=== PATIENT | female | born 1965 | race Asian ===

== ENCOUNTER → 2017-06-24 14:42 | Outpatient (CLI) | payer OTHER, SELFPAY ==
[2017-06-24 16:05] LABS: Hematocrit 33.8 % (37-47); Hemoglobin 9.7 g/dl (12.0-15.0); Mean Corp Hgb Conc 28.7 g/gl (32-36); Mean Corpuscular Hgb 14.9 pg (27.0-32.0); Mean Corpuscular Volume 51.8 fL (81-99); Platelet Count 297 K/mm3 (150-450); RBC Distribution Width CV 21.8 % (11.6-14.6); RBC Distribution Width SD 38.8 fl (35.1-43.9); Red Blood Count 6.52 M/mm3 (4.2-5.4); White Blood Count 8.9 K/mm3 (4.4-11.0)
[2017-06-24 16:07] LABS: Scan Indicated on CBC? Y/N YES- FLAGS NOTED
[2017-06-24 16:11] LABS: AST(SGOT) 29 U/L (15-37); Alanine Aminotransfer ALT/SGPT 52 U/L (13-56); Albumin, Serum 3.8 g/dL (3.2-5.0); Alkaline Phosphatase 62 U/L (45-117); Bilirubin, Direct 0.09 mg/dL (0.00-0.30); Globulin 4.5 g/dL (2.2-4.2); Iron 19 ug/dL (50-170); Protein, Total 8.3 g/dL (6.4-8.2)
[2017-06-28 09:46] LABS: Pathologist Review Reviewed
== END ==
PROVIDERS: Family Provider Family Medicine; PCP Family Medicine; Visit Provider Internal Medicine Gastroenterology
DX: D50.9 Iron deficiency anemia, unspecified (principal); B18.1 Chronic viral hepatitis B without delta-agent
CPT/HCPCS: 36415; 80076; 82105; 83540; 85027

== ENCOUNTER → 2018-08-02 10:30 | Outpatient (CLI) | payer BC, SELFPAY ==
[2013-07-04 08:47] VITALS: BMI 22.4
[2018-08-02 12:19] LABS: Hematocrit 44.2 % (37-47); Hemoglobin 14.4 g/dl (12.0-15.0); Mean Corp Hgb Conc 32.6 g/gl (32-36); Mean Corpuscular Hgb 20.7 pg (27.0-32.0); Mean Corpuscular Volume 63.5 fL (81-99); Platelet Count 187 K/mm3 (150-450); RBC Distribution Width CV 15.1 % (11.6-14.6); RBC Distribution Width SD 33.8 fl (35.1-43.9); Red Blood Count 6.96 M/mm3 (4.2-5.4)
[2018-08-02 12:20] LABS: Scan Indicated on CBC? Y/N YES- FLAGS NOTED
[2018-08-02 12:53] LABS: ALB/GLOB Ratio 0.9 RATIO (0.9-2.4); AST(SGOT) 20 U/L (15-37); Alanine Aminotransfer ALT/SGPT 30 U/L (13-56); Albumin, Serum 3.9 g/dL (3.2-5.0); Alkaline Phosphatase 60 U/L (45-117); Anion Gap 7 (5-15); BUN 14 mg/dL (7-18); Calcium,Total 9.3 mg/dL (8.5-10.1); Chloride 104 mmol/L (98-107); Creatinine, Serum 0.93 mg/dL (0.55-1.02); EST Glomerular Filtration Rate 66 mL/min (>60); Est Glom Filt Rate - Afr Amer 80 mL/min (>60); Globulin 4.3 g/dL (2.2-4.2); Glucose 91 mg/dL (74-106); Iron 99 ug/dL (50-170); Potassium 3.6 mmol/L (3.5-5.1); Protein, Total 8.2 g/dL (6.4-8.2); Sodium Level 139 mmol/L (136-145)
[2018-08-03 08:29] LABS: AFP, Tumor Marker 2.5 ng/mL (0.0-8.3)
== END ==
PROVIDERS: Family Provider Family Medicine; PCP Family Medicine; Referring Provider Internal Medicine Gastroenterology; Visit Provider Internal Medicine Gastroenterology
DX: B18.1 Chronic viral hepatitis B without delta-agent (principal); D64.9 Anemia, unspecified
CPT/HCPCS: 36415; 80053; 82105; 83540; 85027

== ENCOUNTER → 2018-08-28 10:56 | Outpatient (CLI) | payer BC, SELFPAY ==
--- NOTE | 2018-08-28 11:08 | MRI_ITS ---
STUDY: BILATERAL BREAST MR WITHOUT AND WITH CONTRAST REASON FOR EXAM: Female, 53 years old. Right breast mass. Abnormal right mammogram and right breast ultrasound. Patient scheduled for biopsy August 30, 2018. TECHNIQUE: Multi-sequence multi-echo imaging of both breasts was performed with a dedicated breast coil. T1-weighted and T2-weighted images were performed before the administration of contrast. T1-weighted images were also performed after the administration of 9.5 IV Dotarem without complications. COMPARISON: FINDINGS: RIGHT BREAST: The breast tissue is scattered fibroglandular densities with minimal background enhancement. At the 12:00 position of the right breast, corresponding to the mammographic and ultrasonographic findings, approximately 1 cm above the nipple there is an irregular heterogeneously enhancing mass measuring 3 cm x 2.7 cm x 3.3 cm. This mass is highly suspicious for breast carcinoma. LEFT BREAST: The breast tissue is scattered fibroglandular densities with minimal background enhancement. There are no abnormal enhancing masses or areas of non-mass enhancement in the left breast. There are no enlarged or abnormal lymph nodes. There is no abnormality in the visualized regions of the chest or liver. MRI/Breast Bilateral W/O and W IMPRESSION: Heterogeneously irregular enhancing mass at the 12:00 position of the right breast measuring 3 cm x 2.7 cm x 3.3 cm highly suspicious for breast carcinoma. No other abnormality is present. CATEGORY: BIRADS Category 5: Highly Suggestive of Malignancy - Appropriate Action Should Be Taken. A letter regarding these results will be sent to the patient by the facility within 30 days. Electronically Signed: Kolton Moya MD at 16:21 EDT , Service support ,
== END ==
LOC: MRI 10:57
PROVIDERS: Family Provider Family Medicine; PCP Family Medicine
DX: N63.10 Unspecified lump in the right breast, unspecified quadrant (principal)
CPT/HCPCS: 77049; A9575; A4216; C8908

== ENCOUNTER 2018-10-05 13:33 | Inpatient (IN) | payer BC, SELFPAY ==
[2018-10-05] VITALS (9 sets, daily range): BP systolic 115–136; BP diastolic 66–90; PULSE 104–122; RESP 16–17; TEMP 37.1–37.6; O2SAT 97–99; BMI 21.1; BMI 20.5; BMI 20.6
[2018-10-05 14:20] LABS: Absolute Lymphocyte Count 1.26 X10^3/uL (0.83-4.51); Eosinophil# 0.04 X10^3/uL; Eosinophils% 2.9 % (0-5); Hematocrit 37.9 % (37-47); Lymphocyte # 1.26 X10^3/ul (4.0); Lymphocyte % 92.6 % (19-41); Mean Corp Hgb Conc 31.7 g/dL (32-36); Mean Corpuscular Hgb 20.5 pg (27.0-32.0); Mean Corpuscular Volume 64.8 fL (81-99); Mean Platelet Vol. 10.3 fl (6.2-12.0); Monocyte# 0.04 X10^3/uL; Monocyte% 2.9 % (0-10); NRBC Flagged by Analyzer 0 % (0-5); Neutrophil # 0.02 X10^3/uL (2.7-7.7); Neutrophil % 1.6 % (47-70); POSITIVE COUNT YES; POSITIVE DIFFERENTIAL YES; POSITIVE MORPHOLOGY YES; Platelet Count 125 K/mm3 (150-450); RBC Distribution Width CV 14.6 % (11.6-14.6); RBC Distribution Width SD 33.2 fl (35.1-43.9); Red Blood Count 5.85 M/mm3 (4.2-5.4)
[2018-10-05] MEDS: 0.9% Normal Saline 1,000 ML 125 ML IV ×2 (14:26→22:24)
[2018-10-05 14:27] LABS: Differential Indicated SCAN CRITERIA MET
[2018-10-05 14:29] LABS: White Blood Count 1.4 K/mm3 (4.4-11.0)
--- NOTE | 2018-10-05 14:29 | ED.RN ---
LAB CALLED WITH WBC 1.4. DR. COTTON INFORMED OF SAME.
[2018-10-05 14:34] LABS: ALB/GLOB Ratio 0.9 RATIO (0.9-2.4); AST(SGOT) 7 U/L (15-37); Alanine Aminotransfer ALT/SGPT 24 U/L (13-56); Albumin, Serum 3.3 g/dL (3.2-5.0); Alkaline Phosphatase 69 U/L (45-117); Anion Gap 7 (5-15); BUN 17 mg/dL (7-18); BUN/Creat Ratio 20.4 RATIO (10-20); Chloride 103 mmol/L (98-107); Creatinine, Serum 0.83 mg/dL (0.55-1.02); EST Glomerular Filtration Rate 76 mL/min (>60); Est Glom Filt Rate - Afr Amer 92 mL/min (>60); Estimated Creatinine Clearance 69.72 ml/min; Globulin 3.8 g/dL (2.2-4.2); Glucose 130 mg/dL (74-106); Potassium 3.9 mmol/L (3.5-5.1); Protein, Total 7.1 g/dL (6.4-8.2); Sodium Level 138 mmol/L (136-145)
[2018-10-05 14:40] LABS: Lactic Acid 1.8 mmol/L (0.4-2.0)
[2018-10-05 14:45] LABS: Differential Comment SCANNED
[2018-10-05 14:52] LABS: Mucous, Urine 0 SEEN /hpf (<or=2+); Red Blood Cells-Urine 0 SEEN /hpf (0-5); White Blood Cells 0 SEEN /hpf (0-5)
[2018-10-05 15:06] LABS: Color, Urine Yellow (Yellow); Glucose, Dipstick Normal (Normal); Ketone-Dipstick Negative (Negative); Leukocyte Esterase-Dipstick Negative /ul (Negative); Nitrite-Dipstick Negative (Negative); Occult Blood-Urine Negative /ul (Negative); Protein-Dipstick Negative (Negative); Urine Bilirubin Dipstick Negative (Negative); Urine Clarity Sl. Cloudy (Clear); Urine Urobilinogen Normal (Normal); Urine pH 6.5 (5.0 - 8.0)
[2018-10-05 15:13] LABS: Bacteria RARE /hpf (None Seen); Squamous Epithelial Cells - UA 0-5 SEEN /hpf (5-10)
--- NOTE | 2018-10-05 15:29 | ED.DCSUM_ITS ---
- ER Visit Summary Date of Service: 10/05/18 Chief Complaint: [Fever] History of Present Illness: The patient is a 53 F [presents to the emergency department with a fever that started yesterday evening. Patient states that she is currently being treated for breast cancer and had a port placed in her left chest on September 20. Patient started chemotherapy and and received Neulasta as well as her chemotherapy on September 28. Patient was noted to be neutropenic today and oncology referred her to the emergency department for admission and IV antibiotics. Patient also was noted to have some redness to the port site and there was concern for possible port infection. Patient complains of a slight headache and some fatigue. Patient has history of diabetes as well as hepatitis B and history of breast cancer.] Physical Examination: [HEENT-PERRLA, EOMI. Cranial nerves II through XII g rossly intact. TMs clear. Mucous membranes moist. No adenopathy. Cardiovascular-regular rate and rhythm without murmur or ectopy Lungs-clear to auscultation, chest wall stable without crepitus or subcu emphysema. Left chest-there is a Mediport in the chest wall with some surrounding faint erythema noted. The incision site is healing well and I do not appreciate any obvious purulent drainage. Abdomen-normoactive bowel sounds, soft, nontender, no rebound or rigidity, no peritoneal signs. Extremities-intact ?4, normal range of motion, normal pulses, atraumatic] Test Results: [CBC with differential of 1.4, hemoglobin 12, hematocrit 38, plates 126. Patient had an absolute neutrophil count of 0. Chemistries unremarkable. Lactate was 1.8. LFTs were normal. Urinalysis was normal. Blood cultures ordered. Urine cultures ordered.] She had one culture drawn from the port and one peripheral. Emergency Department Course and Treatment: [Patient was started on meropenem 1 g IV.] Treatment Plan: [Admit for IV antibiotics] Disposition: [Admit] Impression: [Neutropenic fever Concern for port infection] This note was generated with [employer] dictation software. It may contain incorrect words, spelling, and punctuation that were not noted in review of the chart prior to signing ED Disposition - Plan for ED Patient: Referrals: Brayden Sparrow DO [Primary Care Provider] -
--- NOTE | 2018-10-05 15:44 | PCM.HP.STD ---
History of Present Illness Date of Admission: 10/05/18 Chief Complaint: fever The patient is a 53 year old F with a PMH of recently diagnosed right breast cancer on chemotherapy. She follows up with Dr. Haddad. She was admitted through the ED on 10/05/2018 with a complaint of fever of 1 day duration. She also had associated chills and noticed some redness around the area of the port. Patient has had 4 cycles of chemotherapy so far. She denied any nausea vomiting or headache, chest pain, abdominal pain, diarrhea or vomiting. Review of systems otherwise negative. On reviewing the ED, temperature was 99.5 Fahrenheit and pulse rate was 104 and blood pressure was 130/90. WBC was 1.4 and CBC was otherwise unremarkable. Chemistry was unremarkable with a lactic acid of 1.8. She has been admitted to be managed for neutropenic fever due to for probable port infection. [] Past Medical History Allergies No Known Allergies Allergy (Verified 10/05/18 13:36) Home Medications: Ambulatory Orders Medication Instructions Recorded metFORMIN HCl [Glucophage] 500 mg PO BIDCM 07/04/13 Entecavir 1 tab PO DAILY 10/05/18 Semaglutide [Ozempic] 1 mg SQ TU 10/05/18 Surgical History: - - chemotherapy port placement in September 2018 Psychiatric History: No pertinent psych hx Lives: Spouse/ Significant Other Smoking Status: Never smoker Alcohol: None Drugs: None - *Family History Maternal History Items: No pertinent history Paternal History Items: No pertinent history Review of Systems Constitutional: Reports: Chills, Fever. Denies: Malaise, Weakness, Weight Change, Fatigue Eyes: Denies: Blurred vision HEENT: Denies: Head Aches, Sinus Congestion, Sinus Drainage Cardiovascular: Denies: Chest Pain, Palpitations Respiratory: Denies: Cough, Shortness of Breath, Shortness of breath at rest, Shortness of breath upon exertion, Sputum production Gastrointestinal: Denies: Abdominal Pain, Nausea, Vomiting Genitourinary: Denies: Dysuria Musculoskeletal: Denies: Joint Pain, Joint Tenderness Skin: Reports: - - redness at site of chemotherapy port Neurological: Denies: Numbness, Tingling, Focal weakness Psychiatric: Denies: Anxiety, Depression, Homicidal Ideations, Suicidal Ideations Hematologic/ Lymphatic: Denies: Easy Bruising, Easy Bleeding VTE Information - Inpt Only VTE Present on Admission: No VTE Pharm Prophylaxis ordered?: Yes - Physical Exam General: Alert, Oriented x3, Cooperative, No apparent distress HEENT: Atraumatic, PERRLA, EOMI, Normocephalic Oral: Moist Mucosa Neck: Supple, No JVD, Negative Carotid Bruits Lungs: Clear to auscultation, Normal air movement, No rhonchi, No wheeze, No rales Cardiovascular: Normal S1, Normal S2, No murmurs, Tachycardic Abdomen: Bowel Sounds Present, Soft, Non Tender, Non-Distended, No Hepato-splenomegaly Extremities: No clubbing, No cyanosis, No edema, Capillary Refill Less than 3 Seconds Skin: - - mild erythema and tenderness at site of chemotherapy port Musculoskeletal: No Tenderness to Palpation of Joints or Extremities Lymphatic: No Cervical, Supraclavicular, or Inguinal Adenopathy Neurological: Cranial nerves II-XII grossly intact, Neuro grossly intact, Motor Exam 5/5 strength throughout Psych/Mental Status: Normal Affect, Appropriate, Alert and oriented to time, place, person, mood and affect Vital Signs Temp Pulse Resp BP Pulse Ox 99.5 F H 106 H 16 124/79 H 99 10/05/18 14:59 10/05/18 14:59 10/05/18 14:59 10/05/18 14:59 10/05/18 14:59 Oxygen Delivery Method Room Air Weight: 127 lb Body Mass Index (BMI) 21.1 Laboratory Tests Past 24 Hrs 10/05/18 10/05/18 10/05/18 14:10 14:10 14:10 WBC 1.4 L* RBC 5.85 H Hgb 12.0 Hct 37.9 MCV 64.8 L MCH 20.5 L MCHC 31.7 L RDW Std Deviation 33.2 L RDW Coeff of Kimberly 14.6 Plt Count 125 L MPV 10.3 Immature Gran % (Auto) 0.000 Neut % (Auto) 1.6 L Lymph % (Auto) 92.6 H [place] % (Auto) 2.9 Eos % (Auto) 2.9 Baso % (Auto) 0.0 Absolute Neuts (auto) 0.0 L Absolute Lymphs (auto) 1.26 Nucleated RBC % 0 Differential Comment SCANNED Diff Path Review May foll Sodium 138 Potassium 3.9 Chloride 103 Carbon Dioxide 28.0 Anion Gap 7 BUN 17 Creatinine 0.83 Estim Creat Clear Calc 69.72 Est GFR (MDRD) Af Amer 92 Est GFR (MDRD) Non-Af 76 BUN/Creatinine Ratio 20.4 H Glucose 130 H Lactic Acid 1.8 Calcium 9.0 Total Bilirubin 0.30 AST 7 L ALT 24 Alkaline Phosphatase 69 Total Protein 7.1 Albumin 3.3 Globulin 3.8 Albumin/Globulin Ratio 0.9 Urine Color Urine Clarity Urine pH Ur Specific [place] Urine Protein Urine Glucose (UA) Urine Ketones Urine Occult Blood Urine Nitrite Urine Bilirubin Urine Urobilinogen Ur Leukocyte Esterase Urine RBC Urine WBC Ur Squamous Epith Cells Urine Bacteria Urine Mucus 10/05/18 14:45 WBC RBC Hgb Hct MCV MCH MCHC RDW Std Deviation RDW Coeff of Kimberly Plt Count MPV Immature Gran % (Auto) Neut % (Auto) Lymph % (Auto) [place] % (Auto) Eos % (Auto) Baso % (Auto) Absolute Neuts (auto) Absolute Lymphs (auto) Nucleated RBC % Differential Comment Diff Path Review Sodium Potassium Chloride Carbon Dioxide Anion Gap BUN Creatinine Estim Creat Clear Calc Est GFR (MDRD) Af Amer Est GFR (MDRD) Non-Af BUN/Creatinine Ratio Glucose Lactic Acid Calcium Total Bilirubin AST ALT Alkaline Phosphatase Total Protein Albumin Globulin Albumin/Globulin Ratio Urine Color Yellow Urine Clarity Sl. Cloudy Urine pH 6.5 Ur Specific [place] 1.010 Urine Protein Negative Urine Glucose (UA) Normal Urine Ketones Negative Urine Occult Blood Negative Urine Nitrite Negative Urine Bilirubin Negative Urine Urobilinogen Normal Ur Leukocyte Esterase Negative Urine RBC 0 SEEN Urine WBC 0 SEEN Ur Squamous Epith Cells 0-5 SEEN Urine Bacteria RARE Urine Mucus 0 SEEN Assessment/Plan 53-year-old female admitted with a complaint of fever and redness around her port. 1. Sepsis due to neutropenic fever admit to Med Surg with telemetry SIRS criteria is 2./4 (tachycardia and leucopenia), though leucopenia can be explained by chemotherapy Lactic acid is 1.9. Blood cultures from port and from periphery Started on IV meropenem. Will continue. Consult general surgery on account of suspicion of port infection as ports may need to be removed. Consult oncology Chemotherapy precautions. 2. Neutropenic fever due to probable port infection: As under 1 3. Leukopenia: White cell count is 1.4. This is likely due to chemotherapy. Recently received Neulasta. Subcu Granix. 4. History of hepatitis B: Treatment na?ve. 5. Diabetes mellitus: On metformin and semaglutide. Insulin sliding scale. accuchecks [facility]. DVT prophylaxis: lovenox Code Visit Inpatient E&M: 75708 Init Hosp L3
--- NOTE | 2018-10-05 15:44 | NURSING ---
308 KORAM NEUTROPENIC FEVER
[2018-10-05 16:45] LABS: Bedside Glucose 102 mg/dL (70-110)
[2018-10-05] MEDS: 0.9% NaCl Peripheral Flush Adult/Peds IV (17:45)
[2018-10-05] MEDS: metFORMIN HCl 500 MG Tablet PO (17:45)
[2018-10-05] MEDS: Acetaminophen 325 MG Tablet 650 MG PO (17:47)
[2018-10-05 21:35] LABS: Bedside Glucose 134 mg/dL (70-110)
[2018-10-05] MEDS: 0.9% NaCl IVPB Med Flush (250 mL) 15 ML IV (21:47)
[2018-10-06] VITALS (10 sets, daily range): BP systolic 135–142; BP diastolic 84–89; PULSE 98–113; RESP 16–18; TEMP 36.9–37.6; O2SAT 97–100
[2018-10-06 05:26] LABS: Absolute Lymphocyte Count 1.11 X10^3/uL (0.83-4.51); Eosinophil# 0.02 X10^3/uL; Eosinophils% 1.7 % (0-5); Hematocrit 33.3 % (37-47); Hemoglobin 10.3 g/dL (12.0-15.0); Lymphocyte # 1.11 X10^3/ul (4.0); Lymphocyte % 92.5 % (19-41); Mean Corp Hgb Conc 30.9 g/dL (32-36); Mean Corpuscular Volume 64.8 fL (81-99); Mean Platelet Vol. 10.4 fl (6.2-12.0); Monocyte# 0.04 X10^3/uL; Monocyte% 3.3 % (0-10); NRBC Flagged by Analyzer 0 % (0-5); Neutrophil # 0.03 X10^3/uL (2.7-7.7); Neutrophil % 2.5 % (47-70); POSITIVE COUNT YES; POSITIVE DIFFERENTIAL YES; POSITIVE MORPHOLOGY YES; Platelet Count 99 K/mm3 (150-450); RBC Distribution Width CV 14.4 % (11.6-14.6); RBC Distribution Width SD 33.2 fl (35.1-43.9); Red Blood Count 5.14 M/mm3 (4.2-5.4)
[2018-10-06 05:53] LABS: Differential Indicated SCAN CRITERIA MET
[2018-10-06 05:54] LABS: Anion Gap 8 (5-15); BUN 12 mg/dL (7-18); BUN/Creat Ratio 17.7 RATIO (10-20); Calcium,Total 8.2 mg/dL (8.5-10.1); Chloride 110 mmol/L (98-107); Creatinine, Serum 0.68 mg/dL (0.55-1.02); EST Glomerular Filtration Rate 96 mL/min (>60); Est Glom Filt Rate - Afr Amer 116 mL/min (>60); Estimated Creatinine Clearance 83.64 ml/min; Glucose 133 mg/dL (74-106); Potassium 3.9 mmol/L (3.5-5.1); Sodium Level 144 mmol/L (136-145); White Blood Count 1.2 K/mm3 (4.4-11.0)
[2018-10-06 05:57] LABS: Differential Comment SCANNED; Target Cells 1+
[2018-10-06 05:58] LABS: Microcytosis 3+
[2018-10-06] MEDS: 0.9% Normal Saline 1,000 ML 125 ML IV ×3 (06:12→22:43)
[2018-10-06 07:11] LABS: Bedside Glucose 119 mg/dL (70-110)
--- NOTE | 2018-10-06 07:40 | CON.PCM_ITS ---
Problem List (1) Neutropenic fever Status: Acute Reason for Consult Date of Consultation: 10/06/18 Reason for Consultation: Possible port site infection History of Present Illness: The patient is a 53 year old F was admitted with neutropenic fevers last evening. She reports that she is not having any drainage from the port site. It was placed about 2 weeks ago for breast cancer. She reports that it is tender when she moves but that this is been like this since it was inserted. Past Medical History Allergies No Known Allergies Allergy (Verified 10/05/18 13:36) Home Medications: Ambulatory Orders Medication Instructions Recorded metFORMIN HCl [Glucophage] 500 mg PO BIDCM 07/04/13 Entecavir 1 tab PO DAILY 10/05/18 Semaglutide [Ozempic] 1 mg SQ TU 10/05/18 Surgical History: - - chemotherapy port placement in September 2018 Psychiatric History: No pertinent psych hx Lives: Spouse/ Significant Other Smoking Status: Never smoker Tobacco Use: Non-smoker Alcohol: None Drugs: None - *Family History Maternal History Items: No pertinent history Paternal History Items: No pertinent history Review of Systems Constitutional: Reports: Fever. Denies: Anorexia, Chills HEENT: Denies: Difficulty Hearing Cardiovascular: Denies: Chest Pain Respiratory: Denies: Cough Gastrointestinal: Denies: Abdominal Pain Patient Problems: Active and Suspected Problems Neutropenic fever (Acute) - Physical Exam General: Alert, Oriented x3 Lungs: Normal air movement Cardiovascular: Regular rate, Regular Rhythm Abdomen: Soft, Non Tender, Non-Distended Vital Signs Temp Pulse Resp BP Pulse Ox 98.5 F 104 H 16 139/84 H 97 10/06/18 03:35 10/06/18 04:00 10/06/18 03:35 10/06/18 03:35 10/06/18 03:35 Oxygen Delivery Method Room Air Weight: 123 lb 8 oz Body Mass Index (BMI) 20.5 Intake and Output for Last 24 Hours 10/04/18 10/05/18 10/06/18 23:59 23:59 23:59 Intake Total 1150 / 1150 1364 / 1364 Balance 1150 / 1150 1364 / 1364 Laboratory Tests Past 24 Hrs 10/05/18 10/05/18 10/05/18 14:10 14:10 14:10 WBC 1.4 L* RBC 5.85 H Hgb 12.0 Hct 37.9 MCV 64.8 L MCH 20.5 L MCHC 31.7 L RDW Std Deviation 33.2 L RDW Coeff of Kimberly 14.6 Plt Count 125 L MPV 10.3 Immature Gran % (Auto) 0.000 Neut % (Auto) 1.6 L Lymph % (Auto) 92.6 H [place] % (Auto) 2.9 Eos % (Auto) 2.9 Baso % (Auto) 0.0 Absolute Neuts (auto) 0.0 L Absolute Lymphs (auto) 1.26 Nucleated RBC % 0 Differential Comment SCANNED Diff Path Review May foll Microcytosis Target Cells Sodium 138 Potassium 3.9 Chloride 103 Carbon Dioxide 28.0 Anion Gap 7 BUN 17 Creatinine 0.83 Estim Creat Clear Calc 69.72 Est GFR (MDRD) Af Amer 92 Est GFR (MDRD) Non-Af 76 BUN/Creatinine Ratio 20.4 H Glucose 130 H Lactic Acid 1.8 Calcium 9.0 Total Bilirubin 0.30 AST 7 L ALT 24 Alkaline Phosphatase 69 Total Protein 7.1 Albumin 3.3 Globulin 3.8 Albumin/Globulin Ratio 0.9 Urine Color Urine Clarity Urine pH Ur Specific [place] Urine Protein Urine Glucose (UA) Urine Ketones Urine Occult Blood Urine Nitrite Urine Bilirubin Urine Urobilinogen Ur Leukocyte Esterase Urine RBC Urine WBC Ur Squamous Epith Cells Urine Bacteria Urine Mucus 10/05/18 10/06/18 10/06/18 14:45 05:05 05:05 WBC 1.2 L* RBC 5.14 Hgb 10.3 L Hct 33.3 L MCV 64.8 L MCH 20.0 L MCHC 30.9 L RDW Std Deviation 33.2 L RDW Coeff of Kimberly 14.4 Plt Count 99 L MPV 10.4 Immature Gran % (Auto) 0.000 Neut % (Auto) 2.5 L Lymph % (Auto) 92.5 H [place] % (Auto) 3.3 Eos % (Auto) 1.7 Baso % (Auto) 0.0 Absolute Neuts (auto) 0.0 L Absolute Lymphs (auto) 1.11 Nucleated RBC % 0 Differential Comment SCANNED Diff Path Review May foll Microcytosis 3+ Target Cells 1+ Sodium 144 Potassium 3.9 Chloride 110 H Carbon Dioxide 26.0 Anion Gap 8 BUN 12 Creatinine 0.68 Estim Creat Clear Calc 83.64 Est GFR (MDRD) Af Amer 116 Est GFR (MDRD) Non-Af 96 BUN/Creatinine Ratio 17.7 Glucose 133 H Lactic Acid Calcium 8.2 L Total Bilirubin AST ALT Alkaline Phosphatase Total Protein Albumin Globulin Albumin/Globulin Ratio Urine Color Yellow Urine Clarity Sl. Cloudy Urine pH 6.5 Ur Specific [place] 1.010 Urine Protein Negative Urine Glucose (UA) Normal Urine Ketones Negative Urine Occult Blood Negative Urine Nitrite Negative Urine Bilirubin Negative Urine Urobilinogen Normal Ur Leukocyte Esterase Negative Urine RBC 0 SEEN Urine WBC 0 SEEN Ur Squamous Epith Cells 0-5 SEEN Urine Bacteria RARE Urine Mucus 0 SEEN POC Glucose 10/06/18 10/05/18 10/05/18 07:04 21:30 16:40 POC Glucose 119 H 134 H 102 Assessment/Plan All Active Problems Neutropenic fever (Acute) 53-year-old female with neutropenic fever 1. I inspected the patient's port site. There is no purulent drainage. There is minimal erythema if any. It is not blanching and there is minimal tenderness. There are no overt signs of infection. I will await blood cultures and see if it grows anything. Continue antibiotics for now. No indication to remove the port at this time. Geronimo Cheng MD Pager: [facility] [address] [place] [address], [address] [place] [address] Office:
[2018-10-06] MEDS: ENTECAVIR 1 MG PO (08:35)
[2018-10-06] MEDS: metFORMIN HCl 500 MG Tablet PO (08:42)
[2018-10-06] MEDS: Glucerna Shake 120 ML LIQUID PO ×4 (08:42→22:44)
[2018-10-06] MEDS: Enoxaparin 40 MG/0.4 ML Syringe SC (08:42)
--- NOTE | 2018-10-06 10:43 | CASEMGMT ---
Social Work Note SW reviewed pt's chart, pt recently diagnosed with breast cancer. SW met with pt, introduced self and role at [facility]. Pt is alert and orientated x4. Pt states that she was diagnosed with breast cancer around two months ago. Pt states her first chemotherapy was September 28. Pt confirms she is currently receiving chemotherapy. Pt states that she has good support and states her family and friends are supportive. Pt states that she has reached out to friends that have had breast cancer and has talked to them. Pt denied any additional needs or concerns at this time. Radha Peng [employer]NALY[employer], [employer]
--- NOTE | 2018-10-06 10:44 | PCM.PN.HOSP ---
Patient Problems: Active and Suspected Problems Neutropenic fever (Acute) Subjective: Feels well, has a little bit of tenderness when you push on her port but otherwise has no pain. Vitals/I&O's: Vital Signs Temp Pulse Resp BP Pulse Ox 98.5 F 103 H 18 135/87 H 100 10/06/18 08:30 10/06/18 08:30 10/06/18 08:30 10/06/18 08:30 10/06/18 08:30 Oxygen Delivery Method Room Air Weight: 123 lb 8 oz Body Mass Index (BMI) 20.5 Intake and Output for Last 24 Hours 10/04/18 10/05/18 10/06/18 23:59 23:59 23:59 Intake Total 1150 / 1150 1364 / 1364 Balance 1150 / 1150 1364 / 1364 General: Alert, Oriented x3, Cooperative, No apparent distress HEENT: Atraumatic, PERRLA, EOMI, Normocephalic Oral: Moist Mucosa Neck: Supple, No JVD Lungs: Clear to auscultation, Normal air movement, No rhonchi, No wheeze, No rales Cardiovascular: Regular rate, Regular Rhythm, Normal S1, Normal S2, No murmurs Abdomen: Soft, Non Tender, Non-Distended, No Hepato-splenomegaly Extremities: No edema, Capillary Refill Less than 3 Seconds Skin: - - An area of erythema that is slight over the previous port incision. Neurological: Neuro grossly intact, Sensory exam intact to light touch and pain Psych/Mental Status: Normal Affect, Appropriate Laboratory Results 10/05/18 14:10: WBC 1.4 L*, RBC 5.85 H, Hgb 12.0, Hct 37.9, MCV 64.8 L, MCH 20.5 L, MCHC 31.7 L, RDW Std Deviation 33.2 L, RDW Coeff of Kimberly 14.6, Plt Count 125 L, MPV 10.3, Immature Gran % (Auto) 0.000, Neut % (Auto) 1.6 L, Lymph % (Auto) 92.6 H, [place] % (Auto) 2.9, Eos % (Auto) 2.9, Baso % (Auto) 0.0, Absolute Neuts (auto) 0.0 L, Absolute Lymphs (auto) 1.26, Nucleated RBC % 0, Differential Comment SCANNED, Diff Path Review June foll 10/05/18 14:10: Sodium 138, Potassium 3.9, Chloride 103, Carbon Dioxide 28.0, Anion Gap 7, BUN 17, Creatinine 0.83, Estim Creat Clear Calc 69.72, Est GFR (MDRD) Af Amer 92, Est GFR (MDRD) Non-Af 76, BUN/Creatinine Ratio 20.4 H, Glucose 130 H, Calcium 9.0, Total Bilirubin 0.30, AST 7 L, ALT 24, Alkaline Phosphatase 69, Total Protein 7.1, Albumin 3.3, Globulin 3.8, Albumin/Globulin Ratio 0.9 10/05/18 14:10: Lactic Acid 1.8 10/05/18 14:45: Urine Color Yellow, Urine Clarity Sl. Cloudy, Urine pH 6.5, Ur Specific [place] 1.010, Urine Protein Negative, Urine Glucose (UA) Normal, Urine Ketones Negative, Urine Occult Blood Negative, Urine Nitrite Negative, Urine Bilirubin Negative, Urine Urobilinogen Normal, Ur Leukocyte Esterase Negative, Urine RBC 0 SEEN, Urine WBC 0 SEEN, Ur Squamous Epith Cells 0-5 SEEN, Urine Bacteria RARE, Urine Mucus 0 SEEN 10/05/18 16:40: POC Glucose 102 10/05/18 21:30: POC Glucose 134 H 10/06/18 05:05: Sodium 144, Potassium 3.9, Chloride 110 H, Carbon Dioxide 26.0, Anion Gap 8, BUN 12, Creatinine 0.68, Estim Creat Clear Calc 83.64, Est GFR (MDRD) Af Amer 116, Est GFR (MDRD) Non-Af 96, BUN/Creatinine Ratio 17.7, Glucose 133 H, Calcium 8.2 L 10/06/18 05:05: WBC 1.2 L*, RBC 5.14, Hgb 10.3 L, Hct 33.3 L, MCV 64.8 L, MCH 20.0 L, MCHC 30.9 L, RDW Std Deviation 33.2 L, RDW Coeff of Kimberly 14.4, Plt Count 99 L, MPV 10.4, Immature Gran % (Auto) 0.000, Neut % (Auto) 2.5 L, Lymph % (Auto) 92.5 H, [place] % (Auto) 3.3, Eos % (Auto) 1.7, Baso % (Auto) 0.0, Absolute Neuts (auto) 0.0 L, Absolute Lymphs (auto) 1.11, Nucleated RBC % 0, Differential Comment SCANNED, Diff Path Review May foll, Microcytosis 3+, Target Cells 1+ 10/06/18 07:04: POC Glucose 119 H Current Medications Acetaminophen (Tylenol) 650 mg PO Q6H PRN PRN PRN Reason: FEVER Last Admin: 10/05/18 17:47 Dose: 650 mg Documented by: Dextrose (D50w Syringe) 0 gm IV X1 PRN; Protocol PRN Reason: Hypoglycemia Enoxaparin Sodium (Lovenox) 40 mg SC DAILY@1000 DEXTER Last Admin: 10/06/18 08:42 Dose: 40 mg Documented by: Glucagon () 1 mg IM .X1 PRN PRN Reason: Hypoglycemia Sodium Chloride () 1,000 mls @ 125 mls/hr IV .Q8H [facility] Last Admin: 10/06/18 06:12 Dose: 125 mls/hr Documented by: Meropenem 1 gm/ Sodium (Chloride) 120 mls @ 33 mls/hr IV Q8 DEXTER Last Admin: 10/06/18 06:13 Dose: 33 mls/hr Documented by: Sodium Chloride () 250 mls @ 15 mls/hr IV .[id number] PRN PRN Reason: SALINE FLUSH Last Admin: 10/05/18 21:47 Dose: 15 mls/hr Documented by: Insulin Human Lispro (Humalog Kwikpen (Bkc)) 0 unit SC ACHS [facility]; Protocol Last Admin: 10/06/18 07:30 Dose: Not Given Documented by: Metformin HCl (Glucophage) 500 mg PO BIDCM [facility] Last Admin: 10/06/18 08:42 Dose: 500 mg Documented by: Nutritional Formula (Lactose Free) (Glucerna Shake) 120 ml PO 4X/DAY [facility] Last Admin: 10/06/18 08:42 Dose: 120 ml Documented by: Ondansetron HCl (Zofran) 4 mg IV Q8H PRN PRN PRN Reason: NAUSEA/VOMITING Sodium Chloride () 10 - 40 ml IV UD PRN PRN Reason: SALINE FLUSH Last Admin: 10/05/18 17:45 Dose: 10 ml Documented by: Tbo-Filgrastim (Granix) 300 mcg SC DAILY [place] Medical Necessity - Tobacco Use Smoking Status: Never smoker Tobacco Use: Non-smoker Assessment/Plan All Active Problems Neutropenic fever (Acute) 1. Neutropenic fever secondary to chemotherapy for history of breast cancer -She had her first dose of chemotherapy about a week ago and she also received a dose of Neulasta -Consult to oncology -Plan for Granix to be given today -Blood cultures are pending -Neutropenia secondary to chemotherapy and she currently does not have any identifiable source of infection and therefore I do not think that this qualifies as sepsis -Continue with imipenem for prophylaxis -If blood cultures are negative tomorrow and her white count response, can plan for discharge home -She has a prescription at home for Augmentin was provided by oncology when they saw her in the office prior to admission, she can continue that likely on discharge -Appreciate surgical evaluation 2. DM 2 -We will hold metformin and Ozempic -We will continue with sliding scale insulin Accu-Cheks DVT: Lovenox Code Visit OBSV E&M: 66214 Subsequent observation care L2
[2018-10-06] MEDS: TBO-FILGRASTIM 300 MCG/0.5 ML ML SC (11:01)
[2018-10-06 11:30] LABS: Bedside Glucose 113 mg/dL (70-110)
[2018-10-06 13:00] LABS: Pathologist Review Reviewed
[2018-10-06 13:02] LABS: Pathologist Review Reviewed
--- NOTE | 2018-10-06 13:40 | CASEMGMT ---
RN IVONE Face to Face with patient for initial transition planning/care coordination assessment. RN CM introduced self and role at [facility]. Patient lying in bed, alert and oriented, at bedside. Patient willing to participate in assessment and is able to answer all questions appropriately. Care providers, pharmacy, and demographics verified. Patient wishes to discharge home, denies need for home health at this time. Patient states she has no further needs or concerns at this time. CM to follow for discharge planning needs that may arise. PCP: [facility] Specialists: Grisel, oncologist; KAYLA Campos Preferred Pharmacy: [facility] Insurance: [employer] Prescription Benefit: yes Living Will/HPOA: none LNOK: Living Arrangements: Patient lives with in 2 story home with bed and bath on first floor. Patient states she is independent at home. Transportation: self/ DME/HHC: Patient denies need for DME. Denies previous HHC. Disposition Plan: Patient to discharge home with family support and follow-up plans in place. Radha GUERRERO, RN, CM
[2018-10-06] MEDS: Acetaminophen 325 MG Tablet 650 MG PO ×2 (14:21→20:46)
--- NOTE | 2018-10-06 14:42 | CHAPLAIN ---
Type of Pastoral Visit _x__ Initial Visit ___ Follow-up Visit ___ On-call Visit ___ General Patient Visit ___ Spiritual Assessment ___ Family Conference ___ Bereavement ___ Rapid Response ___ Code Blue ___ Other (describe below) Pastoral Care Referral From _x__ Patient ___ Family ___ Nurse ___ Physician ___ Dock Associate ___ Communications Agent ___ Other (describe below) Sacrament/Intervention _x__ Active listening ___ Anointing ___ Hinduism ___ Bereavement ___ Communion _x__ Ashleigh exploration ___ ___ Life review ___ Prayer ___ Reconciliation ___ Sacrament of Sick _x__ Supportive presence ___ Wedding ___ Other (describe below) Pastoral Comments patient said that she is doing ok; spouse did most of the talking and did interpret a few times for her; both say that one day at a time is there way of coping; pt encouraged to keep looking to those things which bring her peace and kourtney; spouse gives ashleigh background story; pt and spouse are of [employer] but also attend a [employer] with interest in both faiths;
[2018-10-06 23:00] LABS: Bedside Glucose 123 mg/dL (70-110)
[2018-10-07] VITALS (9 sets, daily range): BP systolic 142–154; BP diastolic 86–100; PULSE 77–115; RESP 16–18; TEMP 36.6–37.4; O2SAT 96–99
[2018-10-07 02:00] LABS: Bedside Glucose 134 mg/dL (70-110)
[2018-10-07] MEDS: 0.9% Normal Saline 1,000 ML 125 ML IV ×3 (06:37→22:46)
[2018-10-07 06:40] LABS: Bedside Glucose 128 mg/dL (70-110)
[2018-10-07 06:43] LABS: Absolute Lymphocyte Count 0.91 X10^3/uL (0.83-4.51); Absolute Neutrophil Count 0.2 X10^3/uL (2.0-7.7); Basophil# 0.01 X10^3/uL; Basophil% 0.8 % (0-1); Eosinophil# 0.03 X10^3/uL; Eosinophils% 2.5 % (0-5); Hematocrit 34.7 % (37-47); Hemoglobin 10.8 g/dL (12.0-15.0); Lymphocyte # 0.91 X10^3/ul (4.0); Lymphocyte % 76.5 % (19-41); Mean Corp Hgb Conc 31.1 g/dL (32-36); Mean Corpuscular Volume 64.4 fL (81-99); Mean Platelet Vol. 11.2 fl (6.2-12.0); Monocyte# 0.08 X10^3/uL; Monocyte% 6.7 % (0-10); NRBC Flagged by Analyzer 0 % (0-5); Neutrophil # 0.16 X10^3/uL (2.7-7.7); Neutrophil % 13.5 % (47-70); POSITIVE COUNT YES; POSITIVE DIFFERENTIAL YES; POSITIVE MORPHOLOGY YES; Platelet Count 97 K/mm3 (150-450); RBC Distribution Width CV 14.4 % (11.6-14.6); RBC Distribution Width SD 32.2 fl (35.1-43.9); Red Blood Count 5.39 M/mm3 (4.2-5.4)
[2018-10-07 06:50] LABS: Differential Indicated SCAN CRITERIA MET; White Blood Count 1.2 K/mm3 (4.4-11.0)
[2018-10-07 06:54] LABS: Anion Gap 7 (5-15); BUN 9 mg/dL (7-18); BUN/Creat Ratio 13.4 RATIO (10-20); Calcium,Total 8.7 mg/dL (8.5-10.1); Chloride 107 mmol/L (98-107); Creatinine, Serum 0.67 mg/dL (0.55-1.02); EST Glomerular Filtration Rate 97 mL/min (>60); Est Glom Filt Rate - Afr Amer 117 mL/min (>60); Estimated Creatinine Clearance 84.89 ml/min; Glucose 129 mg/dL (74-106); Potassium 3.7 mmol/L (3.5-5.1); Sodium Level 141 mmol/L (136-145)
--- NOTE | 2018-10-07 08:42 | PN.SURG_ITS ---
Patient Problems: Active and Suspected Problems Neutropenic fever (Acute) Subjective: Blood culture still pending, urine cultures growing mixed organisms - Physical Exam General: Alert, Oriented x3, Cooperative, No apparent distress Skin: - - Left chest port site no signs of erythema or drainage Vital Signs Temp Pulse Resp BP Pulse Ox 97.8 F 107 H 16 142/96 H 98 10/07/18 02:30 10/07/18 07:33 10/07/18 02:30 10/07/18 02:30 10/07/18 02:30 Oxygen Delivery Method Room Air Weight: 123 lb 8 oz Body Mass Index (BMI) 20.5 Intake and Output for Last 24 Hours 10/05/18 10/06/18 10/07/18 23:59 23:59 23:59 Intake Total 1150 / 1150 3864 / 3864 1908 / 1908 Balance 1150 / 1150 3864 / 3864 1908 / 1908 Microbiology Past 72 Hours 10/05/18 14:45 Urine Culture - Final Urine, Clean Catch Mixed Gram Positive Organisms Laboratory Tests Past 24 Hrs 10/05/18 10/06/18 10/07/18 14:10 05:05 06:26 WBC 1.2 L* RBC 5.39 Hgb 10.8 L Hct 34.7 L MCV 64.4 L MCH 20.0 L MCHC 31.1 L RDW Std Deviation 32.2 L RDW Coeff of Kimberly 14.4 Plt Count 97 L MPV 11.2 Immature Gran % (Auto) 0.000 Neut % (Auto) 13.5 L Lymph % (Auto) 76.5 H [place] % (Auto) 6.7 Eos % (Auto) 2.5 Baso % (Auto) 0.8 Absolute Neuts (auto) 0.2 L Absolute Lymphs (auto) 0.91 Nucleated RBC % 0 Differential Comment Diff Path Review Reviewed Reviewed June Sodium Potassium Chloride Carbon Dioxide Anion Gap BUN Creatinine Estim Creat Clear Calc Est GFR (MDRD) Af Amer Est GFR (MDRD) Non-Af BUN/Creatinine Ratio Glucose Calcium 10/07/18 06:26 WBC RBC Hgb Hct MCV MCH MCHC RDW Std Deviation RDW Coeff of Kimberly Plt Count MPV Immature Gran % (Auto) Neut % (Auto) Lymph % (Auto) [place] % (Auto) Eos % (Auto) Baso % (Auto) Absolute Neuts (auto) Absolute Lymphs (auto) Nucleated RBC % Differential Comment Diff Path Review Sodium 141 Potassium 3.7 Chloride 107 Carbon Dioxide 27.0 Anion Gap 7 BUN 9 Creatinine 0.67 Estim Creat Clear Calc 84.89 Est GFR (MDRD) Af Amer 117 Est GFR (MDRD) Non-Af 97 BUN/Creatinine Ratio 13.4 Glucose 129 H Calcium 8.7 POC Glucose 10/07/18 10/06/18 10/06/18 06:31 22:49 16:47 POC Glucose 128 H 123 H 134 H 10/06/18 11:23 POC Glucose 113 H Medical Necessity - Tobacco Use Smoking Status: Never smoker Tobacco Use: Non-smoker Assessment/Plan All Active Problems Neutropenic fever (Acute) No plans to remove port unless blood cultures come back positive, currently they are pending. We will continue to follow. Sendy Figueroa M.D. Pager: [phone] [facility] [address] [place] [address], [facility], [address] [place] [address] Office: [phone] Code Visit Inpatient E&M: 83540 Subs Hosp L1
--- NOTE | 2018-10-07 09:49 | PCM.PN.HOSP ---
Patient Problems: Active and Suspected Problems Neutropenic fever (Acute) Subjective: Feels about the same as she did when she came in, some tenderness around the port but is been getting better since is been put in Vitals/I&O's: Vital Signs Temp Pulse Resp BP Pulse Ox 97.8 F 107 H 16 142/96 H 98 10/07/18 02:30 10/07/18 07:33 10/07/18 02:30 10/07/18 02:30 10/07/18 02:30 Oxygen Delivery Method Room Air Weight: 123 lb 8 oz Body Mass Index (BMI) 20.5 Intake and Output for Last 24 Hours 10/05/18 10/06/18 10/07/18 23:59 23:59 23:59 Intake Total 1150 / 1150 3864 / 3864 1907 Balance 1150 / 1150 3864 / 3864 1907 General: Alert, Oriented x3, Cooperative, No apparent distress HEENT: Atraumatic, PERRLA, EOMI, Normocephalic Oral: Moist Mucosa Neck: Supple, No JVD Lungs: Clear to auscultation, Normal air movement, No rhonchi, No wheeze, No rales Cardiovascular: Regular rate, Regular Rhythm, Normal S1, Normal S2, No murmurs Abdomen: Soft, Non Tender, Non-Distended, No Hepato-splenomegaly Extremities: No edema, Capillary Refill Less than 3 Seconds Skin: - - An area of erythema that is slight over the previous port incision. Neurological: Neuro grossly intact, Sensory exam intact to light touch and pain Psych/Mental Status: Normal Affect, Appropriate Microbiology Past 72 Hours 10/05/18 14:45 Urine, Clean Catch Urine Culture - Final Mixed Gram Positive Organisms Laboratory Results 10/05/18 14:10: Diff Path Review Reviewed 10/06/18 05:05: Diff Path Review Reviewed 10/06/18 11:23: POC Glucose 113 H 10/06/18 16:47: POC Glucose 134 H 10/06/18 22:49: POC Glucose 123 H 10/07/18 06:26: WBC 1.2 L*, RBC 5.39, Hgb 10.8 L, Hct 34.7 L, MCV 64.4 L, MCH 20.0 L, MCHC 31.1 L, RDW Std Deviation 32.2 L, RDW Coeff of Kimberly 14.4, Plt Count 97 L, MPV 11.2, Immature Gran % (Auto) 0.000, Neut % (Auto) 13.5 L, Lymph % (Auto) 76.5 H, [place] % (Auto) 6.7, Eos % (Auto) 2.5, Baso % (Auto) 0.8, Absolute Neuts (auto) 0.2 L, Absolute Lymphs (auto) 0.91, Nucleated RBC % 0, Differential Comment , Diff Path Review June10/07/18 06:26: Sodium 141, Potassium 3.7, Chloride 107, Carbon Dioxide 27.0, Anion Gap 7, BUN 9, Creatinine 0.67, Estim Creat Clear Calc 84.89, Est GFR (MDRD) Af Amer 117, Est GFR (MDRD) Non-Af 97, BUN/Creatinine Ratio 13.4, Glucose 129 H, Calcium 8.7 10/07/18 06:31: POC Glucose 128 H Current Medications Acetaminophen (Tylenol) 650 mg PO Q6H PRN PRN PRN Reason: FEVER Last Admin: 10/06/18 20:46 Dose: 650 mg Documented by: Dextrose (D50w Syringe) 0 gm IV X1 PRN; Protocol PRN Reason: Hypoglycemia Enoxaparin Sodium (Lovenox) 40 mg SC DAILY@1000 DEXTER Last Admin: 10/06/18 08:42 Dose: 40 mg Documented by: Glucagon () 1 mg IM .X1 PRN PRN Reason: Hypoglycemia Sodium Chloride () 1,000 mls @ 125 mls/hr IV .Q8H [facility] Last Admin: 10/07/18 06:37 Dose: 125 mls/hr Documented by: Meropenem 1 gm/ Sodium (Chloride) 120 mls @ 33 mls/hr IV Q8 DEXTER Last Admin: 10/07/18 06:34 Dose: 33 mls/hr Documented by: Sodium Chloride () 250 mls @ 15 mls/hr IV .[id number] PRN PRN Reason: SALINE FLUSH Last Admin: 10/05/18 21:47 Dose: 15 mls/hr Documented by: Insulin Human Lispro (Humalog Kwikpen (Bkc)) 0 unit SC ACHS [facility]; Protocol Last Admin: 10/07/18 06:34 Dose: Not Given Documented by: Nutritional Formula (Lactose Free) (Glucerna Shamarie) 120 ml PO 4X/DAY [facility] Last Admin: 10/06/18 22:44 Dose: 120 ml Documented by: Ondansetron HCl (Zofran) 4 mg IV Q8H PRN PRN PRN Reason: NAUSEA/VOMITING Sodium Chloride () 10 - 40 ml IV UD PRN PRN Reason: SALINE FLUSH Last Admin: 10/05/18 17:45 Dose: 10 ml Documented by: Tbo-Filgrastim (Granix) 300 mcg SC DAILY [facility] Last Admin: 10/06/18 11:01 Dose: 300 mcg Documented by: Medical Necessity - Tobacco Use Smoking Status: Never smoker Tobacco Use: Non-smoker Assessment/Plan All Active Problems Neutropenic fever (Acute) 1. Neutropenic fever secondary to chemotherapy for history of breast cancer -She had her first dose of chemotherapy about a week ago and she also received a dose of Neulasta -Consult to oncology -Granix was given -Blood cultures are pending -Neutropenia secondary to chemotherapy and she currently does not have any identifiable source of infection and therefore I do not think that this qualifies as sepsis -Continue with imipenem for prophylaxis -Absolute neutrophil count is 0.2, she be here for another day and will recheck a CBC in the morning -She has a prescription at home for Augmentin was provided by oncology when they saw her in the office prior to admission, she can continue that likely on discharge -Appreciate surgical evaluation 2. DM 2 -We will hold metformin and Ozempic -We will continue with sliding scale insulin Accu-Cheks DVT: Lovenox Code Visit Inpatient E&M: 19719 Subs Hosp L2
[2018-10-07] MEDS: ENTECAVIR 1 MG PO (10:13)
[2018-10-07] MEDS: Glucerna Shake 120 ML LIQUID PO ×4 (10:14→21:33)
[2018-10-07] MEDS: Enoxaparin 40 MG/0.4 ML Syringe SC (10:14)
[2018-10-07] MEDS: TBO-FILGRASTIM 300 MCG/0.5 ML ML SC (10:15)
[2018-10-07 11:50] LABS: Bedside Glucose 97 mg/dL (70-110)
[2018-10-07] MEDS: Acetaminophen 325 MG Tablet 650 MG PO ×2 (14:51→21:32)
[2018-10-07] MEDS: Insulin Lispro 100 UNIT/ML INSULN.PEN SC (16:48)
[2018-10-07 16:51] LABS: Bedside Glucose 223 mg/dL (70-110)
[2018-10-08 00:36] LABS: Bedside Glucose 114 mg/dL (70-110)
[2018-10-08 01:41] VITALS: PULSE 104
[2018-10-08 02:31] VITALS: PULSE 105
[2018-10-08 03:33] VITALS: BP 132/76; PULSE 104; RESP 18; TEMP 37.1; O2SAT 98
[2018-10-08 04:31] LABS: Hematocrit 34.1 % (37-47); Hemoglobin 10.7 g/dL (12.0-15.0); Mean Corp Hgb Conc 31.4 g/dL (32-36); Mean Corpuscular Hgb 20.4 pg (27.0-32.0); Mean Platelet Vol. 9.7 fl (6.2-12.0); POSITIVE COUNT YES; POSITIVE MORPHOLOGY YES; Platelet Count 87 K/mm3 (150-450); RBC Distribution Width CV 13.8 % (11.6-14.6); RBC Distribution Width SD 31.8 fl (35.1-43.9); Red Blood Count 5.25 M/mm3 (4.2-5.4); White Blood Count 3.4 K/mm3 (4.4-11.0)
[2018-10-08 04:41] LABS: Differential Indicated MANUAL DIFF
[2018-10-08] MEDS: 0.9% Normal Saline 1,000 ML 125 ML IV (06:21)
[2018-10-08] MEDS: 0.9% NaCl IVPB Med Flush (250 mL) 15 ML IV (06:31)
[2018-10-08 06:35] LABS: Bedside Glucose 128 mg/dL (70-110)
[2018-10-08 06:44] LABS: Eosinophil 1 % (0-5); Lymphocyte 49 % (19-41); Metamyelocyte 11 % (0-1); Monocyte 7 % (0-10); Myelocyte 1 (0-0); Neutrophil-Band 15 % (0-5); Neutrophil-Segmented 16 % (47-70); Total Cells Counted 100 (MANUAL DIFF)
[2018-10-08 06:46] LABS: Absolute Lymphocyte Count 1.65 X10^3/uL (0.83-4.51); Absolute Neutrophil Count 1.4 X10^3/uL (2.0-7.7); Dohle Bodies 1+; Lymphocyte # 1.65 X10^3/ul (4.0); Neutrophil # 1.44 X10^3/uL (2.7-7.7)
[2018-10-08 06:47] LABS: Anisocytosis 1+; Hypochromasia 2+; Microcytosis 4+; Platelet Estimate MOD DEC (ADEQ); Polychromasia RARE
--- NOTE | 2018-10-08 07:22 | DCINST_ITS ---
- Discharge Diagnoses Current Active Problems: Current Active and Chronic Problems Neutropenic fever (Acute) You will use the following diet at home:: Regular Your food should be the consistency of: Regular Your liquids should be the consistency of: Regular/Thin Discharge Activity: Return to Normal Activity, No Restrictions Call your doctor if you observe: Fever of 101 or Higher, Shortness of breath, Dizziness, Fainting spells, Swelling in the ankles, Chest pain, Increased palpitations (irregular heartbeat) Allergies/Adverse Reactions: Allergies No Known Allergies Allergy (Verified 10/05/18 13:36) Medications to take at Discharge metFORMIN HCl [Glucophage] 500 mg PO BIDCM 07/04/13 Entecavir 1 tab PO DAILY 10/05/18 Semaglutide [Ozempic] 1 mg SQ TU 10/05/18 Primary Care Physician: Brayden Sparrow DO [Primary Care Provider] - Please follow up with your Primary Care Physician in: 3-5 days Test Results: Test results from this visit will be discussed in further detail at your follow- up appointment, if applicable. Please Follow Up With: Oncology When: At previously scheduled appointment
--- NOTE | 2018-10-08 08:41 | PCM.DC.SUM ---
Discharge Date and Diagnosis - Problem List Patient Problems: Active and Suspected Problems Neutropenic fever (Acute) Date of Admission: 10/05/18 Date of Discharge: 10/08/18 - Primary Discharge Diagnosis Active and Suspected Problems Neutropenic fever (Acute) Hospital Course and Treatment Imaging Results: None Consults: General Surgery Operations: None Procedures: None Summary of Care Provided: Per HPI: The patient is a 53 year old F with a PMH of recently diagnosed right breast cancer on chemotherapy. She follows up with Dr. Haddad. She was admitted through the ED on 10/05/2018 with a complaint of fever of 1 day duration. She also had associated chills and noticed some redness around the area of the port. Patient has had 4 cycles of chemotherapy so far. She denied any nausea vomiting or headache, chest pain, abdominal pain, diarrhea or vomiting. Review of systems otherwise negative. On reviewing the ED, temperature was 99.5 Fahrenheit and pulse rate was 104 and blood pressure was 130/90. WBC was 1.4 and CBC was otherwise unremarkable. Chemistry was unremarkable with a lactic acid of 1.8. She has been admitted to be managed for neutropenic fever due to for probable port infection. Hospital Course: 1. Neutropenic fever secondary to chemotherapy for breast [id number] female who was recently diagnosed with right breast cancer, is on chemotherapy presented to her oncologist office with fever and was started on Augmentin. At that time a CBC was obtained and it came back with significant leukopenia and 0 neutrophils, she was directed to come to the ER because of her low-grade temperatures. She was admitted and started on meropenem and she was given multiple doses of Granix. Her white count on the day of discharge improved and her neutropenia resolved with a neutrophil count of 1.4. Also she has been afebrile for the last 48 hours and her blood cultures are preliminarily negative. General surgery was consulted to evaluate the port that had been newly placed, and they did not feel that there were any signs of infection. There is an area of slight erythema which is likely secondary to postsurgical inflammation and irritation. She would like to go home today and I discussed with her that she will need to continue her Augmentin and finish the prescription, which was discussed with her oncologist, and that if she continues to spike fevers or any change in her condition she is to come back to the hospital. She expressed understanding. 2. Her other medical diagnoses were evaluated and her home medications were continued where appropriate Patient Problems: Active and Suspected Problems Neutropenic fever (Acute) Objective: General: Alert, Oriented x3, Cooperative, No apparent distress HEENT: Atraumatic, PERRLA, EOMI, Normocephalic Oral: Moist Mucosa Neck: Supple, No JVD Lungs: Clear to auscultation, Normal air movement, No rhonchi, No wheeze, No rales Cardiovascular: Regular rate, Regular Rhythm, Normal S1, Normal S2, No murmurs Abdomen: Soft, Non Tender, Non-Distended, No Hepato-splenomegaly Extremities: No edema, Capillary Refill Less than 3 Seconds Skin: - - An area of erythema that is slight over the previous port incision. Neurological: Neuro grossly intact, Sensory exam intact to light touch and pain Psych/Mental Status: Normal Affect, Appropriate - Physical Exam Vital Signs Temp Pulse Resp BP Pulse Ox 98.8 F 104 H 18 132/76 H 98 10/08/18 03:33 10/08/18 03:33 10/08/18 03:33 10/08/18 03:33 10/08/18 03:33 Oxygen Delivery Method Room Air Weight: 123 lb 8 oz Body Mass Index (BMI) 20.5 Intake and Output for Last 24 Hours 10/06/18 10/07/18 10/08/18 23:59 23:59 23:59 Intake Total 3864 / 3864 6145 / 6145 1640 / 1640 Balance 3864 / 3864 6145 / 6145 1640 / 1640 Microbiology Past 72 Hours 10/05/18 14:10 Blood Culture - Preliminary Blood Culture (Wb) #2 - Anticubital Right No growth in 48 hours. 10/05/18 14:40 Blood Culture - Preliminary Blood Culture (Wb) - Port No growth in 48 hours. 10/05/18 14:45 Urine Culture - Final Urine, Clean Catch Mixed Gram Positive Organisms Laboratory Tests Past 24 Hrs 10/08/18 04:10 WBC 3.4 L RBC 5.25 Hgb 10.7 L Hct 34.1 L MCV 65.0 L MCH 20.4 L MCHC 31.4 L RDW Std Deviation 31.8 L RDW Coeff of Kimberly 13.8 Plt Count 87 L MPV 9.7 Neut % (Auto) Not Reportable Absolute Neuts (auto) 1.4 L Absolute Lymphs (auto) 1.65 Total Counted 100 Neutrophils % (Manual) 16 L Band Neutrophils % 15 H Lymphocytes % (Manual) 49 H Monocytes % (Manual) 7 Eosinophils % (Manual) 1 Metamyelocytes % 11 H Myelocytes % 1 H Diff Path Review May foll Dohle Bodies 1+ Platelet Estimate MOD DEC Polychromasia RARE Hypochromasia 2+ Anisocytosis 1+ Microcytosis 4+ POC Glucose 10/08/18 10/07/18 10/07/18 06:26 21:44 16:46 POC Glucose 128 H 114 H 223 H 10/07/18 11:46 POC Glucose 97 Discharge Activity: Return to Normal Activity, No Restrictions Call your doctor if you observe: Fever of 101 or Higher, Shortness of breath, Dizziness, Fainting spells, Swelling in the ankles, Chest pain, Increased palpitations (irregular heartbeat) Home Medications: Medications to take at Discharge metFORMIN HCl [Glucophage] 500 mg PO BIDCM 07/04/13 Entecavir 1 tab PO DAILY 10/05/18 Semaglutide [Ozempic] 1 mg SQ TU 10/05/18 Primary Care Physician: Brayden Sparrow DO [Primary Care Provider] - Please follow up with your Primary Care Physician in: 3-5 days Please Follow Up With: Oncology When: At previously scheduled appointment Disposition: Home Minutes spent on discharge:: 35 Patient Condition:: Stable Medical Necessity - Tobacco Use Smoking Status: Never smoker Tobacco Use: Non-smoker Meaningful Use Info Meaningful Use Diagnoses (Choose all that apply): None applicable Code Visit Inpatient E&M: 28123 Disch Hosp
[2018-10-08 09:46] VITALS: BP 142/87; PULSE 109; RESP 20; TEMP 36.8; O2SAT 98
[2018-10-08] MEDS: ENTECAVIR 1 MG PO (09:59)
[2018-10-08] MEDS: TBO-FILGRASTIM 300 MCG/0.5 ML ML SC (11:08)
[2018-10-08] MEDS: 0.9% NaCl Peripheral Flush Adult/Peds IV (11:08)
[2018-10-09 13:25] LABS: Pathologist Review Reviewed
[2018-10-09 13:30] LABS: Pathologist Review Reviewed
--- NOTE | 2018-10-09 14:42 | CASEMGMT ---
[facility] DC PHONE CALL DC DATE: 10/08/18 DC Disposition: Home Diagnosis on Discharge: Neutropenic fever LACE/STRATA: 12/31 Intro role of CM to patient via phone. She states no questions, reviewed medications, pt states she is doing well and has f/u appt with oncology already. Ana ABADN RN ACM
== END 2018-10-08 11:20 | disposition home or self-care (01) | DRG 810 ==
LOC: ED 14:18 → MS3 10-06 05:54
PROVIDERS: Admitting Provider Student in an Organized Health Care Education/Training Program; Emergency Provider Emergency Medicine; Family Provider Family Medicine; PCP Family Medicine; Referring Provider Student in an Organized Health Care Education/Training Program; Visit Provider Family Medicine
DX: D70.1 Agranulocytosis secondary to cancer chemotherapy (principal); T45.1X5A Adverse effect of antineoplastic and immunosuppressive drugs, initial encounter; R50.81 Fever presenting with conditions classified elsewhere; E11.9 Type 2 diabetes mellitus without complications; Z79.84 Long term (current) use of oral hypoglycemic drugs; C50.911 Malignant neoplasm of unspecified site of right female breast; Z86.19 Personal history of other infectious and parasitic diseases
CPT/HCPCS: 36415; 80048; 80053; 81001; 82962; 83605; 85025; 87040; 87086; 87088; 97802; 99285; J2185; J7030; J7050; A4216; J1447

== ENCOUNTER 2018-11-16 12:37 | Inpatient (IN) | payer BC, SELFPAY ==
[2018-10-05 16:13] VITALS: BMI 20.5
[2018-11-16] VITALS (13 sets, daily range): BP systolic 82–124; BP diastolic 46–70; PULSE 107–135; RESP 17–24; TEMP 36.9–40.2; O2SAT 96–99; BMI 20.1
--- NOTE | 2018-11-16 13:03 | RAD_ITS ---
STUDY: X-RAY CHEST REASON FOR EXAM: Female, 53 years old. Fever. History of breast cancer. TECHNIQUE: PA and lateral views of the chest. COMPARISON: None. FINDINGS: A left-sided jack catheter is in situ with the tip at the junction of the left brachiocephalic vein and superior vena cava. EKG electrodes are seen. The lungs are clear and expanded. There is no demonstrated pleural abnormality. Normal size heart. Normal mediastinum and homa. Normal visualized pulmonary arteries. Normal visualized aortic arch and descending thoracic aorta. Normal visualized thoracic spine. Normal visualized ribs, clavicles, and shoulders. 5.2 mm rounded calcification in the right upper quadrant. This may lie within the upper pole of the kidney. RAD/Chest PA and Lateral IMPRESSION: No acute abnormality is seen. Electronically Signed: Anibal Hinkle, at 15:18 EDT , Service support ,
--- NOTE | 2018-11-16 13:04 | EKG12_ITS ---
Test Reason : FEVER Blood Pressure : / mmHG Vent. Rate : 129 BPM Atrial Rate : 129 BPM P-R Int : 120 ms QRS Dur : 076 ms QT Int : 328 ms P-R-T Axes : 039 038 023 degrees QTc Int : 480 ms Sinus tachycardia Otherwise normal ECG Confirmed by KIET COHEN, SABINO ([id number]), editorial cartoonist JOSEPH SALINAS ([id number]) on 11/17/2018 1:21:31 PM Referred By: AKUA Confirmed By:MAYRA SANTA MD
[2018-11-16] MEDS: Acetaminophen 500 MG Tablet 1000 MG PO (14:07)
[2018-11-16] MEDS: 0.9% Normal Saline 1,000 ML 999 ML IV (14:07)
[2018-11-16] MEDS: 0.9% Normal Saline 1,000 ML 150 ML IV (14:08)
[2018-11-16 14:19] LABS: Absolute Lymphocyte Count 0.14 X10^3/uL (0.83-4.51); Basophil# 0.01 X10^3/uL; Basophil% 4.8 % (0-1); Hemoglobin 8.4 g/dL (12.0-15.0); Lymphocyte # 0.14 X10^3/ul (4.0); Lymphocyte % 66.7 % (19-41); Mean Corp Hgb Conc 32.3 g/dL (32-36); Mean Corpuscular Hgb 20.4 pg (27.0-32.0); Mean Corpuscular Volume 63.1 fL (81-99); Monocyte# 0.02 X10^3/uL; Monocyte% 9.5 % (0-10); NRBC Flagged by Analyzer 0 % (0-5); Neutrophil # 0.01 X10^3/uL (2.7-7.7); Neutrophil % 4.7 % (47-70); POSITIVE COUNT YES; POSITIVE DIFFERENTIAL YES; POSITIVE MORPHOLOGY YES; Platelet Count 94 K/mm3 (150-450); RBC Distribution Width CV 17.4 % (11.6-14.6); Red Blood Count 4.12 M/mm3 (4.2-5.4); White Blood Count 0.2 K/mm3 (4.4-11.0)
[2018-11-16 14:20] LABS: International Normalized Ratio 1.3; Prothrombin Time (Protime)PT. 15.8 SECONDS (11.7-14.9)
[2018-11-16 14:22] LABS: Partial Thromboplast Time 44.8 Seconds (24.1-36.2)
[2018-11-16 14:29] LABS: ALB/GLOB Ratio 0.7 RATIO (0.9-2.4); AST(SGOT) 17 U/L (15-37); Alanine Aminotransfer ALT/SGPT 35 U/L (13-56); Albumin, Serum 2.7 g/dL (3.2-5.0); Alkaline Phosphatase 83 U/L (45-117); Anion Gap 8 (5-15); BUN 20 mg/dL (7-18); BUN/Creat Ratio 19.4 RATIO (10-20); Calcium,Total 8.3 mg/dL (8.5-10.1); Chloride 102 mmol/L (98-107); Creatinine, Serum 1.03 mg/dL (0.55-1.02); EST Glomerular Filtration Rate 59 mL/min (>60); Est Glom Filt Rate - Afr Amer 72 mL/min (>60); Globulin 3.9 g/dL (2.2-4.2); Glucose 217 mg/dL (74-106); Magnesium 1.9 mg/dL (1.6-2.6); Phosphorus 1.5 mg/dL (2.5-4.9); Potassium 3.3 mmol/L (3.5-5.1); Protein, Total 6.6 g/dL (6.4-8.2); Sodium Level 133 mmol/L (136-145)
[2018-11-16 14:46] LABS: Differential Indicated SCAN CRITERIA MET
[2018-11-16 14:49] LABS: Mucous, Urine 0 SEEN /hpf (<or=2+); Red Blood Cells-Urine 0 SEEN /hpf (0-5)
[2018-11-16 14:56] LABS: Color, Urine Yellow (Yellow); Glucose, Dipstick Normal (Normal); Ketone-Dipstick 50 mg/dl (Negative); Leukocyte Esterase-Dipstick 100 /ul (Negative); Nitrite-Dipstick Positive (Negative); Occult Blood-Urine 50 /ul (Negative); Protein-Dipstick 100 mg/dl (Negative); Urine Bilirubin Dipstick Negative (Negative); Urine Clarity Sl. Cloudy (Clear); Urine Urobilinogen Normal (Normal)
[2018-11-16 14:57] LABS: Anisocytosis 1+; Hypochromasia 2+; Microcytosis 2+; Ovalocyte 1+; Platelet Estimate MOD DEC (ADEQ); Tear Drop Cell RARE
[2018-11-16 15:05] LABS: Bacteria 2+ /hpf (None Seen); Squamous Epithelial Cells - UA 0-5 SEEN /hpf (5-10); White Blood Cells 0-5 SEEN /hpf (0-5)
--- NOTE | 2018-11-16 16:01 | ED.DCSUM_ITS ---
- ER Visit Summary Date of Service: 11/16/18 Chief Complaint: Neutropenic fever History of Present Illness: The patient is a 53 F there is a history of breast cancer and finished her fourth cycle of chemotherapy last . Tuesday she began to have chills noted that today temperature at home was 107. He rechecked it it was 106. They see Dr. Castellanos for oncology. She does have a left chest port which she states has not been bothering her. Last had Tylenol at 8 PM last night. She denies any cough she denies any urinary symptoms. No headache. No back pain. She denies any vomiting or diarrhea but does endorse nausea. No chest pain. Physical Examination: Oral temperature 104.4 heart rate 132 respirations are 17 pulse ox 96% on room air blood pressure 120/61 Gen: Well-nourished well-developed Head: Normocephalic atraumatic Eyes: Perrl EOMI ENT: TMs clear no rhinorrhea moist mucous membranes Neck: Supple no lymphadenopathy no JVD nontender CVS: Regular rate rhythm no murmurs normal S1-S2 Respiratory: No distress clear to auscultation bilaterally chest nontender left chest port site without erythema or tenderness or swelling Abdomen: Soft nontender nondistended normal bowel sounds no masses Back: Nontender Extremity: Nontender no edema Skin: Normal color no rash Neuro: alert orientated ?3 CN II-XII intact normal strength sensation Psych: Normal affect normal mood Test Results: White count 0.2. Hemoglobin 8.4. Platelets are 94. Creatinine 1.03 glucose 217. Potassium 3.3. INR 1.3 urinalysis positive nitrates 2+ bacteria sent for culture. Blood cultures obtained. Lactic acid is 1. Chest x-ray Emergency Department Course and Treatment: Initially received meropenem and IV fluids as well as Tylenol. Our plan is admission to the hospital. Impression: 1. Neutropenic fever 2. Pancytopenia 3. Sepsis 4. UTI This note was generated with [employer] dictation software. It may contain incorrect words, spelling, and punctuation that were not noted in review of the chart prior to signing
[2018-11-16] MEDS: Ceftriaxone 1 GM/50 ML BAG IV (16:18)
--- NOTE | 2018-11-16 16:56 | CASEMGMT ---
RN CM Assessment Introduced role of RN CM to patient and patient Saumya Rhodes at bedside.? Patient is currently resting and information obtained from her . ?Care providers, pharmacy, and demographics verified. Presentation: Chills, Fever. H/o Breast CA, finished fourth cycle of Chemo last . Admit Dx: Neutropenic Fever, UTI, Sepsis Re-Admit: No. Inpt 10/05-10/08/18 for Neutropenic Fever Barriers/Issues: None PCP: Brayden Sparrow Specialists: Onc- Dr Recinos, Surgeon- Dr Ahumada in [place]. Preferred Pharmacy: [facility] Insurance: [employer] Rx Benefit: Yes? LNOK: Saumya Rhodes LW/HPOA: None, Declines offered information/services on this admission. Aware if changes their mind to notify staff. Living Arrangements:?Lives with in a 2 story home, Bedroom on . 2 steps to enter home. ADL?s: Independent with ambulation and ADLs Transportation: Patient does drive but per has been driving during since she has been ill. DME: None HHC: None SNF: None Goal: Home, states current needs of treating patient in the hospital but does not think will have any additional needs at this time upon DC. Denies any concerns, issues or questions with DC planning at this time. Aware CM remains available for any emerging needs. DC PLAN: Home with no anticipated needs identified at this time. AJAY Davies
--- NOTE | 2018-11-16 18:48 | HP.PCM_ITS ---
Problem List (1) Neutropenic fever Status: Acute (2) UTI (urinary tract infection) Status: Acute History of Present Illness Date of Admission: 11/16/18 Chief Complaint: Fever The patient is a 53 year old F with a PMH as below who presents with neutropenic fever 7 days after chemotherapy. She had a similar episode in early September. She has been getting Neulasta with every chemotherapy injection and it does daniele ear that she has a delayed reaction to the Neulasta. She states that she started feeling bad around Tuesday but it was today that when she took her temperature it was 107 at home, and your temperature was then obtained at home as well and that was 105. They called the oncologist office and they recommended coming straight to the ER. In the ER she was found to have a white blood cell count of 0.2 with an absolute neutrophil count of 0. UA was also obtained which had 100 leukocyte esterase 2+ bacteria and positive nitrites. She was given a dose of meropenem and Rocephin in the ER. She is also found to be hypophosphatemic and hypokalemic as well as anemic Past Medical History Allergies No Known Allergies Allergy (Verified 11/16/18 12:38) Home Medications: Ambulatory Orders Medication Instructions Recorded metFORMIN HCl [Glucophage] 500 mg PO BID 07/04/13 Entecavir 1 tab PO DAILY 10/05/18 Semaglutide [Ozempic] 1 mg SQ TU 10/05/18 Acetaminophen [Tylenol Extra 1,000 mg PO Q6H PRN PRN 11/16/18 Strength] Surgical History: - - chemotherapy port placement in September 2018 Psychiatric History: No pertinent psych hx Smoking Status: Never smoker Alcohol: None Drugs: None - *Family History Maternal History Items: No pertinent history Paternal History Items: No pertinent history Review of Systems Constitutional: Reports: Fever, Malaise, Weakness HEENT: Denies: Head Aches, Sinus Congestion, Sinus Drainage Cardiovascular: Denies: Chest Pain, Palpitations Respiratory: Denies: Cough, Shortness of breath at rest, Sputum production Gastrointestinal: Denies: Abdominal Pain, Nausea, Vomiting Genitourinary: Denies: Dysuria Musculoskeletal: Denies: Joint Pain, Joint Tenderness Skin: Denies: Rash, Wounds Neurological: Denies: Numbness, Tingling, Focal weakness Psychiatric: Denies: Anxiety, Depression Hematologic/ Lymphatic: Denies: Easy Bruising, Easy Bleeding VTE Information - Inpt Only VTE Present on Admission: Yes Patient Problems: Active and Suspected Problems UTI (urinary tract infection) (Acute) - Physical Exam General: Alert, Oriented x3, Cooperative, No apparent distress HEENT: Atraumatic, PERRLA, EOMI, Normocephalic Oral: Dry Mucosa Neck: Supple, No JVD Lungs: Clear to auscultation, Normal air movement, No rhonchi, No wheeze, No rales Cardiovascular: Regular rate, Regular Rhythm, Normal S1, Normal S2, No murmurs Abdomen: Soft, Non Tender, Non-Distended, No Hepato-splenomegaly Extremities: No edema, Capillary Refill Less than 3 Seconds Skin: No rashes, No breakdown, - - Port in her left chest looks good Neurological: Neuro grossly intact, Sensory exam intact to light touch and pain Psych/Mental Status: Normal Affect, Appropriate Vital Signs Temp Pulse Resp BP Pulse Ox 99.0 F 107 H 18 99/53 L 96 11/16/18 17:32 11/16/18 17:48 11/16/18 17:32 11/16/18 17:32 11/16/18 17:32 Oxygen Delivery Method Room Air Weight: 121 lb Body Mass Index (BMI) 20.1 Intake and Output for Last 24 Hours 11/14/18 11/15/18 11/16/18 23:59 23:59 23:59 Intake Total 1495 / 1495 Balance 1495 / 1495 Laboratory Tests Past 24 Hrs 11/16/18 11/16/18 11/16/18 13:45 13:45 13:45 WBC 0.2 L* RBC 4.12 L Hgb 8.4 L Hct 26.0 L MCV 63.1 L MCH 20.4 L MCHC 32.3 RDW Std Deviation 37.0 RDW Coeff of [place] 17.4 H Plt Count 94 L MPV TNP Immature Gran % (Auto) 14.300 H Neut % (Auto) 4.7 L Lymph % (Auto) 66.7 H [place] % (Auto) 9.5 Eos % (Auto) 0.0 Baso % (Auto) 4.8 H Absolute Neuts (auto) 0.0 L Absolute Lymphs (auto) 0.14 L Nucleated RBC % 0 Diff Path Review May foll Platelet Estimate MOD DEC Hypochromasia 2+ Anisocytosis 1+ Microcytosis 2+ Tear Drop Cells RARE Ovalocytes 1+ PT 15.8 H INR 1.3 APTT 44.8 H Sodium 133 L Potassium 3.3 L Chloride 102 Carbon Dioxide 23.0 Anion Gap 8 BUN 20 H Creatinine 1.03 H Estim Creat Clear Calc 54.10 Est GFR (MDRD) Af Amer 72 Est GFR (MDRD) Non-Af 59 L BUN/Creatinine Ratio 19.4 Glucose 217 H Lactic Acid Calcium 8.3 L Phosphorus 1.5 L Magnesium 1.9 Total Bilirubin 0.60 AST 17 ALT 35 Alkaline Phosphatase 83 Total Protein 6.6 Albumin 2.7 L Globulin 3.9 Albumin/Globulin Ratio 0.7 L Urine Color Urine Clarity Urine pH Ur Specific [place] Urine Protein Urine Glucose (UA) Urine Ketones Urine Occult Blood Urine Nitrite Urine Bilirubin Urine Urobilinogen Ur Leukocyte Esterase Urine RBC Urine WBC Ur Squamous Epith Cells Urine Bacteria Urine Mucus 11/16/18 11/16/18 13:45 14:32 WBC RBC Hgb Hct MCV MCH MCHC RDW Std Deviation RDW Coeff of [place] Plt Count MPV Immature Gran % (Auto) Neut % (Auto) Lymph % (Auto) [place] % (Auto) Eos % (Auto) Baso % (Auto) Absolute Neuts (auto) Absolute Lymphs (auto) Nucleated RBC % Diff Path Review Platelet Estimate Hypochromasia Anisocytosis Microcytosis Tear Drop Cells Ovalocytes PT INR APTT Sodium Potassium Chloride Carbon Dioxide Anion Gap BUN Creatinine Estim Creat Clear Calc Est GFR (MDRD) Af Amer Est GFR (MDRD) Non-Af BUN/Creatinine Ratio Glucose Lactic Acid 1.0 Calcium Phosphorus Magnesium Total Bilirubin AST ALT Alkaline Phosphatase Total Protein Albumin Globulin Albumin/Globulin Ratio Urine Color Yellow Urine Clarity Sl. Cloudy Urine pH 6.0 Ur Specific [place] 1.010 Urine Protein 100 H Urine Glucose (UA) Normal Urine Ketones 50 H Urine Occult Blood 50 H Urine Nitrite Positive H Urine Bilirubin Negative Urine Urobilinogen Normal Ur Leukocyte Esterase 100 H Urine RBC 0 SEEN Urine WBC 0-5 SEEN Ur Squamous Epith Cells 0-5 SEEN Urine Bacteria 2+ Urine Mucus 0 SEEN Assessment/Plan All Active Problems Neutropenic fever (Acute) UTI (urinary tract infection) (Acute) 1. Neutropenic fever secondary to chemotherapy for history of breast cancer/sepsis secondary to UTI -She had a dose of chemotherapy about a week ago and she also received a dose of Neulasta -Consult to oncology -Granix was given today -Blood cultures and urine cultures are pending -Neutropenia secondary to chemotherapy -Continue with imipenem for prophylaxis -Absolute neutrophil count is 0.0 with a total WBC of 0.2 2. DM 2 -We will hold metformin and Ozempic -We will continue with sliding scale insulin Accu-Cheks 3. hypokalemia and hypophosphatemia -Will replace with 30 mmol of K-Phos -Recheck potassium and phosphorus in the morning -Magnesium was normal DVT: Lovenox Code Visit Inpatient E&M: 73292 Init Hosp L3
[2018-11-16] MEDS: Acetaminophen 325 MG Tablet 650 MG PO (20:10)
[2018-11-16] MEDS: 0.9% Normal Saline 1,000 ML 100 ML IV (20:12)
[2018-11-16] MEDS: Insulin Lispro 100 UNIT/ML INSULN.PEN SC (21:37)
[2018-11-16] MEDS: TBO-FILGRASTIM 300 MCG/0.5 ML ML SC (21:38)
[2018-11-16] MEDS: 0.9% NaCl IVPB Med Flush (250 mL) 15 ML IV (21:43)
[2018-11-16 21:56] LABS: Bedside Glucose 224 mg/dL (70-110)
--- NOTE | 2018-11-16 22:14 | SEPSISNOTE ---
Sepsis Note - Physical Exam/Vitals Subjective: Patient noted to have systolic blood pressure of less than 90 after receiving thousand 900 mL's normal saline within the last 6 hours. Originally patient was diagnosed with neutropenic fever. Objective: Chest X-Ray 11/16/18 13:03 IMPRESSION: No acute abnormality is seen. Electronically Signed: Anibal Hinkle, at 15:18 EDT , Service support , Temp Pulse Resp BP Pulse Ox 100.4 F H 120 H 22 H 82/46 L 98 11/16/18 21:47 11/16/18 22:04 11/16/18 21:47 11/16/18 22:04 11/16/18 21:47 11/16/18 11/16/18 11/16/18 21:34 14:32 13:45 WBC RBC Hgb Hct MCV MCH MCHC RDW Std Deviation RDW Coeff of Kimber[place] Plt Count MPV Immature Gran % (Auto) Neut % (Auto) Lymph % (Auto) [place] % (Auto) Eos % (Auto) Baso % (Auto) Absolute Neuts (auto) Absolute Lymphs (auto) Nucleated RBC % Diff Path Review Platelet Estimate Hypochromasia Anisocytosis Microcytosis Tear Drop Cells Ovalocytes PT INR APTT Sodium Potassium Chloride Carbon Dioxide Anion Gap BUN Creatinine Estim Creat Clear Calc Est GFR (MDRD) Af Amer Est GFR (MDRD) Non-Af BUN/Creatinine Ratio Glucose Lactic Acid 1.0 Calcium Phosphorus Magnesium Total Bilirubin AST ALT Alkaline Phosphatase Total Protein Albumin Globulin Albumin/Globulin Ratio Urine Color Yellow Urine Clarity Sl. Cloudy Urine pH 6.0 Ur Specific [place] 1.010 Urine Protein 100 H Urine Glucose (UA) Normal Urine Ketones 50 H Urine Occult Blood 50 H Urine Nitrite Positive H Urine Bilirubin Negative Urine Urobilinogen Normal Ur Leukocyte Esterase 100 H Urine RBC 0 SEEN Urine WBC 0-5 SEEN Ur Squamous Epith Cells 0-5 SEEN Urine Bacteria 2+ Urine Mucus 0 SEEN POC Glucose 224 H 11/16/18 11/16/18 11/16/18 13:45 13:45 13:45 WBC 0.2 L* RBC 4.12 L Hgb 8.4 L Hct 26.0 L MCV 63.1 L MCH 20.4 L MCHC 32.3 RDW Std Deviation 37.0 RDW Coeff of Kimber[place] 17.4 H Plt Count 94 L MPV TNP Immature Gran % (Auto) 14.300 H Neut % (Auto) 4.7 L Lymph % (Auto) 66.7 H [place] % (Auto) 9.5 Eos % (Auto) 0.0 Baso % (Auto) 4.8 H Absolute Neuts (auto) 0.0 L Absolute Lymphs (auto) 0.14 L Nucleated RBC % 0 Diff Path Review May foll Platelet Estimate MOD DEC Hypochromasia 2+ Anisocytosis 1+ Microcytosis 2+ Tear Drop Cells RARE Ovalocytes 1+ PT 15.8 H INR 1.3 APTT 44.8 H Sodium 133 L Potassium 3.3 L Chloride 102 Carbon Dioxide 23.0 Anion Gap 8 BUN 20 H Creatinine 1.03 H Estim Creat Clear Calc 54.10 Est GFR (MDRD) Af Amer 72 Est GFR (MDRD) Non-Af 59 L BUN/Creatinine Ratio 19.4 Glucose 217 H Lactic Acid Calcium 8.3 L Phosphorus 1.5 L Magnesium 1.9 Total Bilirubin 0.60 AST 17 ALT 35 Alkaline Phosphatase 83 Total Protein 6.6 Albumin 2.7 L Globulin 3.9 Albumin/Globulin Ratio 0.7 L Urine Color Urine Clarity Urine pH Ur Specific [place] Urine Protein Urine Glucose (UA) Urine Ketones Urine Occult Blood Urine Nitrite Urine Bilirubin Urine Urobilinogen Ur Leukocyte Esterase Urine RBC Urine WBC Ur Squamous Epith Cells Urine Bacteria Urine Mucus POC Glucose General: Alert, Oriented x3, Cooperative Lungs: Clear to auscultation, No rhonchi, No wheeze, No rales, Tachypneic Cardiovascular: Regular rate, No murmurs, Tachycardic Capillary Refill: <3 seconds Peripheral Pulses: Normal Skin Color: [place] - Assessment/Plan Assessment and Plan Septic shock secondary to probable UTI Neutropenic fever Patient has a fever of 102.9; tachycardia; tachypnea and systolic blood pressure of 82 Blood culture has already been obtained Urine culture is pending We will get lactic acid and trend. Continue Merrem. Due to neutropenic fever with severe leukopenia we will add vancomycin We will give additional 500 mils bolus of normal saline. Of note patient has met requirements of 30 MS kilogram of IV fluids. We will transfer to intensive care unit and start patient on levophed. Of note patient has portacath. Patient has history of right breast cancer and has received chemotherapy. [employer] Operator consult.
--- NOTE | 2018-11-16 22:15 | NURSING ---
Pt transferred to ICU for hypotension/sepsis. Report given to Rayne BLACKMAN. in room and notified of transfer.
[2018-11-16 23:03] LABS: Lactic Acid 1.3 mmol/L (0.4-2.0)
[2018-11-16] MEDS: 0.9% NaCl Peripheral Flush Adult/Peds IV (23:06)
--- NOTE | 2018-11-16 23:24 | PCM.RX.CS ---
Consult Pharmacy has been consulted to manage selected antiobiotic: Vancomycin Type of Consult: New start Suspected Infection: Other Prior Doses of Antibiotics Received/Current Regimen: Medications Vancomycin HCl 500 mg in 100 mls @ 100 mls/hr IV Q12H DEXTER Vancomycin HCl 1,250 mg/ (Sodium Chloride) 275 mls @ 167 mls/hr IV X1 ONE Stop: 11/17/18 00:38 Last Admin: 11/16/18 23:06 Dose: 167 mls/hr Labs: Sodium 133 mmol/L (136-145) L 11/16/18 13:45 Potassium 3.3 mmol/L (3.5-5.1) L 11/16/18 13:45 Chloride 102 mmol/L (98-107) 11/16/18 13:45 Carbon Dioxide 23.0 mmol/L (21.0-32.0) 11/16/18 13:45 Anion Gap 8 (5-15) 11/16/18 13:45 BUN 20 mg/dL (7-18) H 11/16/18 13:45 Creatinine 1.03 mg/dL (0.55-1.02) H 11/16/18 13:45 Est GFR (MDRD) Af Amer 72 mL/min (>60) 11/16/18 13:45 Est GFR (MDRD) Non-Af 59 mL/min (>60) L 11/16/18 13:45 BUN/Creatinine Ratio 19.4 RATIO (10-20) 11/16/18 13:45 Glucose 217 mg/dL (74-106) H 11/16/18 13:45 Weight used for dosin.9 kg Estimated Creatinine Clearance: 54 Goal Trough: 15-20 mcg/mL Pharmacy Plan for Drug Dosing: Loading dose of 1250mg was given. Will continue with 500mg q12h and draw a trough level prior to fourth total dose. Pharmacy Service will continue to monitor and adjust dosing as required. Follow-Up Labs: Trough Vancomycin Labs to be done on [date and time ordered]: 11/18/18 @1030
[2018-11-17] VITALS (39 sets, daily range): BP systolic 83–153; BP diastolic 49–89; PULSE 91–124; RESP 15–26; TEMP 36.5–39.4; O2SAT 94–100
--- NOTE | 2018-11-17 00:39 | PCM.PN.BLA ---
Progress Note With blood culture showing gram-negative rods and with patient having an abnormal urinalysis most likely her septic shock is from a gram-negative organism that most probably is susceptible to meropenem. Will discontinue vancomycin after first dose has been infused.
[2018-11-17 04:42] LABS: Absolute Lymphocyte Count 0.11 X10^3/uL (0.83-4.51); Anion Gap 11 (5-15); BUN 18 mg/dL (7-18); Calcium,Total 7.2 mg/dL (8.5-10.1); Chloride 113 mmol/L (98-107); EST Glomerular Filtration Rate 69 mL/min (>60); Est Glom Filt Rate - Afr Amer 84 mL/min (>60); Estimated Creatinine Clearance 61.92 ml/min; Glucose 219 mg/dL (74-106); Hematocrit 22.2 % (37-47); Hemoglobin 6.9 g/dL (12.0-15.0); Lymphocyte # 0.11 X10^3/ul (4.0); Lymphocyte % 73.3 % (19-41); Mean Corp Hgb Conc 31.1 g/dL (32-36); Mean Corpuscular Hgb 19.9 pg (27.0-32.0); Monocyte# 0.01 X10^3/uL; Monocyte% 6.7 % (0-10); NRBC Flagged by Analyzer 0 % (0-5); Neutrophil # 0.03 X10^3/uL (2.7-7.7); POSITIVE COUNT YES; POSITIVE DIFFERENTIAL YES; POSITIVE MORPHOLOGY YES; Potassium 3.8 mmol/L (3.5-5.1); RBC Distribution Width CV 17.8 % (11.6-14.6); RBC Distribution Width SD 38.1 fl (35.1-43.9); Red Blood Count 3.47 M/mm3 (4.2-5.4); Sodium Level 142 mmol/L (136-145)
[2018-11-17 04:50] LABS: Phosphorus 4.4 mg/dL (2.5-4.9)
[2018-11-17 05:08] LABS: Platelet Count 40 K/mm3 (150-450); White Blood Count 0.2 K/mm3 (4.4-11.0)
[2018-11-17 05:09] LABS: Differential Comment SCANNED; Differential Indicated SCAN CRITERIA MET; Hypochromasia 3+; Microcytosis 3+; Ovalocyte 1+; Schistocytes 1+
[2018-11-17] MEDS: 0.9% Normal Saline 1,000 ML 100 ML IV ×2 (05:43→15:56)
[2018-11-17 06:36] LABS: Bedside Glucose 142 mg/dL (70-110)
--- NOTE | 2018-11-17 07:51 | CON.PCM_ITS ---
Problem List (1) Breast cancer Status: Acute Qualifiers: Patient sex: female (2) Immunosuppression due to drug therapy Status: Acute (3) Septic shock Status: Acute (4) Neutropenic fever Status: Acute (5) UTI (urinary tract infection) Status: Acute Reason for Consult Date of Consultation: 11/17/18 Reason for Consultation: Septic shock History of Present Illness: The patient is a 53 year old F, with past medical history listed below, who presented [facility] on 11/16/2018 secondary to fevers. Patient reportedly has current breast cancer and recently finished her fourth cycle of chemotherapy last . Patient's noted a temperature of 107 ?F and called the oncologist. Patient was asked to come in for evaluation. Patient denies any cough, headache, abdominal pain, emesis or melena. Patient did report some nausea, but had attributed this to her chemotherapy. Patient denied any urinary type symptoms. In the ER, patient was noted to be febrile, tachycardic, but normotensive and 96% on room air. Laboratory work-up did show pancytopenia, slightly elevated creatinine, positive UA and a lactate of 1. Chest x-ray was unremarkable. Patient was placed on broad-spectrum gram-negative coverage and admitted for further evaluation. While on the floor, patient was noted to be hypotensive. Patient did receive fluid boluses without improvement. Patient has persisted and fever throughout her hospitalization. Patient was transferred to the intensive care unit and was initiated on pressor therapy transiently. This was discontinued at approximately 230 this morning. Patient overall feels subjectively improved, but does report generalized fatigue. No sore joints or symptoms of focal signs of infection are reported. Past Medical History Allergies No Known Allergies Allergy (Verified 11/16/18 12:38) Home Medications: Ambulatory Orders Medication Instructions Recorded metFORMIN HCl [Glucophage] 500 mg PO BIDCM 07/04/13 Entecavir 1 tab PO DAILY 10/05/18 Semaglutide [Ozempic] 1 mg SQ TU 10/05/18 Acetaminophen [Tylenol Extra 1,000 mg PO Q6H PRN PRN 11/16/18 Strength] Surgical History: - - chemotherapy port placement in September 2018 Psychiatric History: No pertinent psych hx Smoking Status: Never smoker Alcohol: None Drugs: None - *Family History Maternal History Items: No pertinent history Paternal History Items: No pertinent history Review of Systems Constitutional: Reports: Anorexia, Fever, Weakness, Fatigue. Denies: Night Sweats Eyes: Denies: Blurred vision, Double vision, Eyelid Inflammation, Pain, Redness HEENT: Reports: Difficulty Swallowing. Denies: Difficulty Hearing, Nasal bleeding, Nasal Congestion, Sinus Drainage, Sore Throat Cardiovascular: Denies: Chest Pain, Chest Tightness, Orthopnea, Palpitations Respiratory: Denies: Cough, Pleuritic Pain, Shortness of breath at rest, Sputum production, Wheezing Gastrointestinal: Reports: Nausea. Denies: Abdominal Pain, Diarrhea, Vomiting Genitourinary: Denies: Dysuria, Frequency, Hematuria, Retention Gynecological: Denies: Breast symptoms, Excessively long or heavy periods Musculoskeletal: Reports: Joint stiffness. Denies: Foot Pain, Joint Tenderness Skin: Denies: Dryness, Pruritis, Rash Neurological: Denies: Balance problems, Change in Speech, Focal weakness Psychiatric: Denies: Anxiety, Homicidal Ideations, Suicidal Ideations Endocrine: Reports: Heat/ Cold Intolerance. Denies: Polyuria Hematologic/ Lymphatic: Reports: Anemia, Easy Bruising. Denies: Adenopathy, Petechiae Patient Problems: Active and Suspected Problems Breast cancer (Acute) Immunosuppression due to drug therapy (Acute) Septic shock (Acute) UTI (urinary tract infection) (Acute) Objective: Chest x-ray was personally reviewed and is unremarkable. - Physical Exam General: Alert, Oriented x3, Cooperative HEENT: Atraumatic, PERRLA, EOMI, Normocephalic, - - Alopecia Oral: Moist Mucosa, No Gingival or Mucosal Lesions/ Ulcerations Neck: Supple, No JVD, No Nodes, Trachea Midline Lungs: Clear to auscultation, Normal air movement, No rhonchi, No wheeze, No rales Cardiovascular: Normal S1, Normal S2, No murmurs, No rub noted, No Gallop, Tachycardic Abdomen: Bowel Sounds Present, Soft, Non Tender, Non-Distended Extremities: No clubbing, No cyanosis, No edema Skin: No rashes, No breakdown Musculoskeletal: No Tenderness to Palpation of Joints or Extremities Lymphatic: No Cervical, Supraclavicular, or Inguinal Adenopathy Neurological: Cranial nerves II-XII grossly intact, Neuro grossly intact, Motor Exam 5/5 strength throughout Psych/Mental Status: Alert and oriented to time, place, person, mood and affect Vital Signs Temp Pulse Resp BP Pulse Ox 36.5 C L 107 H 17 120/76 99 11/17/18 04:00 11/17/18 06:00 11/17/18 06:00 11/17/18 06:00 11/17/18 06:00 Oxygen Delivery Method Room Air Weight: 55.2 kg Body Mass Index (BMI) 20.1 Intake and Output for Last 24 Hours 11/15/18 11/16/18 11/17/18 23:59 23:59 23:59 Intake Total 2630.52 / 3202.84 1734.12 / 1734.12 Output Total 275 / 275 350 / 350 Balance 2355.52 / 2927.84 1384.12 / 1384.12 Microbiology Past 72 Hours 11/16/18 14:35 Blood Culture - Preliminary Blood Culture (Wb) - Anticubital Left GNR lactose cmm inspector 11/16/18 13:45 Blood Culture - Preliminary Blood Culture (Wb) #2 - Other GNR lactose cmm inspector Laboratory Tests Past 24 Hrs 11/16/18 11/16/18 11/16/18 13:45 13:45 13:45 WBC 0.2 L* RBC 4.12 L Hgb 8.4 L Hct 26.0 L MCV 63.1 L MCH 20.4 L MCHC 32.3 RDW Std Deviation 37.0 RDW Coeff of Kimberly 17.4 H Plt Count 94 L MPV TNP Immature Gran % (Auto) 14.300 H Neut % (Auto) 4.7 L Lymph % (Auto) 66.7 H [place] % (Auto) 9.5 Eos % (Auto) 0.0 Baso % (Auto) 4.8 H Absolute Neuts (auto) 0.0 L Absolute Lymphs (auto) 0.14 L Nucleated RBC % 0 Differential Comment Diff Path Review May foll Platelet Estimate MOD DEC Hypochromasia 2+ Anisocytosis 1+ Microcytosis 2+ Tear Drop Cells RARE Ovalocytes 1+ Schistocytes PT 15.8 H INR 1.3 APTT 44.8 H Sodium 133 L Potassium 3.3 L Chloride 102 Carbon Dioxide 23.0 Anion Gap 8 BUN 20 H Creatinine 1.03 H Estim Creat Clear Calc 54.10 Est GFR (MDRD) Af Amer 72 Est GFR (MDRD) Non-Af 59 L BUN/Creatinine Ratio 19.4 Glucose 217 H Lactic Acid Calcium 8.3 L Phosphorus 1.5 L Magnesium 1.9 Total Bilirubin 0.60 AST 17 ALT 35 Alkaline Phosphatase 83 Total Protein 6.6 Albumin 2.7 L Globulin 3.9 Albumin/Globulin Ratio 0.7 L Urine Color Urine Clarity Urine pH Ur Specific [place] Urine Protein Urine Glucose (UA) Urine Ketones Urine Occult Blood Urine Nitrite Urine Bilirubin Urine Urobilinogen Ur Leukocyte Esterase Urine RBC Urine WBC Ur Squamous Epith Cells Urine Bacteria Urine Mucus Blood Type Antibody Screen Crossmatch 11/16/18 11/16/18 11/16/18 13:45 14:32 22:30 WBC RBC Hgb Hct MCV MCH MCHC RDW Std Deviation RDW Coeff of [place] Plt Count MPV Immature Gran % (Auto) Neut % (Auto) Lymph % (Auto) [place] % (Auto) Eos % (Auto) Baso % (Auto) Absolute Neuts (auto) Absolute Lymphs (auto) Nucleated RBC % Differential Comment Diff Path Review Platelet Estimate Hypochromasia Anisocytosis Microcytosis Tear Drop Cells Ovalocytes Schistocytes PT INR APTT Sodium Potassium Chloride Carbon Dioxide Anion Gap BUN Creatinine Estim Creat Clear Calc Est GFR (MDRD) Af Amer Est GFR (MDRD) Non-Af BUN/Creatinine Ratio Glucose Lactic Acid 1.0 1.3 Calcium Phosphorus Magnesium Total Bilirubin AST ALT Alkaline Phosphatase Total Protein Albumin Globulin Albumin/Globulin Ratio Urine Color Yellow Urine Clarity Sl. Cloudy Urine pH 6.0 Ur Specific [place] 1.010 Urine Protein 100 H Urine Glucose (UA) Normal Urine Ketones 50 H Urine Occult Blood 50 H Urine Nitrite Positive H Urine Bilirubin Negative Urine Urobilinogen Normal Ur Leukocyte Esterase 100 H Urine RBC 0 SEEN Urine WBC 0-5 SEEN Ur Squamous Epith Cells 0-5 SEEN Urine Bacteria 2+ Urine Mucus 0 SEEN Blood Type Antibody Screen Crossmatch 11/17/18 11/17/18 11/17/18 04:05 04:05 04:05 WBC 0.2 L* RBC 3.47 L Hgb 6.9 L Hct 22.2 L MCV 64.0 L MCH 19.9 L MCHC 31.1 L RDW Std Deviation 38.1 RDW Coeff of [place] 17.8 H Plt Count 40 L* MPV Immature Gran % (Auto) 0.000 Neut % (Auto) 20.0 L Lymph % (Auto) 73.3 H [place] % (Auto) 6.7 Eos % (Auto) 0.0 Baso % (Auto) 0.0 Absolute Neuts (auto) 0.0 L Absolute Lymphs (auto) 0.11 L Nucleated RBC % 0 Differential Comment SCANNED Diff Path Review May foll Platelet Estimate Hypochromasia 3+ Anisocytosis Microcytosis 3+ Tear Drop Cells Ovalocytes 1+ Schistocytes 1+ PT INR APTT Sodium 142 Potassium 3.8 Chloride 113 H Carbon Dioxide 18.0 L Anion Gap 11 BUN 18 Creatinine 0.90 Estim Creat Clear Calc 61.92 Est GFR (MDRD) Af Amer 84 Est GFR (MDRD) Non-Af 69 BUN/Creatinine Ratio 20.0 Glucose 219 H Lactic Acid Calcium 7.2 L Phosphorus 4.4 Magnesium Total Bilirubin AST ALT Alkaline Phosphatase Total Protein Albumin Globulin Albumin/Globulin Ratio Urine Color Urine Clarity Urine pH Ur Specific [place] Urine Protein Urine Glucose (UA) Urine Ketones Urine Occult Blood Urine Nitrite Urine Bilirubin Urine Urobilinogen Ur Leukocyte Esterase Urine RBC Urine WBC Ur Squamous Epith Cells Urine Bacteria Urine Mucus Blood Type Antibody Screen Crossmatch 11/17/18 07:00 WBC RBC Hgb Hct MCV MCH MCHC RDW Std Deviation RDW Coeff of Kimber[place] Plt Count MPV Immature Gran % (Auto) Neut % (Auto) Lymph % (Auto) [place] % (Auto) Eos % (Auto) Baso % (Auto) Absolute Neuts (auto) Absolute Lymphs (auto) Nucleated RBC % Differential Comment Diff Path Review Platelet Estimate Hypochromasia Anisocytosis Microcytosis Tear Drop Cells Ovalocytes Schistocytes PT INR APTT Sodium Potassium Chloride Carbon Dioxide Anion Gap BUN Creatinine Estim Creat Clear Calc Est GFR (MDRD) Af Amer Est GFR (MDRD) Non-Af BUN/Creatinine Ratio Glucose Lactic Acid Calcium Phosphorus Magnesium Total Bilirubin AST ALT Alkaline Phosphatase Total Protein Albumin Globulin Albumin/Globulin Ratio Urine Color Urine Clarity Urine pH Ur Specific [place] Urine Protein Urine Glucose (UA) Urine Ketones Urine Occult Blood Urine Nitrite Urine Bilirubin Urine Urobilinogen Ur Leukocyte Esterase Urine RBC Urine WBC Ur Squamous Epith Cells Urine Bacteria Urine Mucus Blood Type Pending Antibody Screen Pending Crossmatch See Detail POC Glucose 11/17/18 11/16/18 06:29 21:34 POC Glucose 142 H 224 H Clinical Impression(s) from Imaging Studies Chest X-Ray 11/16/18 13:03 IMPRESSION: No acute abnormality is seen. Electronically Signed: Anibal Hinkle, at 15:18 EDT , Service support , Assessment/Plan Active and Suspected Problems Breast cancer (Acute) Immunosuppression due to drug therapy (Acute) Septic shock (Acute) UTI (urinary tract infection) (Acute) RECOMMENDATIONS: 1. Continue broad-spectrum antibiotics 2. Bolus with IV fluids as necessary 3. Consider oncology consult for G-CSF recommendations 4. Monitor intensive care through the day, possible transfer later today 5. Transfuse 1 unit of packed red blood cells IMPRESSIONS: 1. Septic shock secondary to probable gram-negative UTI Patient has gram-negative organisms growing in all blood cultures in less than 24 hours. Patient will be at risk for immune reconstitution complications if bacteremia cannot be cleared before immune response. Would monitor in the intensive care unit. Continue current antibiotics. Patient is doing well on room air, so fluid boluses may be an option moving forward. No other secondary source is apparent at this time. 2. Neutropenic fever with pancytopenia secondary to chemotherapy Patient with a T-max of 40.2 ?C. Blood pressure is marginal at this time. Patient does have gram negatives noted. Patient with known right-sided breast cancer. 3. Diabetes mellitus type 2/recent chemotherapy/hypokalemia/hypo-phospha temia/acute kidney injury Complicates care, management, recovery and prognosis. Variable p.o. intake, so would cover with sliding scale only. Repletion as indicated. Renal function is slightly improved. Anticipate prerenal etiology secondary to #1. Code Visit Inpatient E&M: 43140 Init Hosp L3
[2018-11-17] MEDS: Acetaminophen 325 MG Tablet 650 MG PO ×4 (08:13→22:41)
--- NOTE | 2018-11-17 08:36 | PCM.CONS.B ---
Problem List (1) Breast cancer Status: Chronic Qualifiers: Breast location: upper outer quadrant of breast Estrogen receptor status: negative Patient sex: female Laterality: right Qualified Code(s): C50.411 - Malignant neoplasm of upper-outer quadrant of right female breast; Z17.1 - Estrogen receptor negative status [ER-] (2) Septic shock Status: Acute (3) Pancytopenia with fever Status: Acute (4) Immunosuppression due to drug therapy Status: Acute (5) Hepatitis B carrier Status: Chronic - Consult Date of Consult: 11/17/[address] Escobar regarding patient with breast cancer status post chemotherapy present with negative sepsis from UTI. My final recommendation will be communicated to ICU team and also by electronic medical records - Reason for Consult istory of Present Illness Date of Admission: 11/16/18 Chief Complaint: Neutropenic fever; UTI The patient is a 53 year old F with a PMH as below who presents with neutropenic fever 7 days after fourth cycle of chemotherapy breast cancer-Adriamycin cyclophosphamide and Neulasta. 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 She started neoadjuvant chemotherapy 8 weeks ago in my office. She had a partial response so far. After her initial chemotherapy, she had neutropenic fever but no evidence of sepsis about a month ago. Patient also is a hepatitis B carrier currently on treatment for hepatitis B. She states that she started feeling bad around Tuesday but no fever. Her temperature the day of admission was 104. She presented to the ER to the ED yesterday with fever, chills and riders.. In the ER she was found to have a white blood cell count of 0.2 with an absolute neutrophil count of 0. UA was also obtained which had 100 leukocyte esterase 2+ bacteria and positive nitrites. She was given a dose of meropenem and Rocephin in the ER. She is also found to be hypophosphatemic and hypokalemic as well as anemic. She was not short of breath, no mental status changes, no evidence of bleeding or bruising. Her blood culture came back positive 2/2 and negative rods, and she become hypotensive overnight with fever of 103. She was transfer last evening to the ICU for treatment of sepsis. She was briefly on pressor and was off pressors this morning. She is currently on meropenem every 8 hours. Patient has noticed no diarrhea or stomatitis. No clinical bleeding or bruising from her IV sites. She denies hematuria. Past Medical History Allergies No Known Allergies Allergy (Verified 11/16/18 12:38) Home Medications: Ambulatory Orders Medication Instructions Recorded metFORMIN HCl [Glucophage] 500 mg PO BIDCM 07/04/13 Entecavir 1 tab PO DAILY 10/05/18 Semaglutide [Ozempic] 1 mg SQ TU 10/05/18 Acetaminophen [Tylenol Extra 1,000 mg PO Q6H PRN PRN 11/16/18 Strength] Surgical History: - - chemotherapy port placement in September 2018 Psychiatric History: No pertinent psych hx Smoking Status: Never smoker Alcohol: None Drugs: None - *Family History Maternal History Items: No pertinent history Paternal History Items: No pertinent history Review of Systems Constitutional: Reports: Fever, Malaise, Weakness HEENT: Denies: Head Aches, Sinus Congestion, Sinus Drainage Cardiovascular: Denies: Chest Pain, Palpitations Respiratory: Denies: Cough, Shortness of breath at rest, Sputum production Gastrointestinal: Denies: Abdominal Pain, Nausea, Vomiting Genitourinary: Denies: Dysuria Musculoskeletal: Denies: Joint Pain, Joint Tenderness Skin: Denies: Rash, Wounds Neurological: Denies: Numbness, Tingling, Focal weakness Psychiatric: Denies: Anxiety, Depression Hematologic/ Lymphatic: Denies: Easy Bruising, Easy Bleeding VTE Information - Inpt Only VTE Present on Admission: Yes Patient Problems: Active and Suspected Problems UTI (urinary tract infection) (Acute) Gram-negative sepsis (Acute) Pancytopenia secondary to chemotherapy and sepsis (Acute) Vital Signs - 24 hr Temp Pulse Resp BP BP Pulse Ox 11/17/18 06:00 107 H 17 120/76 99 11/17/18 05:00 97 17 91/61 99 11/17/18 04:00 97.7 F L 96 16 116/69 99 11/17/18 03:34 92 11/17/18 03:30 91 15 97/63 100 11/17/18 03:15 93 16 99/63 99 11/17/18 03:00 94 16 97/61 99 11/17/18 02:45 93 16 112/73 99 11/17/18 02:00 94 18 103/64 99 11/17/18 01:15 101 H 22 H 96/65 99 11/17/18 01:00 105 H 23 H 98/63 99 11/17/18 00:45 104 H 20 H 94/61 99 11/17/18 00:30 104 H 21 H 95/64 99 11/17/18 00:15 98.2 F 107 H 22 H 83/53 L 99 11/17/18 00:00 98.2 F 112 H 23 H 86/49 L 99 11/16/18 22:42 118 H 11/16/18 22:30 99 11/16/18 22:04 120 H 82/46 L 11/16/18 21:47 100.4 F H 124 H 22 H 83/50 L 98 11/16/18 21:13 100.7 F H 126 H 24 H 90/51 L 98 11/16/18 20:06 102.9 F H 135 H 20 H 124/59 H 98 11/16/18 17:48 107 H 11/16/18 17:32 99.0 F 107 H 18 99/53 L 96 11/16/18 16:19 98.5 F 11/16/18 16:04 100.9 F H 109 H 22 H 98/52 L 99 11/16/18 15:07 101.4 F H 118 H 20 H 109/61 99 11/16/18 14:13 101.8 F H 124 H 24 H 114/70 97 11/16/18 12:38 104.4 F H 132 H 17 120/61 96 - Physical Exam General: Alert, Oriented x3, Cooperative, No apparent distress HEENT: Atraumatic, PERRLA, EOMI, Normocephalic Oral: + Grade 1 stomatitis, thrush Neck: Supple, No JVD Lungs: Clear to auscultation, Normal air movement, No rhonchi, No wheeze, No rales Cardiovascular: Regular rate, Regular Rhythm, Normal S1, Normal S2, No murmurs Abdomen: Soft, Non Tender, Non-Distended, No Hepato-splenomegaly Extremities: No edema, Capillary Refill Less than 3 Seconds Skin: No rashes, No breakdown, - - Port in her left chest looks good; no petechiae, ecchymosis, or bleeding from IV sites Neurological: Neuro grossly intact, Sensory exam intact to light touch and pain Psych/Mental Status: Normal Affect, Appropriate CXR no acute abnormality seen. Microbiology Past 72 Hours 11/16/18 14:35 Blood Culture - Preliminary Blood Culture (Wb) - Anticubital Left GNR lactose self pay representative 11/16/18 13:45 Blood Culture - Preliminary Blood Culture (Wb) #2 - Other GNR lactose self pay representative Laboratory Tests Past 24 Hrs 11/16/18 11/16/18 11/16/18 13:45 13:45 13:45 WBC 0.2 L* RBC 4.12 L Hgb 8.4 L Hct 26.0 L MCV 63.1 L MCH 20.4 L MCHC 32.3 RDW Std Deviation 37.0 RDW Coeff of [place] 17.4 H Plt Count 94 L MPV TNP Immature Gran % (Auto) 14.300 H Neut % (Auto) 4.7 L Lymph % (Auto) 66.7 H [place] % (Auto) 9.5 Eos % (Auto) 0.0 Baso % (Auto) 4.8 H Absolute Neuts (auto) 0.0 L Absolute Lymphs (auto) 0.14 L Nucleated RBC % 0 Differential Comment Diff Path Review May foll Platelet Estimate MOD DEC Hypochromasia 2+ Anisocytosis 1+ Microcytosis 2+ Tear Drop Cells RARE Ovalocytes 1+ Schistocytes PT 15.8 H INR 1.3 APTT 44.8 H Sodium 133 L Potassium 3.3 L Chloride 102 Carbon Dioxide 23.0 Anion Gap 8 BUN 20 H Creatinine 1.03 H Estim Creat Clear Calc 54.10 Est GFR (MDRD) Af Amer 72 Est GFR (MDRD) Non-Af 59 L BUN/Creatinine Ratio 19.4 Glucose 217 H Lactic Acid Calcium 8.3 L Phosphorus 1.5 L Magnesium 1.9 Total Bilirubin 0.60 AST 17 ALT 35 Alkaline Phosphatase 83 Total Protein 6.6 Albumin 2.7 L Globulin 3.9 Albumin/Globulin Ratio 0.7 L Urine Color Urine Clarity Urine pH Ur Specific [place] Urine Protein Urine Glucose (UA) Urine Ketones Urine Occult Blood Urine Nitrite Urine Bilirubin Urine Urobilinogen Ur Leukocyte Esterase Urine RBC Urine WBC Ur Squamous Epith Cells Urine Bacteria Urine Mucus Blood Type Antibody Screen Crossmatch 11/16/18 11/16/18 11/16/18 13:45 14:32 22:30 WBC RBC Hgb Hct MCV MCH MCHC RDW Std Deviation RDW Coeff of [place] Plt Count MPV Immature Gran % (Auto) Neut % (Auto) Lymph % (Auto) [place] % (Auto) Eos % (Auto) Baso % (Auto) Absolute Neuts (auto) Absolute Lymphs (auto) Nucleated RBC % Differential Comment Diff Path Review Platelet Estimate Hypochromasia Anisocytosis Microcytosis Tear Drop Cells Ovalocytes Schistocytes PT INR APTT Sodium Potassium Chloride Carbon Dioxide Anion Gap BUN Creatinine Estim Creat Clear Calc Est GFR (MDRD) Af Amer Est GFR (MDRD) Non-Af BUN/Creatinine Ratio Glucose Lactic Acid 1.0 1.3 Calcium Phosphorus Magnesium Total Bilirubin AST ALT Alkaline Phosphatase Total Protein Albumin Globulin Albumin/Globulin Ratio Urine Color Yellow Urine Clarity Sl. Cloudy Urine pH 6.0 Ur Specific [place] 1.010 Urine Protein 100 H Urine Glucose (UA) Normal Urine Ketones 50 H Urine Occult Blood 50 H Urine Nitrite Positive H Urine Bilirubin Negative Urine Urobilinogen Normal Ur Leukocyte Esterase 100 H Urine RBC 0 SEEN Urine WBC 0-5 SEEN Ur Squamous Epith Cells 0-5 SEEN Urine Bacteria 2+ Urine Mucus 0 SEEN Blood Type Antibody Screen Crossmatch 11/17/18 11/17/18 11/17/18 04:05 04:05 04:05 WBC 0.2 L* RBC 3.47 L Hgb 6.9 L Hct 22.2 L MCV 64.0 L MCH 19.9 L MCHC 31.1 L RDW Std Deviation 38.1 RDW Coeff of [place] 17.8 H Plt Count 40 L* MPV Immature Gran % (Auto) 0.000 Neut % (Auto) 20.0 L Lymph % (Auto) 73.3 H [place] % (Auto) 6.7 Eos % (Auto) 0.0 Baso % (Auto) 0.0 Absolute Neuts (auto) 0.0 L Absolute Lymphs (auto) 0.11 L Nucleated RBC % 0 Differential Comment SCANNED Diff Path Review May foll Platelet Estimate Hypochromasia 3+ Anisocytosis Microcytosis 3+ Tear Drop Cells Ovalocytes 1+ Schistocytes 1+ PT INR APTT Sodium 142 Potassium 3.8 Chloride 113 H Carbon Dioxide 18.0 L Anion Gap 11 BUN 18 Creatinine 0.90 Estim Creat Clear Calc 61.92 Est GFR (MDRD) Af Amer 84 Est GFR (MDRD) Non-Af 69 BUN/Creatinine Ratio 20.0 Glucose 219 H Lactic Acid Calcium 7.2 L Phosphorus 4.4 Magnesium Total Bilirubin AST ALT Alkaline Phosphatase Total Protein Albumin Globulin Albumin/Globulin Ratio Urine Color Urine Clarity Urine pH Ur Specific [place] Urine Protein Urine Glucose (UA) Urine Ketones Urine Occult Blood Urine Nitrite Urine Bilirubin Urine Urobilinogen Ur Leukocyte Esterase Urine RBC Urine WBC Ur Squamous Epith Cells Urine Bacteria Urine Mucus Blood Type Antibody Screen Crossmatch 11/17/18 07:00 WBC RBC Hgb Hct MCV MCH MCHC RDW Std Deviation RDW Coeff of [place] Plt Count MPV Immature Gran % (Auto) Neut % (Auto) Lymph % (Auto) [place] % (Auto) Eos % (Auto) Baso % (Auto) Absolute Neuts (auto) Absolute Lymphs (auto) Nucleated RBC % Differential Comment Diff Path Review Platelet Estimate Hypochromasia Anisocytosis Microcytosis Tear Drop Cells Ovalocytes Schistocytes PT INR APTT Sodium Potassium Chloride Carbon Dioxide Anion Gap BUN Creatinine Estim Creat Clear Calc Est GFR (MDRD) Af Amer Est GFR (MDRD) Non-Af BUN/Creatinine Ratio Glucose Lactic Acid Calcium Phosphorus Magnesium Total Bilirubin AST ALT Alkaline Phosphatase Total Protein Albumin Globulin Albumin/Globulin Ratio Urine Color Urine Clarity Urine pH Ur Specific [place] Urine Protein Urine Glucose (UA) Urine Ketones Urine Occult Blood Urine Nitrite Urine Bilirubin Urine Urobilinogen Ur Leukocyte Esterase Urine RBC Urine WBC Ur Squamous Epith Cells Urine Bacteria Urine Mucus Blood Type A POSITIVE Antibody Screen NEGATIVE Crossmatch See Detail Assessment/Plan All Active Problems This 53-year-old lady with history of stage II ER/IA negative HER-2 overexpressed breast cancer, receiving neoadjuvant chemotherapy (Adriamycin and cyclophosphamide day 8) present with gram-negative sepsis from UTI. 1) gram-negative sepsis 2) pancytopenia secondary to chemotherapy and infection 3) coagulopathy but no evidence of DIC 4) immunocompromise secondary to chemotherapy 5) history of hepatitis B 6) status post chemotherapy day 8 for stage 2 breast cancer. (IA) Recommendations: 1) continue broad-spectrum antibiotics (meropenem blood culture & urine culture results) and consult ID 2) ultrasound kidneys 3) supportive transfusion as indicated. 4) repeat PT/PTT and fibrinogen 5) consider vitamin K 5mg po x 1-2 if PT PTT are still elevated but normal fibrinogen & stable platelet count. 6) start GRANIX (G-CSF) 300mcg daily until ANC > 1000 start nystatin or Mycelex for thrush 7) continue Lovenox for DVT prophylaxis 8) we will delay her next round of chemotherapy -Prejta/Herceptin/Taxotere by a week. (2 weeks from now) 9) repeat 2D echocardiogram before her next round of chemotherapy. cc: Dr. Conrado Recinos, Dr. Perry Matias, Dr. Brayden Sparrow; Dr. Los Alanis
[2018-11-17 09:09] LABS: International Normalized Ratio 1.4; Prothrombin Time (Protime)PT. 17.2 SECONDS (11.7-14.9)
[2018-11-17 09:10] LABS: Fibrinogen 678 mg/dl (203-444); Partial Thromboplast Time 43.9 Seconds (24.1-36.2)
[2018-11-17 09:58] LABS: Magnesium 2.1 mg/dL (1.6-2.6)
--- NOTE | 2018-11-17 10:34 | CASEMGMT ---
Addendum entered by Sha River 11/17/18 11:21: Pt's voiced concerns re: bills for all the care. States his first priority is his , but he has concerns. is on short term disability now, has insurance through [employer]. HIRAL CM let know [facility] has patient financial service department on main floor if he would like to speak with them re: options for payment. stated he would and was relieved [facility] had someone to speak with re: financials. Call to Zainab Ann to update. Ana HU Original Note: RN CM Assessment Presentation: Neutropenic fever. Hx of chemo for breast cancer Intro role of CM and purpose of RN CM assessment to patient's . Pt is sleeping, not feeling well. Demographics, PCP and Pharmacy verified.Per , he is not working @ this time and is able to assist with home and care needs and provides transportation as she does not drive. Pt has been independent at home PCP: Dr. Sparrow Specialists: Dr. Recinos, Dr. Campos Preferred Pharmacy: [facility] Insurance: [place] Prescription Benefit: yes LNOK: , Saumya Rhodes Living Arrangements: Lives in two story home, first floor set up. Pt was independent, but able to assist if needed. Transportation: drives DME: no DME use. HHC: none. Patient DC goals: Home on discharge. states he will be able to care for her. DC PLAN: Anticipate Home on discharge. CM let know to contact cm if concerns or dc needs arise. Ana HU
[2018-11-17] MEDS: Glucerna Shake 120 ML LIQUID PO ×4 (10:49→22:29)
[2018-11-17] MEDS: TBO-FILGRASTIM 300 MCG/0.5 ML ML SC (10:50)
[2018-11-17] MEDS: ENTECAVIR 1 MG PO (10:51)
[2018-11-17] MEDS: Insulin Lispro 100 UNIT/ML INSULN.PEN SC (12:37)
--- NOTE | 2018-11-17 12:50 | PCM.PN.HOSP ---
Patient Problems: Active and Suspected Problems Immunosuppression due to drug therapy (Acute) Pancytopenia with fever (Acute) Septic shock (Acute) UTI (urinary tract infection) (Acute) Subjective: Patient was seen and examined in the company of her . Her Tmax is 103F. Complains of diarrhea with voiding of stools, x 5 since being admitted -4 last night and one today. Denies dysuria. Last time she had dysuria was 2 days ago. It had gone on for 3 days. Denies chest pain or dizziness or palpitations. Vitals/I&O's: Vital Signs Temp Pulse Resp BP Pulse Ox 98.4 F 99 20 H 112/70 98 11/17/18 12:17 11/17/18 12:17 11/17/18 12:17 11/17/18 12:17 11/17/18 12:17 Oxygen Delivery Method Room Air Weight: 55.2 kg Body Mass Index (BMI) 20.1 Intake and Output for Last 24 Hours 11/15/18 11/16/18 11/17/18 23:59 23:59 23:59 Intake Total 2630.52 / 3202.84 2463.95 / 2463.95 Output Total 275 / 275 350 / 350 Balance 2355.52 / 2927.84 2113.95 / 2113.95 General: Alert, Oriented x3, Cooperative, No apparent distress HEENT: Atraumatic, PERRLA, EOMI, Normocephalic, - - alopecia Neck: Supple Lungs: Clear to auscultation, Normal air movement Cardiovascular: Regular rate, Regular Rhythm, Normal S1, Normal S2, No murmurs, Tachycardic, - - Left sided medport without erythema Abdomen: Bowel Sounds Present, Soft, Non Tender, Non-Distended Extremities: No edema Skin: No rashes, No breakdown Musculoskeletal: No Tenderness to Palpation of Joints or Extremities Neurological: Cranial nerves II-XII grossly intact Psych/Mental Status: Normal Affect, Appropriate Microbiology Past 72 Hours 11/17/18 10:25 Stool C. difficile DNA Amplification - Final 11/16/18 14:35 Blood Culture (Wb) - Anticubital Left Blood Culture - Preliminary GNR lactose aircraft shipping checker 11/16/18 13:45 Blood Culture (Wb) #2 - Other Blood Culture - Preliminary GNR lactose aircraft shipping checker Laboratory Results 11/16/18 13:45: WBC 0.2 L*, RBC 4.12 L, Hgb 8.4 L, Hct 26.0 L, MCV 63.1 L, MCH 20.4 L, MCHC 32.3, RDW Std Deviation 37.0, RDW Coeff of Kimberly 17.4 H, Plt Count 94 L, MPV TNP, Immature Gran % (Auto) 14.300 H, Neut % (Auto) 4.7 L, Lymph % (Auto) 66.7 H, [place] % (Auto) 9.5, Eos % (Auto) 0.0, Baso % (Auto) 4.8 H, Absolute Neuts (auto) 0.0 L, Absolute Lymphs (auto) 0.14 L, Nucleated RBC % 0, Diff Path Review June, Platelet Estimate MOD DEC, Hypochromasia 2+, Anisocytosis 1+, Microcytosis 2+, Tear Drop Cells RARE, Ovalocytes 1+ 11/16/18 13:45: PT 15.8 H, INR 1.3, APTT 44.8 H 11/16/18 13:45: Sodium 133 L, Potassium 3.3 L, Chloride 102, Carbon Dioxide 23.0, Anion Gap 8, BUN 20 H, Creatinine 1.03 H, Estim Creat Clear Calc 54.10, Est GFR (MDRD) Af Amer 72, Est GFR (MDRD) Non-Af 59 L, BUN/Creatinine Ratio 19.4, Glucose 217 H, Calcium 8.3 L, Phosphorus 1.5 L, Magnesium 1.9, Total Bilirubin 0.60, AST 17, ALT 35, Alkaline Phosphatase 83, Total Protein 6.6, Albumin 2.7 L, Globulin 3.9, Albumin/Globulin Ratio 0.7 L 11/16/18 13:45: Lactic Acid 1.0 11/16/18 14:32: Urine Color Yellow, Urine Clarity Sl. Cloudy, Urine pH 6.0, Ur Specific Isabella 1.010, Urine Protein 100 H, Urine Glucose (UA) Normal, Urine Ketones 50 H, Urine Occult Blood 50 H, Urine Nitrite Positive H, Urine Bilirubin Negative, Urine Urobilinogen Normal, Ur Leukocyte Esterase 100 H, Urine RBC 0 SEEN, Urine WBC 0-5 SEEN, Ur Squamous Epith Cells 0-5 SEEN, Urine Bacteria 2+, Urine Mucus 0 SEEN 11/16/18 21:34: POC Glucose 224 H 11/16/18 22:30: Lactic Acid 1.3 11/17/18 04:05: WBC 0.2 L*, RBC 3.47 L, Hgb 6.9 L, Hct 22.2 L, MCV 64.0 L, MCH 19.9 L, MCHC 31.1 L, RDW Std Deviation 38.1, RDW Coeff of Kimberly 17.8 H, Plt Count 40 L*, Immature Gran % (Auto) 0.000, Neut % (Auto) 20.0 L, Lymph % (Auto) 73.3 H, [place] % (Auto) 6.7, Eos % (Auto) 0.0, Baso % (Auto) 0.0, Absolute Neuts (auto) 0.0 L, Absolute Lymphs (auto) 0.11 L, Nucleated RBC % 0, Differential Comment SCANNED, Diff Path Review May foll, Hypochromasia 3+, Microcytosis 3+, Ovalocytes 1+, Schistocytes 1+ 11/17/18 04:05: Sodium 142, Potassium 3.8, Chloride 113 H, Carbon Dioxide 18.0 L, Anion Gap 11, BUN 18, Creatinine 0.90, Estim Creat Clear Calc 61.92, Est GFR (MDRD) Af Amer 84, Est GFR (MDRD) Non-Af 69, BUN/Creatinine Ratio 20.0, Glucose 219 H, Calcium 7.2 L 11/17/18 04:05: Phosphorus 4.4 11/17/18 04:05: Magnesium 2.1 11/17/18 06:29: POC Glucose 142 H 11/17/18 07:00: Blood Type A POSITIVE, Antibody Screen NEGATIVE, Crossmatch See Detail 11/17/18 08:45: PT 17.2 H, INR 1.4, APTT 43.9 H, Fibrinogen 678 H Current Medications Acetaminophen (Tylenol) 650 mg PO Q4H PRN PRN PRN Reason: Mild Pain (1-3)/Temp > 100.7 F Last Admin: 11/17/18 09:58 Dose: 650 mg Documented by: Dextrose (D50w Syringe) 0 gm IV X1 PRN; Protocol PRN Reason: Hypoglycemia Glucagon () 1 mg IM .X1 PRN PRN Reason: Hypoglycemia Heparin Sodium (Beef Lung) () 50 units IV UD PRN PRN Reason: HEPARIN FLUSH Sodium Chloride () 1,000 mls @ 100 mls/hr IV .Q10H DEXTER Last Infusion: 11/17/18 12:02 Dose: 100 mls/hr Documented by: Meropenem 1 gm/ Sodium (Chloride) 120 mls @ 33 mls/hr IV Q8 DEXTER Last Infusion: 11/17/18 09:21 Dose: Infused Documented by: Sodium Chloride () 250 mls @ 15 mls/hr IV .[id number] PRN PRN Reason: SALINE FLUSH Last Infusion: 11/17/18 10:00 Dose: 0 mls/hr Documented by: Sodium Chloride () 250 mls @ 15 mls/hr IV .[id number] PRN PRN Reason: SALINE FLUSH Insulin Human Lispro (Humalog Kwikpen (Bkc)) 0 unit SC ACHS [facility]; Protocol Last Admin: 11/17/18 12:37 Dose: 4 u Documented by: Nutritional Formula (Lactose Free) (Glucerna Shake) 120 ml PO 4X/DAY [facility] Last Admin: 11/17/18 10:49 Dose: 120 ml Documented by: Sodium Chloride () 10 - 40 ml IV UD PRN PRN Reason: SALINE FLUSH Last Admin: 11/16/18 23:06 Dose: 40 ml Documented by: Sodium Chloride () 10 - 40 ml IV UD PRN PRN Reason: VAD FLUSH Tbo-Filgrastim (Granix) 300 mcg SC DAILY [facility] Last Admin: 11/17/18 10:50 Dose: 300 mcg Documented by: Medical Necessity - Tobacco Use Smoking Status: Never smoker Assessment/Plan All Active Problems Immunosuppression due to drug therapy (Acute) Pancytopenia with fever (Acute) Septic shock (Acute) UTI (urinary tract infection) (Acute) 53-year-old female with past medical history of stage II, ER/[place] negative 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 Septic shock secondary to E. coli UTI/neutropenia blood pressures are improved, blood cultures growing gram-negative eber lactose aircraft shipping checker, repeat cultures are pending, On IV meropenem, remains neutropenic, absolute neutrophil count is 0 We will continue to monitor in ICU, tinea antibiotics, follow-up on repeat blood cultures and sensitivity from urine culture We will get ultrasound of the kidneys 2. E. coli UTI, management as an #1 3. Neutropenic fever, status post chemotherapy 8 days ago, history of invasive ductal CA of the right breast On Granix, oncology following, will trend with daily CBC D 4. Pancytopenia secondary to chemotherapy, on Granix Patient will be receiving 1 unit packed RBC, will check H&H posttransfusion 5. Thrombocytopenia/Coagulopathy unclear etiology, oncology following, will continue to monitor for now 6. Oral thrush, on nystatin 7. Invasive ductal breast CA, on chemotherapy 8. Chronic hepatitis B carrier, on treatment 9. DVT PPx- SCDs Code Visit Inpatient E&M: 83974 Subs Hosp L2
--- NOTE | 2018-11-17 13:13 | US_ITS ---
STUDY: RENAL ULTRASOUND - COMPLETE REASON FOR EXAM: Female, 53 years old. Abnormal labs TECHNIQUE: Ultrasound evaluation of the kidneys was performed with real-time and static jackson-scale imaging. COMPARISON: None. FINDINGS: RIGHT KIDNEY: Normal location of the right kidney, which is normal in size. The right kidney measures 11 x 5.5 x 4.8 cm. There is a normal cortex of the right kidney. The renal cortex measures 1.4 cm. There is no right renal mass or cyst. There are no right renal calculi. There is no right hydronephrosis. DISTAL RIGHT URETER: There is non-visualization of the distal right ureter. There is no demonstrated right ureterovesical junction calculus. There is a visualized right ureteral jet. LEFT KIDNEY: Normal location of the left kidney, which is normal in size. The left kidney measures 11.1 x 4.2 x 5.5 cm. There is a normal cortex of the left kidney. The renal cortex measures 1.6 cm. There is no left renal mass or cyst. There are no left renal calculi. There is no left hydronephrosis. DISTAL LEFT URETER: There is non-visualization of the distal left ureter. There is no demonstrated left ureterovesical junction calculus. There is a visualized left ureteral jet. Mild increased cortical echoes which may be consistent with nonspecific renal parenchymal disease. BLADDER: The distended urinary bladder has a volume of 171.6 ml. There is a normal wall thickness of the distended urinary bladder. There is no demonstrated mass within the urinary bladder. There are no demonstrated bladder calculi. US/Kidney and Bladder IMPRESSION: Findings which may be consistent with mild nonspecific renal parenchymal disease No evidence for hydronephrosis or mass Electronically Signed: Deepak Bardales MD at 21:54 EDT , Service support ,
[2018-11-17] MEDS: NYSTATIN 500,000 UNIT/5 ML UDC 500000 UNIT PO ×3 (14:42→23:07)
[2018-11-17 15:00] LABS: Hematocrit 26.3 % (37-47); Hemoglobin 8.5 g/dL (12.0-15.0); POSITIVE MORPHOLOGY YES
[2018-11-17 15:17] LABS: Pathologist Review Reviewed
[2018-11-17 16:46] LABS: Bedside Glucose 204 mg/dL (70-110)
[2018-11-17 17:01] LABS: Bedside Glucose 171 mg/dL (70-110)
--- NOTE | 2018-11-17 19:20 | NURSING ---
Bedside report recieved from Tere BLACKMAN, lungs clear anteriorly per auscultation.
[2018-11-17 22:50] LABS: Bedside Glucose 149 mg/dL (70-110)
[2018-11-18] VITALS (18 sets, daily range): BP systolic 117–159; BP diastolic 68–95; PULSE 96–127; RESP 16–22; TEMP 36.1–39.1; O2SAT 97–100
[2018-11-18] MEDS: 0.9% Normal Saline 1,000 ML 100 ML IV ×2 (02:02→11:35)
[2018-11-18] MEDS: 0.9% NaCl Peripheral Flush Adult/Peds IV ×3 (05:32→22:18)
[2018-11-18] MEDS: Acetaminophen 325 MG Tablet 650 MG PO ×2 (05:39→13:45)
[2018-11-18 05:52] LABS: Absolute Lymphocyte Count 0.22 X10^3/uL (0.83-4.51); Absolute Neutrophil Count 0.2 X10^3/uL (2.0-7.7); Basophil# 0.01 X10^3/uL; Basophil% 2.3 % (0-1); Lymphocyte # 0.22 X10^3/ul (4.0); Mean Corp Hgb Conc 33.3 g/dL (32-36); Mean Corpuscular Hgb 21.5 pg (27.0-32.0); Mean Corpuscular Volume 64.4 fL (81-99); Monocyte# 0.05 X10^3/uL; Monocyte% 11.4 % (0-10); NRBC Flagged by Analyzer 0 % (0-5); Neutrophil # 0.16 X10^3/uL (2.7-7.7); Neutrophil % 36.3 % (47-70); POSITIVE COUNT YES; POSITIVE DIFFERENTIAL YES; POSITIVE MORPHOLOGY YES; RBC Distribution Width CV 20.4 % (11.6-14.6); RBC Distribution Width SD 44.1 fl (35.1-43.9); Red Blood Count 4.19 M/mm3 (4.2-5.4)
[2018-11-18 05:54] LABS: Differential Indicated SCAN CRITERIA MET
[2018-11-18 06:06] LABS: International Normalized Ratio 1.2
[2018-11-18 06:07] LABS: Partial Thromboplast Time 39.4 Seconds (24.1-36.2)
[2018-11-18 06:39] LABS: ALB/GLOB Ratio 0.6 RATIO (0.9-2.4); AST(SGOT) 15 U/L (15-37); Alanine Aminotransfer ALT/SGPT 31 U/L (13-56); Albumin, Serum 2.2 g/dL (3.2-5.0); Alkaline Phosphatase 77 U/L (45-117); Anion Gap 9 (5-15); BUN 12 mg/dL (7-18); BUN/Creat Ratio 18.4 RATIO (10-20); Bilirubin, Direct 0.35 mg/dL (0.00-0.30); Calcium,Total 7.7 mg/dL (8.5-10.1); Chloride 116 mmol/L (98-107); Creatinine, Serum 0.65 mg/dL (0.55-1.02); EST Glomerular Filtration Rate 100 mL/min (>60); Est Glom Filt Rate - Afr Amer 121 mL/min (>60); Estimated Creatinine Clearance 86.85 ml/min; Globulin 3.7 g/dL (2.2-4.2); Glucose 126 mg/dL (74-106); Phosphorus 1.8 mg/dL (2.5-4.9); Potassium 3.4 mmol/L (3.5-5.1); Protein, Total 5.9 g/dL (6.4-8.2); Sodium Level 144 mmol/L (136-145)
--- NOTE | 2018-11-18 07:17 | PCM.PN.HOSP ---
Patient Problems: Active and Suspected Problems Immunosuppression due to drug therapy (Acute) Pancytopenia with fever (Acute) Septic shock (Acute) UTI (urinary tract infection) (Acute) Subjective: Patient was seen and examined. She has diarrhea. Stool for C. diff as well as enteric panel is negative. Denies any more dysuria, frequency, chest pain or SOB. Objective: Physical exam: General: Alert, Oriented x3, Cooperative, No apparent distress HEENT: Atraumatic, PERRLA, EOMI, Normocephalic, - - alopecia, oral thrush Neck: Supple Lungs: Clear to auscultation, Normal air movement Cardiovascular: Regular rate, Regular Rhythm, Normal S1, Normal S2, No murmurs, Tachycardic, - - Left sided medport without erythema Abdomen: Bowel Sounds Present, Soft, Non Tender, Non-Distended Extremities: No edema Skin: No rashes, No breakdown Musculoskeletal: No Tenderness to Palpation of Joints or Extremities Neurological: Cranial nerves II-XII grossly intact Psych/Mental Status: Normal Affect, Appropriate Vitals/I&O's: Vital Signs Temp Pulse Resp BP Pulse Ox 97 F L 113 H 22 H 154/83 H 97 11/18/18 06:00 11/18/18 06:00 11/18/18 06:00 11/18/18 06:00 11/18/18 06:00 Oxygen Delivery Method Room Air Weight: 55.6 kg Body Mass Index (BMI) 20.1 Intake and Output for Last 24 Hours 11/16/18 11/17/18 11/18/18 23:59 23:59 23:59 Intake Total 2630.52 / 3202.84 3998.96 / 4048.96 1004.58 / 1004.58 Output Total 275 / 275 350 / 350 Balance 2355.52 / 2927.84 3648.96 / 3698.96 1004.58 / 1004.58 Microbiology Past 72 Hours 11/17/18 10:25 Stool Enteric Bacteriology - Final 11/16/18 14:32 Urine, Random Urine Culture - Preliminary Presumptive E. coli 11/17/18 10:25 Stool C. difficile DNA Amplification - Final 11/16/18 14:35 Blood Culture (Wb) - Anticubital Left Blood Culture - Preliminary GNR lactose confectionery maker 11/16/18 13:45 Blood Culture (Wb) #2 - Other Blood Culture - Preliminary GNR lactose confectionery maker Laboratory Results 11/16/18 13:45: Diff Path Review Reviewed 11/17/18 04:05: Magnesium 2.1 11/17/18 07:00: Blood Type A POSITIVE, Antibody Screen NEGATIVE, Crossmatch See Detail 11/17/18 08:45: PT 17.2 H, INR 1.4, APTT 43.9 H, Fibrinogen 678 H 11/17/18 12:36: POC Glucose 204 H 11/17/18 14:45: Hgb 8.5 L, Hct 26.3 L 11/17/18 16:45: POC Glucose 171 H 11/17/18 22:40: POC Glucose 149 H 11/18/18 05:30: WBC 0.4 L*, RBC 4.19 L, Hgb 9.0 L, Hct 27.0 L, MCV 64.4 L, MCH 21.5 L, MCHC 33.3, RDW Std Deviation 44.1 H, RDW Coeff of Kimberly 20.4 H, Plt Count 31 L*, Immature Gran % (Auto) 0.000, Neut % (Auto) 36.3 L, Lymph % (Auto) 50.0 H, [place] % (Auto) 11.4 H, Eos % (Auto) 0.0, Baso % (Auto) 2.3 H, Absolute Neuts (auto) 0.2 L, Absolute Lymphs (auto) 0.22 L, Nucleated RBC % 0 11/18/18 05:30: PT 15.0 H, INR 1.2, APTT 39.4 H 11/18/18 05:30: Sodium 144, Potassium 3.4 L, Chloride 116 H, Carbon Dioxide 19.0 L, Anion Gap 9, BUN 12, Creatinine 0.65, Estim Creat Clear Calc 86.85, Est GFR (MDRD) Af Amer 121, Est GFR (MDRD) Non-Af 100, BUN/Creatinine Ratio 18.4, Glucose 126 H, Calcium 7.7 L, Phosphorus 1.8 L, Total Bilirubin 0.70, Direct Bilirubin 0.35 H, AST 15, ALT 31, Alkaline Phosphatase 77, Total Protein 5.9 L, Albumin 2.2 L, Globulin 3.7, Albumin/Globulin Ratio 0.6 L Current Medications Acetaminophen (Tylenol) 650 mg PO Q4H PRN PRN PRN Reason: Mild Pain (1-3)/Temp > 100.7 F Last Admin: 11/18/18 05:39 Dose: 650 mg Documented by: Dextrose (D50w Syringe) 0 gm IV X1 PRN; Protocol PRN Reason: Hypoglycemia Glucagon () 1 mg IM .X1 PRN PRN Reason: Hypoglycemia Heparin Sodium (Beef Lung) () 50 units IV UD PRN PRN Reason: HEPARIN FLUSH Sodium Chloride () 1,000 mls @ 100 mls/hr IV .Q10H DEXTER Last Admin: 11/18/18 02:02 Dose: 100 mls/hr Documented by: Meropenem 1 gm/ Sodium (Chloride) 120 mls @ 33 mls/hr IV Q8 DEXTER Last Admin: 11/18/18 05:40 Dose: 33 mls/hr Documented by: Sodium Chloride () 250 mls @ 15 mls/hr IV .[id number] PRN PRN Reason: SALINE FLUSH Last Infusion: 11/18/18 02:48 Dose: 0 mls/hr Documented by: Sodium Chloride () 250 mls @ 15 mls/hr IV .[id number] PRN PRN Reason: SALINE FLUSH Insulin Human Lispro (Humalog Kwikpen (Bkc)) 0 unit SC ACHS [facility]; Protocol Last Admin: 11/17/18 22:42 Dose: Not Given Documented by: Nutritional Formula (Lactose Free) (Glucerna Shake) 120 ml PO 4X/DAY [facility] Last Admin: 11/17/18 22:29 Dose: 120 ml Documented by: Nystatin (Nystatin) 500,000 unit PO 4X/DAY D[facility] Last Admin: 11/17/18 23:07 Dose: 500,000 unit Documented by: Sodium Chloride () 10 - 40 ml IV UD PRN PRN Reason: SALINE FLUSH Last Admin: 11/18/18 05:32 Dose: 30 ml Documented by: Sodium Chloride () 10 - 40 ml IV UD PRN PRN Reason: VAD FLUSH Tbo-Filgrastim (Granix) 300 mcg SC DAILY [facility] Last Admin: 11/17/18 10:50 Dose: 300 mcg Documented by: Medical Necessity - Tobacco Use Smoking Status: Never smoker Assessment/Plan All Active Problems Immunosuppression due to drug therapy (Acute) Pancytopenia with fever (Acute) Septic shock (Acute) UTI (urinary tract infection) (Acute) 53-year-old female with past medical history of stage II, ER/[place] negative 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 Septic shock secondary to E. coli UTI/neutropenia blood pressures are improved, Blood cultures growing E. coli, likely source is E. coli UTI Repeat cultures are pending, On IV meropenem(day 2), remains neutropenic, absolute neutrophil count is 200 Will transfer to PCU 2. E. coli UTI, management as an #1, kidney ultrasound is unremarkable, continue on Meropenem 3. Hypokalemia, secondary to acute diarrhea, replaced, recheck in am 4. Acute diarrhea, C. diff, enteric panel negative 5. Acute hypophosphatemia, Phos 1.8 6. Neutropenic fever, status post chemotherapy 8 days ago, history of invasive ductal CA of the right breast On Granix, oncology following, will follow with daily CBCD 7. Pancytopenia secondary to chemotherapy, on Granix HB is 9.0, s/p 1 unit pRBC, Platelets are wore, will continue to monitor, 8. Thrombocytopenia/Coagulopathy unclear etiology, plt count is worse, not on aspirin or heparin Drop in plt from 94 to 31, s/p recent chemotherapy, not secondary to DIC, will continue to monitor pending recommendations from oncology. 9. Oral thrush, on nystatin 10. Invasive ductal breast CA, on chemotherapy 11. Chronic hepatitis B carrier, on treatment 12. DVT PPx- SCDs Code Visit Inpatient E&M: [id number] Subs Hosp L2
[2018-11-18 07:18] LABS: Platelet Count 31 K/mm3 (150-450); White Blood Count 0.4 K/mm3 (4.4-11.0)
[2018-11-18 07:19] LABS: Dohle Bodies 1+
[2018-11-18 07:20] LABS: Crenated RBC 2+; Microcytosis 3+; Schistocytes RARE
--- NOTE | 2018-11-18 07:37 | PCM.PN.INT ---
Subjective: Patient feels subjectively improved compared to yesterday. Patient has had some high fevers and chills overnight. No bleeding complications have been reported. Patient is reporting anorexia. No palpitations have been noted. General: Alert, Oriented x3, Cooperative, No apparent distress, - - Alopecia noted. No conversational dyspnea. HEENT: Atraumatic, PERRLA, EOMI, Normocephalic, - - No scleral icterus or injection noted. Oral: Moist Mucosa, No Gingival or Mucosal Lesions/ Ulcerations Neck: Supple, No JVD, No Nodes, Trachea Midline Lungs: Clear to auscultation, Normal air movement, No rhonchi, No wheeze, No rales Cardiovascular: Normal S1, Normal S2, No murmurs, No rub noted, No Gallop, Tachycardic Abdomen: Bowel Sounds Present, Soft, Non Tender, Non-Distended Extremities: No clubbing, No cyanosis, Edema - Trace anasarca Skin: No rashes, No breakdown Musculoskeletal: No Tenderness to Palpation of Joints or Extremities Lymphatic: No Cervical, Supraclavicular, or Inguinal Adenopathy Neurological: Cranial nerves II-XII grossly intact, Neuro grossly intact, Motor Exam 5/5 strength throughout Psych/Mental Status: Alert and oriented to time, place, person, mood and affect Vital Signs Temp Pulse Resp BP Pulse Ox 36.1 C L 113 H 22 H 154/83 H 97 11/18/18 06:00 11/18/18 06:00 11/18/18 06:00 11/18/18 06:00 11/18/18 06:00 Oxygen Delivery Method Room Air Weight: 55.6 kg Body Mass Index (BMI) 20.1 Intake and Output for Last 24 Hours 11/16/18 11/17/18 11/18/18 23:59 23:59 23:59 Intake Total 2630.52 / 3202.84 3998.96 / 4048.96 1004.58 / 1004.58 Output Total 275 / 275 350 / 350 Balance 2355.52 / 2927.84 3648.96 / 3698.96 1004.58 / 1004.58 Labs (Last 48 Hours) 11/16/18 11/16/18 11/16/18 13:45 13:45 13:45 WBC 0.2 L* RBC 4.12 L Hgb 8.4 L Hct 26.0 L MCV 63.1 L MCH 20.4 L MCHC 32.3 RDW Std Deviation 37.0 RDW Coeff of Kimberly 17.4 H Plt Count 94 L MPV TNP Immature Gran % (Auto) 14.300 H Neut % (Auto) 4.7 L Lymph % (Auto) 66.7 H [place] % (Auto) 9.5 Eos % (Auto) 0.0 Baso % (Auto) 4.8 H Absolute Neuts (auto) 0.0 L Absolute Lymphs (auto) 0.14 L Nucleated RBC % 0 Differential Comment Diff Path Review Reviewed Dohle Bodies Platelet Estimate MOD DEC Hypochromasia 2+ Anisocytosis 1+ Microcytosis 2+ Tear Drop Cells RARE Ovalocytes 1+ Crenated Cell Schistocytes PT 15.8 H INR 1.3 APTT 44.8 H Fibrinogen Sodium 133 L Potassium 3.3 L Chloride 102 Carbon Dioxide 23.0 Anion Gap 8 BUN 20 H Creatinine 1.03 H Estim Creat Clear Calc 54.10 Est GFR (MDRD) Af Amer 72 Est GFR (MDRD) Non-Af 59 L BUN/Creatinine Ratio 19.4 Glucose 217 H Lactic Acid Calcium 8.3 L Phosphorus 1.5 L Magnesium 1.9 Total Bilirubin 0.60 Direct Bilirubin AST 17 ALT 35 Alkaline Phosphatase 83 Total Protein 6.6 Albumin 2.7 L Globulin 3.9 Albumin/Globulin Ratio 0.7 L Urine Color Urine Clarity Urine pH Ur Specific [place] Urine Protein Urine Glucose (UA) Urine Ketones Urine Occult Blood Urine Nitrite Urine Bilirubin Urine Urobilinogen Ur Leukocyte Esterase Urine RBC Urine WBC Ur Squamous Epith Cells Urine Bacteria Urine Mucus POC Glucose Blood Type Antibody Screen Crossmatch 11/16/18 11/16/18 11/16/18 13:45 14:32 21:34 WBC RBC Hgb Hct MCV MCH MCHC RDW Std Deviation RDW Coeff of Kimberly Plt Count MPV Immature Gran % (Auto) Neut % (Auto) Lymph % (Auto) [place] % (Auto) Eos % (Auto) Baso % (Auto) Absolute Neuts (auto) Absolute Lymphs (auto) Nucleated RBC % Differential Comment Diff Path Review Dohle Bodies Platelet Estimate Hypochromasia Anisocytosis Microcytosis Tear Drop Cells Ovalocytes Crenated Cell Schistocytes PT INR APTT Fibrinogen Sodium Potassium Chloride Carbon Dioxide Anion Gap BUN Creatinine Estim Creat Clear Calc Est GFR (MDRD) Af Amer Est GFR (MDRD) Non-Af BUN/Creatinine Ratio Glucose Lactic Acid 1.0 Calcium Phosphorus Magnesium Total Bilirubin Direct Bilirubin AST ALT Alkaline Phosphatase Total Protein Albumin Globulin Albumin/Globulin Ratio Urine Color Yellow Urine Clarity Sl. Cloudy Urine pH 6.0 Ur Specific [place] 1.010 Urine Protein 100 H Urine Glucose (UA) Normal Urine Ketones 50 H Urine Occult Blood 50 H Urine Nitrite Positive H Urine Bilirubin Negative Urine Urobilinogen Normal Ur Leukocyte Esterase 100 H Urine RBC 0 SEEN Urine WBC 0-5 SEEN Ur Squamous Epith Cells 0-5 SEEN Urine Bacteria 2+ Urine Mucus 0 SEEN POC Glucose 224 H Blood Type Antibody Screen Crossmatch 11/16/18 11/17/18 11/17/18 22:30 04:05 04:05 WBC 0.2 L* RBC 3.47 L Hgb 6.9 L Hct 22.2 L MCV 64.0 L MCH 19.9 L MCHC 31.1 L RDW Std Deviation 38.1 RDW Coeff of Kimberly 17.8 H Plt Count 40 L* MPV Immature Gran % (Auto) 0.000 Neut % (Auto) 20.0 L Lymph % (Auto) 73.3 H [place] % (Auto) 6.7 Eos % (Auto) 0.0 Baso % (Auto) 0.0 Absolute Neuts (auto) 0.0 L Absolute Lymphs (auto) 0.11 L Nucleated RBC % 0 Differential Comment SCANNED Diff Path Review May foll Dohle Bodies Platelet Estimate Hypochromasia 3+ Anisocytosis Microcytosis 3+ Tear Drop Cells Ovalocytes 1+ Crenated Cell Schistocytes 1+ PT INR APTT Fibrinogen Sodium 142 Potassium 3.8 Chloride 113 H Carbon Dioxide 18.0 L Anion Gap 11 BUN 18 Creatinine 0.90 Estim Creat Clear Calc 61.92 Est GFR (MDRD) Af Amer 84 Est GFR (MDRD) Non-Af 69 BUN/Creatinine Ratio 20.0 Glucose 219 H Lactic Acid 1.3 Calcium 7.2 L Phosphorus Magnesium Total Bilirubin Direct Bilirubin AST ALT Alkaline Phosphatase Total Protein Albumin Globulin Albumin/Globulin Ratio Urine Color Urine Clarity Urine pH Ur Specific [place] Urine Protein Urine Glucose (UA) Urine Ketones Urine Occult Blood Urine Nitrite Urine Bilirubin Urine Urobilinogen Ur Leukocyte Esterase Urine RBC Urine WBC Ur Squamous Epith Cells Urine Bacteria Urine Mucus POC Glucose Blood Type Antibody Screen Crossmatch 11/17/18 11/17/18 11/17/18 04:05 04:05 06:29 WBC RBC Hgb Hct MCV MCH MCHC RDW Std Deviation RDW Coeff of Kimberly Plt Count MPV Immature Gran % (Auto) Neut % (Auto) Lymph % (Auto) [place] % (Auto) Eos % (Auto) Baso % (Auto) Absolute Neuts (auto) Absolute Lymphs (auto) Nucleated RBC % Differential Comment Diff Path Review Dohle Bodies Platelet Estimate Hypochromasia Anisocytosis Microcytosis Tear Drop Cells Ovalocytes Crenated Cell Schistocytes PT INR APTT Fibrinogen Sodium Potassium Chloride Carbon Dioxide Anion Gap BUN Creatinine Estim Creat Clear Calc Est GFR (MDRD) Af Amer Est GFR (MDRD) Non-Af BUN/Creatinine Ratio Glucose Lactic Acid Calcium Phosphorus 4.4 Magnesium 2.1 Total Bilirubin Direct Bilirubin AST ALT Alkaline Phosphatase Total Protein Albumin Globulin Albumin/Globulin Ratio Urine Color Urine Clarity Urine pH Ur Specific [place] Urine Protein Urine Glucose (UA) Urine Ketones Urine Occult Blood Urine Nitrite Urine Bilirubin Urine Urobilinogen Ur Leukocyte Esterase Urine RBC Urine WBC Ur Squamous Epith Cells Urine Bacteria Urine Mucus POC Glucose 142 H Blood Type Antibody Screen Crossmatch 11/17/18 11/17/18 11/17/18 07:00 08:45 12:36 WBC RBC Hgb Hct MCV MCH MCHC RDW Std Deviation RDW Coeff of Kimberly Plt Count MPV Immature Gran % (Auto) Neut % (Auto) Lymph % (Auto) [place] % (Auto) Eos % (Auto) Baso % (Auto) Absolute Neuts (auto) Absolute Lymphs (auto) Nucleated RBC % Differential Comment Diff Path Review Dohle Bodies Platelet Estimate Hypochromasia Anisocytosis Microcytosis Tear Drop Cells Ovalocytes Crenated Cell Schistocytes PT 17.2 H INR 1.4 APTT 43.9 H Fibrinogen 678 H Sodium Potassium Chloride Carbon Dioxide Anion Gap BUN Creatinine Estim Creat Clear Calc Est GFR (MDRD) Af Amer Est GFR (MDRD) Non-Af BUN/Creatinine Ratio Glucose Lactic Acid Calcium Phosphorus Magnesium Total Bilirubin Direct Bilirubin AST ALT Alkaline Phosphatase Total Protein Albumin Globulin Albumin/Globulin Ratio Urine Color Urine Clarity Urine pH Ur Specific [place] Urine Protein Urine Glucose (UA) Urine Ketones Urine Occult Blood Urine Nitrite Urine Bilirubin Urine Urobilinogen Ur Leukocyte Esterase Urine RBC Urine WBC Ur Squamous Epith Cells Urine Bacteria Urine Mucus POC Glucose 204 H Blood Type A POSITIVE Antibody Screen NEGATIVE Crossmatch See Detail 11/17/18 11/17/18 11/17/18 14:45 16:45 22:40 WBC RBC Hgb 8.5 L Hct 26.3 L MCV MCH MCHC RDW Std Deviation RDW Coeff of Kimberly Plt Count MPV Immature Gran % (Auto) Neut % (Auto) Lymph % (Auto) [place] % (Auto) Eos % (Auto) Baso % (Auto) Absolute Neuts (auto) Absolute Lymphs (auto) Nucleated RBC % Differential Comment Diff Path Review Dohle Bodies Platelet Estimate Hypochromasia Anisocytosis Microcytosis Tear Drop Cells Ovalocytes Crenated Cell Schistocytes PT INR APTT Fibrinogen Sodium Potassium Chloride Carbon Dioxide Anion Gap BUN Creatinine Estim Creat Clear Calc Est GFR (MDRD) Af Amer Est GFR (MDRD) Non-Af BUN/Creatinine Ratio Glucose Lactic Acid Calcium Phosphorus Magnesium Total Bilirubin Direct Bilirubin AST ALT Alkaline Phosphatase Total Protein Albumin Globulin Albumin/Globulin Ratio Urine Color Urine Clarity Urine pH Ur Specific [place] Urine Protein Urine Glucose (UA) Urine Ketones Urine Occult Blood Urine Nitrite Urine Bilirubin Urine Urobilinogen Ur Leukocyte Esterase Urine RBC Urine WBC Ur Squamous Epith Cells Urine Bacteria Urine Mucus POC Glucose 171 H 149 H Blood Type Antibody Screen Crossmatch 11/18/18 11/18/18 11/18/18 05:30 05:30 05:30 WBC 0.4 L* RBC 4.19 L Hgb 9.0 L Hct 27.0 L MCV 64.4 L MCH 21.5 L MCHC 33.3 RDW Std Deviation 44.1 H RDW Coeff of Kimberly 20.4 H Plt Count 31 L* MPV Immature Gran % (Auto) 0.000 Neut % (Auto) 36.3 L Lymph % (Auto) 50.0 H [place] % (Auto) 11.4 H Eos % (Auto) 0.0 Baso % (Auto) 2.3 H Absolute Neuts (auto) 0.2 L Absolute Lymphs (auto) 0.22 L Nucleated RBC % 0 Differential Comment Diff Path Review May foll Dohle Bodies 1+ Platelet Estimate Hypochromasia Anisocytosis Microcytosis 3+ Tear Drop Cells Ovalocytes Crenated Cell 2+ Schistocytes RARE PT 15.0 H INR 1.2 APTT 39.4 H Fibrinogen Sodium 144 Potassium 3.4 L Chloride 116 H Carbon Dioxide 19.0 L Anion Gap 9 BUN 12 Creatinine 0.65 Estim Creat Clear Calc 86.85 Est GFR (MDRD) Af Amer 121 Est GFR (MDRD) Non-Af 100 BUN/Creatinine Ratio 18.4 Glucose 126 H Lactic Acid Calcium 7.7 L Phosphorus 1.8 L Magnesium Total Bilirubin 0.70 Direct Bilirubin 0.35 H AST 15 ALT 31 Alkaline Phosphatase 77 Total Protein 5.9 L Albumin 2.2 L Globulin 3.7 Albumin/Globulin Ratio 0.6 L Urine Color Urine Clarity Urine pH Ur Specific [place] Urine Protein Urine Glucose (UA) Urine Ketones Urine Occult Blood Urine Nitrite Urine Bilirubin Urine Urobilinogen Ur Leukocyte Esterase Urine RBC Urine WBC Ur Squamous Epith Cells Urine Bacteria Urine Mucus POC Glucose Blood Type Antibody Screen Crossmatch Microbiology 11/17/18 10:25 Stool Enteric Bacteriology - Final 11/16/18 14:32 Urine, Random Urine Culture - Preliminary Presumptive E. coli 11/17/18 10:25 Stool C. difficile DNA Amplification - Final 11/16/18 14:35 Blood Culture (Wb) - Anticubital Left Blood Culture - Preliminary GNR lactose explosive operator fuse 11/16/18 13:45 Blood Culture (Wb) #2 - Other Blood Culture - Preliminary GNR lactose explosive operator fuse Clinical Impression(s) from Imaging Studies Renal Ultrasound 11/17/18 13:13 IMPRESSION: Findings which may be consistent with mild nonspecific renal parenchymal disease No evidence for hydronephrosis or mass Electronically Signed: Deepak Bardales MD at 21:54 EDT , Service support , Medical Necessity - Tobacco Use Smoking Status: Never smoker Assessment/Plan All Active Problems Immunosuppression due to drug therapy (Acute) Pancytopenia with fever (Acute) Septic shock (Acute) UTI (urinary tract infection) (Acute) RECOMMENDATIONS: 1. Continue broad-spectrum antibiotics until sensitivities available 2. Replete potassium and phosphorus 3. Consider oncology consult for G-CSF recommendations 4. Okay to leave the intensive care unit from my perspective 5. Hold on platelet transfusion unless develops bleeding complications IMPRESSIONS: 1. Septic shock secondary to E. coli UTI Patient has gram-negative organisms growing in all blood cultures in less than 24 hours and urine has resulted in E. coli. Patient will be at risk for immune reconstitution complications if bacteremia cannot be cleared before immune response. Patient has been stable in the intensive care unit for over 24 hours. Continue current antibiotics. Patient is doing well on room air, so fluid boluses may be an option moving forward. No other secondary source is apparent at this time. 2. Neutropenic fever with pancytopenia secondary to chemotherapy Patient with a T-max of 38.6 ?C. Blood pressure is normal at this time. Patient with known right-sided breast cancer. Patient has had a slight improvement in white blood cell count. Platelets continue to be marginal at 31, but patient is not bleeding, so no transfusion would be indicated. 3. Diabetes mellitus type 2/recent chemotherapy/hypokalemia/hypo-phosphatemia/acute kidney injury Complicates care, management, recovery and prognosis. Variable p.o. intake, so would cover with sliding scale only. Repletion as indicated. Anticipate prerenal etiology secondary to #1. Renal function continues to improve. Code Visit Inpatient E&M: 97606 Subs Hosp L3
[2018-11-18] MEDS: ENTECAVIR 1 MG PO (11:36)
[2018-11-18] MEDS: TBO-FILGRASTIM 300 MCG/0.5 ML ML SC (11:36)
[2018-11-18] MEDS: NYSTATIN 500,000 UNIT/5 ML UDC 500000 UNIT PO ×4 (11:42→22:18)
[2018-11-18] MEDS: Na Biphos/Potassium Phosphate PACKET 1 PACKET PO ×4 (11:42→22:18)
[2018-11-18] MEDS: Glucerna Shake 120 ML LIQUID PO (11:43)
[2018-11-18 11:51] LABS: Bedside Glucose 116 mg/dL (70-110)
--- NOTE | 2018-11-18 12:05 | NURSING ---
report called to [facility]
[2018-11-18] MEDS: Loperamide 2 MG Capsule PO (13:33)
[2018-11-18 17:01] LABS: Bedside Glucose 135 mg/dL (70-110)
[2018-11-18 22:51] LABS: Bedside Glucose 125 mg/dL (70-110)
[2018-11-19] VITALS (10 sets, daily range): BP systolic 122–142; BP diastolic 69–85; PULSE 100–115; RESP 14–18; TEMP 36.8–38.5; O2SAT 97–99
[2018-11-19 06:10] LABS: Albumin, Serum 1.9 g/dL (3.2-5.0); BUN 9 mg/dL (7-18); BUN/Creat Ratio 14.5 RATIO (10-20); Calcium,Total 7.7 mg/dL (8.5-10.1); Chloride 116 mmol/L (98-107); Creatinine, Serum 0.62 mg/dL (0.55-1.02); EST Glomerular Filtration Rate 107 mL/min (>60); Est Glom Filt Rate - Afr Amer 129 mL/min (>60); Estimated Creatinine Clearance 91.05 ml/min; Glucose 105 mg/dL (74-106); Potassium 3.4 mmol/L (3.5-5.1); Sodium Level 143 mmol/L (136-145)
[2018-11-19 06:58] LABS: Anisocytosis 2+
[2018-11-19 06:59] LABS: Absolute Lymphocyte Count 0.23 X10^3/uL (0.83-4.51); Absolute Neutrophil Count 0.9 X10^3/uL (2.0-7.7); Basophil# 0.02 X10^3/uL; Basophil% 1.6 % (0-1); Hematocrit 24.7 % (37-47); Hemoglobin 8.3 g/dL (12.0-15.0); Lymphocyte # 0.23 X10^3/ul (4.0); Lymphocyte % 18.9 % (19-41); Mean Corp Hgb Conc 33.6 g/dL (32-36); Mean Corpuscular Hgb 21.6 pg (27.0-32.0); Mean Corpuscular Volume 64.2 fL (81-99); Monocyte# 0.11 X10^3/uL; NRBC Flagged by Analyzer 0 % (0-5); Neutrophil # 0.86 X10^3/uL (2.7-7.7); Neutrophil % 70.5 % (47-70); POSITIVE COUNT YES; POSITIVE DIFFERENTIAL YES; POSITIVE MORPHOLOGY YES; Platelet Count 26 K/mm3 (150-450); RBC Distribution Width CV 20.3 % (11.6-14.6); RBC Distribution Width SD 43.9 fl (35.1-43.9); Red Blood Count 3.85 M/mm3 (4.2-5.4); White Blood Count 1.2 K/mm3 (4.4-11.0)
[2018-11-19 07:01] LABS: Bedside Glucose 111 mg/dL (70-110)
--- NOTE | 2018-11-19 07:07 | NURSING ---
This RN took critical value report from lab. This RN called Gonzalo Polanco RN (pt primary nurse) and reported critical platelet count and critical WBC count.
--- NOTE | 2018-11-19 08:01 | PN_ITS ---
Subjective: Patient transferred out of the intensive care unit yesterday. Patient did well overnight. Patient reports subjective improvement in overall condition. Patient denies any nausea or vomiting. Patient states her diet is slightly improved. General: Alert, Oriented x3, Cooperative, No apparent distress, - - No conversational dyspnea. HEENT: Atraumatic, PERRLA, EOMI, Normocephalic, - - Alopecia noted. Oral: Moist Mucosa, No Gingival or Mucosal Lesions/ Ulcerations Neck: Supple, No JVD, No Nodes, Trachea Midline Lungs: Clear to auscultation, Normal air movement, No rhonchi, No wheeze, No rales Cardiovascular: Regular Rhythm, Normal S1, Normal S2, No murmurs, No rub noted, No Gallop, Tachycardic Abdomen: Bowel Sounds Present, Soft, Non Tender, Non-Distended Extremities: No clubbing, No cyanosis, No edema, Capillary Refill Less than 3 Seconds Skin: No rashes, No breakdown Musculoskeletal: No Tenderness to Palpation of Joints or Extremities Lymphatic: No Cervical, Supraclavicular, or Inguinal Adenopathy Neurological: Cranial nerves II-XII grossly intact, Neuro grossly intact, Motor Exam 5/5 strength throughout Psych/Mental Status: Alert and oriented to time, place, person, mood and affect Vital Signs Temp Pulse Resp BP Pulse Ox 38.3 C H 115 H 18 137/76 H 99 11/19/18 04:05 11/19/18 04:05 11/19/18 04:05 11/19/18 04:05 11/19/18 04:05 Oxygen Delivery Method Room Air Weight: 55.6 kg Body Mass Index (BMI) 20.1 Intake and Output for Last 24 Hours 11/17/18 11/18/18 11/19/18 23:59 23:59 23:59 Intake Total 3998.96 / 4048.96 3907.91 / 3907.91 266.67 / 266.67 Output Total 350 / 350 Balance 3648.96 / 3698.96 3907.91 / 3907.91 266.67 / 266.67 Labs (Last 48 Hours) 11/16/18 11/17/18 11/17/18 13:45 04:05 07:00 WBC RBC Hgb Hct MCV MCH MCHC RDW Std Deviation RDW Coeff of Kimberly Plt Count Immature Gran % (Auto) Neut % (Auto) Lymph % (Auto) [place] % (Auto) Eos % (Auto) Baso % (Auto) Absolute Neuts (auto) Absolute Lymphs (auto) Nucleated RBC % Differential Comment Diff Path Review Reviewed Dohle Bodies Anisocytosis Microcytosis Crenated Cell Schistocytes PT INR APTT Fibrinogen Sodium Potassium Chloride Carbon Dioxide Anion Gap BUN Creatinine Estim Creat Clear Calc Est GFR (MDRD) Af Amer Est GFR (MDRD) Non-Af BUN/Creatinine Ratio Glucose Calcium Phosphorus Magnesium 2.1 Total Bilirubin Direct Bilirubin AST ALT Alkaline Phosphatase Total Protein Albumin Globulin Albumin/Globulin Ratio POC Glucose Blood Type A POSITIVE Antibody Screen NEGATIVE Crossmatch See Detail 11/17/18 11/17/18 11/17/18 08:45 12:36 14:45 WBC RBC Hgb 8.5 L Hct 26.3 L MCV MCH MCHC RDW Std Deviation RDW Coeff of Kimberly Plt Count Immature Gran % (Auto) Neut % (Auto) Lymph % (Auto) [place] % (Auto) Eos % (Auto) Baso % (Auto) Absolute Neuts (auto) Absolute Lymphs (auto) Nucleated RBC % Differential Comment Diff Path Review Dohle Bodies Anisocytosis Microcytosis Crenated Cell Schistocytes PT 17.2 H INR 1.4 APTT 43.9 H Fibrinogen 678 H Sodium Potassium Chloride Carbon Dioxide Anion Gap BUN Creatinine Estim Creat Clear Calc Est GFR (MDRD) Af Amer Est GFR (MDRD) Non-Af BUN/Creatinine Ratio Glucose Calcium Phosphorus Magnesium Total Bilirubin Direct Bilirubin AST ALT Alkaline Phosphatase Total Protein Albumin Globulin Albumin/Globulin Ratio POC Glucose 204 H Blood Type Antibody Screen Crossmatch 11/17/18 11/17/18 11/18/18 16:45 22:40 05:30 WBC 0.4 L* RBC 4.19 L Hgb 9.0 L Hct 27.0 L MCV 64.4 L MCH 21.5 L MCHC 33.3 RDW Std Deviation 44.1 H RDW Coeff of Kimberly 20.4 H Plt Count 31 L* Immature Gran % (Auto) 0.000 Neut % (Auto) 36.3 L Lymph % (Auto) 50.0 H [place] % (Auto) 11.4 H Eos % (Auto) 0.0 Baso % (Auto) 2.3 H Absolute Neuts (auto) 0.2 L Absolute Lymphs (auto) 0.22 L Nucleated RBC % 0 Differential Comment Diff Path Review May foll Dohle Bodies 1+ Anisocytosis Microcytosis 3+ Crenated Cell 2+ Schistocytes RARE PT INR APTT Fibrinogen Sodium Potassium Chloride Carbon Dioxide Anion Gap BUN Creatinine Estim Creat Clear Calc Est GFR (MDRD) Af Amer Est GFR (MDRD) Non-Af BUN/Creatinine Ratio Glucose Calcium Phosphorus Magnesium Total Bilirubin Direct Bilirubin AST ALT Alkaline Phosphatase Total Protein Albumin Globulin Albumin/Globulin Ratio POC Glucose 171 H 149 H Blood Type Antibody Screen Crossmatch 11/18/18 11/18/18 11/18/18 05:30 05:30 11:42 WBC RBC Hgb Hct MCV MCH MCHC RDW Std Deviation RDW Coeff of Kimberly Plt Count Immature Gran % (Auto) Neut % (Auto) Lymph % (Auto) [place] % (Auto) Eos % (Auto) Baso % (Auto) Absolute Neuts (auto) Absolute Lymphs (auto) Nucleated RBC % Differential Comment Diff Path Review Dohle Bodies Anisocytosis Microcytosis Crenated Cell Schistocytes PT 15.0 H INR 1.2 APTT 39.4 H Fibrinogen Sodium 144 Potassium 3.4 L Chloride 116 H Carbon Dioxide 19.0 L Anion Gap 9 BUN 12 Creatinine 0.65 Estim Creat Clear Calc 86.85 Est GFR (MDRD) Af Amer 121 Est GFR (MDRD) Non-Af 100 BUN/Creatinine Ratio 18.4 Glucose 126 H Calcium 7.7 L Phosphorus 1.8 L Magnesium Total Bilirubin 0.70 Direct Bilirubin 0.35 H AST 15 ALT 31 Alkaline Phosphatase 77 Total Protein 5.9 L Albumin 2.2 L Globulin 3.7 Albumin/Globulin Ratio 0.6 L POC Glucose 116 H Blood Type Antibody Screen Crossmatch 11/18/18 11/18/18 11/19/18 16:49 22:10 04:05 WBC 1.2 L* RBC 3.85 L Hgb 8.3 L Hct 24.7 L MCV 64.2 L MCH 21.6 L MCHC 33.6 RDW Std Deviation 43.9 RDW Coeff of Kimberly 20.3 H Plt Count 26 L* Immature Gran % (Auto) 0.000 Neut % (Auto) 70.5 H Lymph % (Auto) 18.9 L [place] % (Auto) 9.0 Eos % (Auto) 0.0 Baso % (Auto) 1.6 H Absolute Neuts (auto) 0.9 L Absolute Lymphs (auto) 0.23 L Nucleated RBC % 0 Differential Comment Diff Path Review May foll Dohle Bodies Anisocytosis 2+ Microcytosis Crenated Cell Schistocytes PT INR APTT Fibrinogen Sodium Potassium Chloride Carbon Dioxide Anion Gap BUN Creatinine Estim Creat Clear Calc Est GFR (MDRD) Af Amer Est GFR (MDRD) Non-Af BUN/Creatinine Ratio Glucose Calcium Phosphorus Magnesium Total Bilirubin Direct Bilirubin AST ALT Alkaline Phosphatase Total Protein Albumin Globulin Albumin/Globulin Ratio POC Glucose 135 H 125 H Blood Type Antibody Screen Crossmatch 11/19/18 11/19/18 04:05 06:46 WBC RBC Hgb Hct MCV MCH MCHC RDW Std Deviation RDW Coeff of Kimberly Plt Count Immature Gran % (Auto) Neut % (Auto) Lymph % (Auto) [place] % (Auto) Eos % (Auto) Baso % (Auto) Absolute Neuts (auto) Absolute Lymphs (auto) Nucleated RBC % Differential Comment Diff Path Review Dohle Bodies Anisocytosis Microcytosis Crenated Cell Schistocytes PT INR APTT Fibrinogen Sodium 143 Potassium 3.4 L Chloride 116 H Carbon Dioxide 18.0 L Anion Gap BUN 9 Creatinine 0.62 Estim Creat Clear Calc 91.05 Est GFR (MDRD) Af Amer 129 Est GFR (MDRD) Non-Af 107 BUN/Creatinine Ratio 14.5 Glucose 105 Calcium 7.7 L Phosphorus 3.0 Magnesium Total Bilirubin Direct Bilirubin AST ALT Alkaline Phosphatase Total Protein Albumin 1.9 L Globulin Albumin/Globulin Ratio POC Glucose 111 H Blood Type Antibody Screen Crossmatch Microbiology 11/16/18 14:32 Urine, Random Urine Culture - Final Presumptive E. coli 11/16/18 13:45 Blood Culture (Wb) #2 - Other Blood Culture - Preliminary Presumptive E. coli 11/16/18 14:35 Blood Culture (Wb) - Anticubital Left Blood Culture - Preliminary Escherichia coli 11/17/18 10:25 Stool Enteric Bacteriology - Final 11/17/18 10:25 Stool C. difficile DNA Amplification - Final Medical Necessity - Tobacco Use Smoking Status: Never smoker Assessment/Plan All Active Problems Immunosuppression due to drug therapy (Acute) Pancytopenia with fever (Acute) Septic shock (Acute) UTI (urinary tract infection) (Acute) RECOMMENDATIONS: 1. Consider transition to cefepime 2. Replete potassium as ordered 3. Hold on platelet transfusion unless bleeding complications 4. Hemodynamically stable on room air. Will sign off from a critical care perspective IMPRESSIONS: 1. Septic shock secondary to E. coli UTI Patient has gram-negative organisms growing in all blood cultures in less than 24 hours and urine has resulted in E. coli that is relatively sensitive. Patient will be at risk for immune reconstitution complications if bacteremia cannot be cleared before immune response. Patient has responded to meropenem, but cefepime may be a better option. Could consider repeat of blood cultures to ensure resolution of bacteremia, but defer to hospitalist. Patient has been hemodynamically stable on room air. Will sign off from a critical care perspective 2. Neutropenic fever with pancytopenia secondary to chemotherapy Patient with a T-max of 39.1 ?C. Blood pressure is normal at this time. Patient with known right-sided breast cancer. Patient has had a slight improvement in white blood cell count. Platelets continue to be marginal at 26, but patient is not bleeding, so no transfusion would be indicated. 3. Diabetes mellitus type 2/recent chemotherapy/hypokalemia/hypo- phosphatemia/acute kidney injury Complicates care, management, recovery and prognosis. Variable p.o. intake, so would cover with sliding scale only. Repletion as indicated. Anticipate prerenal etiology secondary to #1. Renal function has normalized. Code Visit Inpatient E&M: 39919 Subs Hosp L2
[2018-11-19] MEDS: ENTECAVIR 1 MG PO (09:36)
[2018-11-19] MEDS: Na Biphos/Potassium Phosphate PACKET 1 PACKET PO ×4 (09:37→20:58)
[2018-11-19] MEDS: TBO-FILGRASTIM 300 MCG/0.5 ML ML SC (09:46)
[2018-11-19] MEDS: 0.9% NaCl Peripheral Flush Adult/Peds IV (12:07)
[2018-11-19] MEDS: 0.9% Normal Saline 1,000 ML 100 ML IV (12:08)
[2018-11-19 12:45] LABS: Bedside Glucose 120 mg/dL (70-110)
--- NOTE | 2018-11-19 14:03 | PCM.PN.HOSP ---
Patient Problems: Active and Suspected Problems Immunosuppression due to drug therapy (Acute) Pancytopenia with fever (Acute) Septic shock (Acute) UTI (urinary tract infection) (Acute) Subjective: Patient was seen and examined. She feels much improved. No more diarrhea. She is been able to have a regular breakfast. Denies any fever or chills. No bleeding from any orifices. Objective: Physical exam: General: Alert, Oriented x3, Cooperative, No apparent distress HEENT: Atraumatic, PERRLA, EOMI, Normocephalic, - - alopecia, oral thrush Neck: Supple Lungs: Clear to auscultation, Normal air movement Cardiovascular: Regular rate, Regular Rhythm, Normal S1, Normal S2, No murmurs, Tachycardic, - - Left sided medport without erythema Abdomen: Bowel Sounds Present, Soft, Non Tender, Non-Distended Extremities: No edema Skin: No rashes, No breakdown Musculoskeletal: No Tenderness to Palpation of Joints or Extremities Neurological: Cranial nerves II-XII grossly intact Psych/Mental Status: Normal Affect, Appropriate Vitals/I&O's: Vital Signs Temp Pulse Resp BP Pulse Ox 98.7 F 104 H 16 142/85 H 98 11/19/18 09:11 11/19/18 11:01 11/19/18 09:11 11/19/18 09:11 11/19/18 09:11 Oxygen Delivery Method Room Air Weight: 55.6 kg Body Mass Index (BMI) 20.1 Intake and Output for Last 24 Hours 11/17/18 11/18/18 11/19/18 23:59 23:59 23:59 Intake Total 3998.96 / 4048.96 3907.91 / 3907.91 431.67 / 431.67 Output Total 350 / 350 Balance 3648.96 / 3698.96 3907.91 / 3907.91 431.67 / 431.67 Microbiology Past 72 Hours 11/16/18 13:45 Blood Culture (Wb) #2 - Other Blood Culture - Final Presumptive E. coli 11/16/18 14:35 Blood Culture (Wb) - Anticubital Left Blood Culture - Final Escherichia coli 11/17/18 09:30 Blood Culture (Wb) - Anticubital Right Blood Culture - Preliminary No growth in 48 hours. 11/17/18 10:35 Blood Culture (Wb) - Anticubital Left Blood Culture - Preliminary No growth in 48 hours. 11/16/18 14:32 Urine, Random Urine Culture - Final Presumptive E. coli 11/17/18 10:25 Stool Enteric Bacteriology - Final 11/17/18 10:25 Stool C. difficile DNA Amplification - Final Laboratory Results 11/18/18 16:49: POC Glucose 135 H 11/18/18 22:10: POC Glucose 125 H 11/19/18 04:05: WBC 1.2 L*, RBC 3.85 L, Hgb 8.3 L, Hct 24.7 L, MCV 64.2 L, MCH 21.6 L, MCHC 33.6, RDW Std Deviation 43.9, RDW Coeff of Kimberly 20.3 H, Plt Count 26 L*, Immature Gran % (Auto) 0.000, Neut % (Auto) 70.5 H, Lymph % (Auto) 18.9 L, Bleckley % (Auto) 9.0, Eos % (Auto) 0.0, Baso % (Auto) 1.6 H, Absolute Neuts (auto) 0.9 L, Absolute Lymphs (auto) 0.23 L, Nucleated RBC % 0, Differential Comment , Diff Path Review May foll, Anisocytosis 2+ 11/19/18 04:05: Sodium 143, Potassium 3.4 L, Chloride 116 H, Carbon Dioxide 18.0 L, BUN 9, Creatinine 0.62, Estim Creat Clear Calc 91.05, Est GFR (MDRD) Af Amer 129, Est GFR (MDRD) Non-Af 107, BUN/Creatinine Ratio 14.5, Glucose 105, Calcium 7.7 L, Phosphorus 3.0, Albumin 1.9 L 11/19/18 06:46: POC Glucose 111 H 11/19/18 12:06: POC Glucose 120 H Current Medications Acetaminophen (Tylenol) 650 mg PO Q4H PRN PRN PRN Reason: Mild Pain (1-3)/Temp > 100.7 F Last Admin: 11/18/18 13:45 Dose: 650 mg Documented by: Dextrose (D50w Syringe) 0 gm IV X1 PRN; Protocol PRN Reason: Hypoglycemia Glucagon () 1 mg IM .X1 PRN PRN Reason: Hypoglycemia Heparin Sodium (Beef Lung) () 50 units IV UD PRN PRN Reason: HEPARIN FLUSH Sodium Chloride () 1,000 mls @ 100 mls/hr IV .Q10H [facility] Last Admin: 11/19/18 12:08 Dose: 100 mls/hr Documented by: Meropenem 1 gm/ Sodium (Chloride) 120 mls @ 33 mls/hr IV Q8 [facility] Last Infusion: 11/19/18 09:10 Dose: Infused Documented by: Sodium Chloride () 250 mls @ 15 mls/hr IV .[id number] PRN PRN Reason: SALINE FLUSH Last Infusion: 11/18/18 02:48 Dose: 0 mls/hr Documented by: Insulin Human Lispro (Humalog Kwikpen (Bkc)) 0 unit SC ACHS DEXTER; Protocol Last Admin: 11/19/18 12:07 Dose: Not Given Documented by: Loperamide HCl (Imodium) 2 mg PO Q4H PRN PRN PRN Reason: Diarrhea Last Admin: 11/18/18 13:33 Dose: 2 mg Documented by: Nutritional Formula (Lactose Free) (Glucerna Shake) 120 ml PO 4X/DAY [facility] Last Admin: 11/19/18 09:37 Dose: Not Given Documented by: Nystatin (Nystatin) 500,000 unit PO 4X/DAY [facility] Last Admin: 11/19/18 09:40 Dose: Not Given Documented by: Potassium Phos/Sodium Phos (Neutra-Phos Packet) 1 packet PO 4X/DAY [facility] Last Admin: 11/19/18 09:37 Dose: 1 packet Documented by: Sodium Chloride () 10 - 40 ml IV UD PRN PRN Reason: SALINE FLUSH Last Admin: 11/19/18 12:07 Dose: 10 ml Documented by: Tbo-Filgrastim (Granix) 300 mcg SC DAILY [facility] Last Admin: 11/19/18 09:46 Dose: 300 mcg Documented by: Medical Necessity - Tobacco Use Smoking Status: Never smoker Assessment/Plan All Active Problems Immunosuppression due to drug therapy (Acute) Pancytopenia with fever (Acute) Septic shock (Acute) UTI (urinary tract infection) (Acute) Summary of care/Off service note: 53-year-old female with past medical history of stage II, ER/NM negative invasive ductal CA of the right breast, status post neoadjuvant chemotherapy, chronic hep B carrier, on treatment who presents 7 days after her chemotherapy with fever and dysuria has been managed as septic shock/neutropenic fever/E. coli bacteremia/E. coli UTI. 1. Septic shock secondary to E. coli UTI/neutropenia, resolved Blood pressures have remained stable. Patient is clinically improved Blood cultures growing E. coli, likely source is E. coli UTI Repeat blood cultures are negative On IV meropenem(day 3), ID consulted, will likely be switched to oral medication tomorrow We will continue on meropenem for today pending switch tomorrow 2. E. coli UTI, management as an #1, kidney ultrasound is unremarkable, On Meropenem 3. Neutropenic fever, status post chemotherapy 8 days ago, improved T-max was 101.7, absolute neutrophil count is 900, WBC count is 1.2; increased from 0.2 On Granix, oncology following, will follow with daily CBCD 4. Thrombocytopenia, drop in platelets from 94-26, no signs of active bleeding, Previous PT/PTT/fibrinogen were negative for DIC Discussed with oncology, will repeat PT/PTT/fibrinogen/d-dimer/LDH 4 Ts score for possible MICHELLE is 4; not on heparin in this admission, currently admitted less than a month ago and received heparin HIT antibody sent, will hold off starting on any anticoagulation 5. Hypokalemia, replaced, recheck in am 6. Acute diarrhea, C. diff, enteric panel negative, Resolved after dose of Imodium 7. Acute hypophosphatemia, replaced 8. Anemia/Pancytopenia secondary to chemotherapy, on Granix HB is 9.0, s/p 1 unit pRBC, Platelets are wore, will continue to monitor, 9. Oral thrush, on nystatin 10. Invasive ductal breast CA, on chemotherapy 11. Chronic hepatitis B carrier, on treatment 12. DVT PPx- SCDs Code Visit Inpatient E&M: 80599 Subs Hosp L2
[2018-11-19 14:23] LABS: Fibrinogen 706 mg/dl (203-444); International Normalized Ratio 1.1; Partial Thromboplast Time 37.4 Seconds (24.1-36.2); Prothrombin Time (Protime)PT. 14.3 SECONDS (11.7-14.9)
[2018-11-19 14:31] LABS: LDH 166 U/L (84-246)
[2018-11-19 14:40] LABS: D-Dimer Quantitative (DVT/PE) 2.91 FEU/ug/m (0.27-0.49)
[2018-11-19] MEDS: Acetaminophen 325 MG Tablet 650 MG PO (15:17)
[2018-11-19] MEDS: Glucerna Shake 120 ML LIQUID PO ×2 (15:17→20:59)
[2018-11-19 17:25] LABS: Bedside Glucose 123 mg/dL (70-110)
[2018-11-19 21:06] LABS: Bedside Glucose 102 mg/dL (70-110)
[2018-11-20] VITALS (10 sets, daily range): BP systolic 130–137; BP diastolic 68–84; PULSE 102–113; RESP 16–18; TEMP 36.8–37.7; O2SAT 97–98
[2018-11-20] MEDS: 0.9% Normal Saline 1,000 ML 100 ML IV ×2 (04:15→18:23)
[2018-11-20] MEDS: 0.9% NaCl Peripheral Flush Adult/Peds IV (05:04)
[2018-11-20 05:28] LABS: Albumin, Serum 1.9 g/dL (3.2-5.0); BUN 6 mg/dL (7-18); BUN/Creat Ratio 9.9 RATIO (10-20); Calcium,Total 7.9 mg/dL (8.5-10.1); Chloride 114 mmol/L (98-107); Creatinine, Serum 0.61 mg/dL (0.55-1.02); EST Glomerular Filtration Rate 109 mL/min (>60); Est Glom Filt Rate - Afr Amer 132 mL/min (>60); Estimated Creatinine Clearance 94.37 ml/min; Glucose 107 mg/dL (74-106); Phosphorus 3.1 mg/dL (2.5-4.9); Potassium 3.5 mmol/L (3.5-5.1); Sodium Level 143 mmol/L (136-145)
[2018-11-20] MEDS: Insulin Lispro 100 UNIT/ML INSULN.PEN SC (06:52)
[2018-11-20 06:53] LABS: Hemoglobin 8.3 g/dL (12.0-15.0); Mean Corp Hgb Conc 33.2 g/dL (32-36); Mean Corpuscular Hgb 21.4 pg (27.0-32.0); Mean Corpuscular Volume 64.4 fL (81-99); POSITIVE COUNT YES; POSITIVE DIFFERENTIAL YES; POSITIVE MORPHOLOGY YES; Platelet Count 34 K/mm3 (150-450); RBC Distribution Width CV 20.5 % (11.6-14.6); RBC Distribution Width SD 44.1 fl (35.1-43.9); Red Blood Count 3.88 M/mm3 (4.2-5.4); White Blood Count 3.5 K/mm3 (4.4-11.0)
[2018-11-20 07:16] LABS: Differential Indicated MANUAL DIFF
[2018-11-20 07:26] LABS: Bedside Glucose 159 mg/dL (70-110)
[2018-11-20 07:39] LABS: Lymphocyte 7 % (19-41); Monocyte 9 % (0-10); Myelocyte 1 (0-0); Neutrophil-Segmented 83 % (47-70); Total Cells Counted 100 (MANUAL DIFF)
[2018-11-20 07:40] LABS: Hypochromasia 2+; Microcytosis 3+; Platelet Estimate MKD DEC (ADEQ)
[2018-11-20 07:41] LABS: Absolute Lymphocyte Count 0.24 X10^3/uL (0.83-4.51); Lymphocyte # 0.24 X10^3/ul (4.0)
[2018-11-20 07:42] LABS: Absolute Neutrophil Count 2.9 X10^3/uL (2.0-7.7)
[2018-11-20] MEDS: ENTECAVIR 1 MG PO (10:52)
[2018-11-20] MEDS: TBO-FILGRASTIM 300 MCG/0.5 ML ML SC (10:52)
[2018-11-20] MEDS: Na Biphos/Potassium Phosphate PACKET 1 PACKET PO ×4 (10:53→22:10)
[2018-11-20 11:21] LABS: Bedside Glucose 108 mg/dL (70-110)
[2018-11-20] MEDS: Acetaminophen 325 MG Tablet 650 MG PO (12:32)
--- NOTE | 2018-11-20 12:46 | PCM.HP.ID ---
Problem List (1) Pancytopenia with fever Status: Acute Reason for Consult: bacteremia Consulted by: Dr. Astudillo History of Present Illness: The patient is a 53 year old F with breast cancer, last chemo about a week prior via L chest port, developed fever, shakes, dysuria around 11/14. Sx worsened, came to ED 11/16, found to be pancytopenic with fever to 103. Admitted on meropenem after doses of vanc and ceftriaxone. UCx and bcx with ecoli. Counts now recovering, feeling better, fever improved but not resolved. No issues with port. at bedside provided additional history. No abd pain, no vomiting or diarrhea, some nausea. Full ROS performed and neg except as noted above. - Medical History Past Medical History (Chronic Problems): Chronic Problems Breast cancer (Chronic) Hepatitis B carrier (Chronic) Allergies/Adverse Reactions: Allergies No Known Allergies Allergy (Verified 11/16/18 12:38) Home Medications: Ambulatory Orders Medication Instructions Recorded metFORMIN HCl [Glucophage] 500 mg PO BIDCM 07/04/13 Entecavir 1 tab PO DAILY 10/05/18 Semaglutide [Ozempic] 1 mg SQ TU 10/05/18 Acetaminophen [Tylenol Extra 1,000 mg PO Q6H PRN PRN 11/16/18 Strength] - Social History Tobacco Use: non-smoker Vital Signs Temp Pulse Resp BP Pulse Ox 98.3 F 102 H 18 137/79 H 98 11/20/18 09:00 11/20/18 09:00 11/20/18 09:00 11/20/18 09:00 11/20/18 09:08 Oxygen Delivery Method Room Air Weight: 55.8 kg Body Mass Index (BMI) 20.1 Microbiology Past 72 Hours 11/16/18 13:45 Blood Culture - Final Blood Culture (Wb) #2 - Other Escherichia coli 11/16/18 14:35 Blood Culture - Final Blood Culture (Wb) - Anticubital Left Escherichia coli 11/17/18 09:30 Blood Culture - Preliminary Blood Culture (Wb) - Anticubital Right No growth in 48 hours. 11/17/18 10:35 Blood Culture - Preliminary Blood Culture (Wb) - Anticubital Left No growth in 48 hours. 11/16/18 14:32 Urine Culture - Final Urine, Random Presumptive E. coli 11/17/18 10:25 Enteric Bacteriology - Final Stool 11/17/18 10:25 C. difficile DNA Amplification - Final Stool Laboratory Tests Past 24 Hrs 11/19/18 11/19/18 11/19/18 13:56 13:56 13:56 WBC RBC Hgb Hct MCV MCH MCHC RDW Std Deviation RDW Coeff of Kimberly Plt Count Neut % (Auto) Absolute Neuts (auto) Absolute Lymphs (auto) Total Counted Neutrophils % (Manual) Lymphocytes % (Manual) Monocytes % (Manual) Myelocytes % Diff Path Review Platelet Estimate Hypochromasia Microcytosis PT 14.3 INR 1.1 APTT 37.4 H Fibrinogen 706 H D-Dimer Quant (PE/DVT) 2.91 H* Sodium Potassium Chloride Carbon Dioxide BUN Creatinine Estim Creat Clear Calc Est GFR (MDRD) Af Amer Est GFR (MDRD) Non-Af BUN/Creatinine Ratio Glucose Calcium Phosphorus Lactate Dehydrogenase 166 Albumin Heparin-induced Plt Ab Pending 11/20/18 11/20/18 05:00 05:00 WBC 3.5 L RBC 3.88 L Hgb 8.3 L Hct 25.0 L MCV 64.4 L MCH 21.4 L MCHC 33.2 RDW Std Deviation 44.1 H RDW Coeff of Kimberly 20.5 H Plt Count 34 L* Neut % (Auto) Not Reportable Absolute Neuts (auto) 2.9 Absolute Lymphs (auto) 0.24 L Total Counted 100 Neutrophils % (Manual) 83 H Lymphocytes % (Manual) 7 L Monocytes % (Manual) 9 Myelocytes % 1 H Diff Path Review May foll Platelet Estimate MKD DEC Hypochromasia 2+ Microcytosis 3+ PT INR APTT Fibrinogen D-Dimer Quant (PE/DVT) Sodium 143 Potassium 3.5 Chloride 114 H Carbon Dioxide 20.0 L BUN 6 L Creatinine 0.61 Estim Creat Clear Calc 94.37 Est GFR (MDRD) Af Amer 132 Est GFR (MDRD) Non-Af 109 BUN/Creatinine Ratio 9.9 L Glucose 107 H Calcium 7.9 L Phosphorus 3.1 Lactate Dehydrogenase Albumin 1.9 L Heparin-induced Plt Ab - Other Studies Radiology: [] reviewed Other Studies: [] Route of nutrition/ use of supplements: [] Nutritional Intake: [] IV Site: [] King Catheter: [] - Physical Exam General: Alert, Oriented x3, Cooperative, No apparent distress HEENT: Atraumatic, PERRLA, EOMI Neck: Supple, No Nodes Lungs: Clear to auscultation, Normal air movement Cardiovascular: Regular rate, Regular Rhythm, No murmurs Abdomen: Soft, Non Tender, Non-Distended, - - no flank pain Extremities: No edema Skin: No rashes IV Site: Central Line, without redness Musculoskeletal: No Tenderness to Palpation of Joints or Extremities Neurological: Cranial nerves II-XII grossly intact - Assessment/Plan Antibiotics: [] Assessment/Plan: [] Active and Suspected Problems Immunosuppression due to drug therapy (Acute) Pancytopenia with fever (Acute) UTI (urinary tract infection) (Acute) neutropenic fever due to ecoli bacteremia from urinary source after recent chemo - overall much improved, no longer neutropenic. Narrow abx to cefazolin. Plan on home with po abx in next day or so. If fever does not resolve, next step would be renal u/s. Will follow, thank you, d/w Dr. Astudillo.
[2018-11-20 13:34] LABS: Pathologist Review Reviewed
[2018-11-20 13:39] LABS: Pathologist Review Reviewed
[2018-11-20 13:43] LABS: Pathologist Review Reviewed
--- NOTE | 2018-11-20 14:32 | PN_ITS ---
Patient Problems: Active and Suspected Problems Immunosuppression due to drug therapy (Acute) Pancytopenia with fever (Acute) UTI (urinary tract infection) (Acute) Subjective: Day #5 antibiotics The patient is a 53-year-old female with a past medical history of diabetes mellitus type 2, Hep B carrier(currently on tx for Hep B) and malignant neoplasm of the upper outer quadrant of the right breast which is estrogen receptor negative. She presented to the emergency department at [facility] on 11/16/2018 complaining of fever. She was 7 days post 4th cycle of Adriamycin and cyclophosphamide. Vital signs at presentation to the emergency room were temperature 104.4 ?F, pulse rate 132, blood pressure 120/61, respiratory rate 17 and she was 96% saturated on room air. CBC was remarkable for a low white blood cell count at 0.2, low hemoglobin of 8.4 and low platelets of 94,000. The MCV was 63.1 but the RDW standard deviation was normal at 37. BMP showed a low sodium at 133, low potassium at 3.3, BUN of 20 and a creatinine of 1.03. Random glucose was 217. Phosphorus was low at 1.5. A UA had positive leukocyte esterase and positive nitrite. There were also ketones present. Lactic acid was 1.8. She was admitted with a diagnosis of neutropenic fever secondary to suspected urinary tract infection. She was started on imipenem and blood and urine cultures were ordered. Granix was started. 2 of 2 blood cultures at admission were positive for E. coli which was pansensitive. Urine culture was also positive for E. coli. Repeat blood culture on 11/17/2018 had no growth in 48 hours. She was seen in consultation by Dr. John on 11/20/2018 and the antibiotics were de-escalated and she is currently on cefazolin. All events of the past 24 hours of been reviewed. She continues to have fevers and the T-max in the past 24 hours was 101.3 ?F. Vital signs are stable. Oral intake is poor. All lab was personally reviewed. Serum bicarb is up to 20 and the potassium is 3.5 with sodium of 143. BUN is 6 with a creatinine of 0.61. White blood cell count today is 3.5 and the absolute neutrophil count is 2905. Hemoglobin is stable at 8.3 and platelets are down to 34,000. She is complaining of decreased appetite. She denies nausea/vomiting/abdominal pain. She denies palpitations but the HR is consistently in the 120's. No ectopy on telemetry. She is sleeping well at night. Denies lightheadedness, CP, SOB - Physical Exam General: Alert, Oriented x3, Cooperative, No apparent distress HEENT: Atraumatic, PERRLA, EOMI, Normocephalic Oral: Dry Mucosa Neck: Supple, No Nodes, Trachea Midline Lungs: Clear to auscultation Cardiovascular: Regular Rhythm, Normal S1, Normal S2, No murmurs, No Ectopic Activity, No rub noted, No Gallop, Tachycardic Abdomen: Bowel Sounds Present, Soft, Non Tender, Non-Distended Extremities: No clubbing, No cyanosis, No edema, Peripheral Pulses Normal Skin: No rashes, No breakdown Neurological: Cranial nerves II-XII grossly intact, Neuro grossly intact Psych/Mental Status: Normal Affect, Appropriate Vital Signs Temp Pulse Resp BP Pulse Ox 98.3 F 105 H 18 137/79 H 98 11/20/18 09:00 11/20/18 11:01 11/20/18 09:00 11/20/18 09:00 11/20/18 09:08 Oxygen Delivery Method Room Air Weight: 123 lb 0.287 oz Body Mass Index (BMI) 20.1 Intake and Output for Last 24 Hours 11/18/18 11/19/18 11/20/18 23:59 23:59 23:59 Intake Total 3907.91 / 3907.91 1419.74 / 1419.74 993.60 / 993.60 Balance 3907.91 / 3907.91 1419.74 / 1419.74 993.60 / 993.60 Microbiology Past 72 Hours 11/16/18 13:45 Blood Culture - Final Blood Culture (Wb) #2 - Other Escherichia coli 11/16/18 14:35 Blood Culture - Final Blood Culture (Wb) - Anticubital Left Escherichia coli 11/17/18 09:30 Blood Culture - Preliminary Blood Culture (Wb) - Anticubital Right No growth in 48 hours. 11/17/18 10:35 Blood Culture - Preliminary Blood Culture (Wb) - Anticubital Left No growth in 48 hours. 11/16/18 14:32 Urine Culture - Final Urine, Random Presumptive E. coli 11/17/18 10:25 Enteric Bacteriology - Final Stool 11/17/18 10:25 C. difficile DNA Amplification - Final Stool Laboratory Tests Past 24 Hrs 11/17/18 11/18/18 11/19/18 04:05 05:30 04:05 WBC RBC Hgb Hct MCV MCH MCHC RDW Std Deviation RDW Coeff of Kimberly Plt Count Neut % (Auto) Absolute Neuts (auto) Absolute Lymphs (auto) Total Counted Neutrophils % (Manual) Lymphocytes % (Manual) Monocytes % (Manual) Myelocytes % Diff Path Review Reviewed Reviewed Reviewed Platelet Estimate Hypochromasia Microcytosis PT INR APTT Fibrinogen D-Dimer Quant (PE/DVT) Sodium Potassium Chloride Carbon Dioxide BUN Creatinine Estim Creat Clear Calc Est GFR (MDRD) Af Amer Est GFR (MDRD) Non-Af BUN/Creatinine Ratio Glucose Calcium Phosphorus Albumin 11/19/18 11/20/18 11/20/18 13:56 05:00 05:00 WBC 3.5 L RBC 3.88 L Hgb 8.3 L Hct 25.0 L MCV 64.4 L MCH 21.4 L MCHC 33.2 RDW Std Deviation 44.1 H RDW Coeff of Kimberly 20.5 H Plt Count 34 L* Neut % (Auto) Not Reportable Absolute Neuts (auto) 2.9 Absolute Lymphs (auto) 0.24 L Total Counted 100 Neutrophils % (Manual) 83 H Lymphocytes % (Manual) 7 L Monocytes % (Manual) 9 Myelocytes % 1 H Diff Path Review May foll Platelet Estimate MKD DEC Hypochromasia 2+ Microcytosis 3+ PT 14.3 INR 1.1 APTT 37.4 H Fibrinogen 706 H D-Dimer Quant (PE/DVT) 2.91 H* Sodium 143 Potassium 3.5 Chloride 114 H Carbon Dioxide 20.0 L BUN 6 L Creatinine 0.61 Estim Creat Clear Calc 94.37 Est GFR (MDRD) Af Amer 132 Est GFR (MDRD) Non-Af 109 BUN/Creatinine Ratio 9.9 L Glucose 107 H Calcium 7.9 L Phosphorus 3.1 Albumin 1.9 L POC Glucose 11/20/18 11/20/18 11/19/18 11:00 06:51 20:58 POC Glucose 108 159 H 102 11/19/18 17:08 POC Glucose 123 H Medical Necessity - Tobacco Use Smoking Status: Never smoker Assessment/Plan All Active Problems Immunosuppression due to drug therapy (Acute) Pancytopenia with fever (Acute) Septic shock (Acute) UTI (urinary tract infection) (Acute) Impressions 1. Neutropenic fever/severe sepsis due to UTI due to E. Coli with E. Coli bacteremia. Septic shock ruled out.....Hypotension corrected with fluid resuscitation and never required Pressors. Continue cefazolin and discharged on a p.o. antibiotic. Must be afebrile for greater than 24 hours prior to discharge. 2. Pancytopenia-more likely than not secondary to chemotherapy plus sepsis. Continue Granix until the white blood cell count is greater than 10,000. Okay to discontinue reverse isolation since the absolute neutrophil count today is 2900. Heparin-induced antibodies are pending. Fibrinogen remains high at 706 and the PT today is normal at 14.3. D-dimer is increased to 2.91. 3. Invasive ductal breast CA which is estrogen receptor negative-receiving chemotherapy from Dr. French 4. Hypokalemia/hypophosphatemia-supplemented and are now within normal limits will try Marinol 5. Poor appetite and intake with weight loss. 6. Diarrhea-C. difficile and enteric pathogen panel are negative. Diarrhea resolved with 1 dose of Imodium. 7. Oral thrush-continue nystatin swish and swallow 8. Chronic hepatitis B carrier, on treatment Code Visit Inpatient E&M: 74682 Subs Hosp L2
[2018-11-20] MEDS: Glucerna Shake 120 ML LIQUID PO ×3 (15:21→22:09)
[2018-11-20] MEDS: Cefazolin 2 GM in 0.9% Normal Saline 100 ML IV ×2 (15:21→22:08)
[2018-11-20 17:30] LABS: Bedside Glucose 125 mg/dL (70-110)
[2018-11-20 22:36] LABS: Bedside Glucose 114 mg/dL (70-110)
[2018-11-21 01:57] VITALS: BP 132/76; PULSE 98; RESP 16; TEMP 37.6; O2SAT 97
[2018-11-21 03:05] VITALS: PULSE 95
[2018-11-21 05:27] VITALS: BP 148/79; PULSE 99; RESP 17; TEMP 37.6; O2SAT 96
[2018-11-21] MEDS: 0.9% NaCl Peripheral Flush Adult/Peds IV ×2 (05:49→14:26)
[2018-11-21 06:10] LABS: Hematocrit 25.8 % (37-47); Hemoglobin 8.6 g/dL (12.0-15.0); Mean Corp Hgb Conc 33.3 g/dL (32-36); Mean Corpuscular Hgb 21.6 pg (27.0-32.0); Mean Corpuscular Volume 64.7 fL (81-99); POSITIVE COUNT YES; POSITIVE DIFFERENTIAL YES; POSITIVE MORPHOLOGY YES; Platelet Count 55 K/mm3 (150-450); RBC Distribution Width SD 44.4 fl (35.1-43.9); Red Blood Count 3.99 M/mm3 (4.2-5.4); White Blood Count 9.4 K/mm3 (4.4-11.0)
[2018-11-21 06:17] LABS: Differential Indicated MANUAL DIFF
[2018-11-21] MEDS: Cefazolin 2 GM in 0.9% Normal Saline 100 ML IV ×2 (06:20→12:48)
[2018-11-21 06:55] LABS: Bedside Glucose 124 mg/dL (70-110)
[2018-11-21 07:03] LABS: Lymphocyte 5 % (19-41); Metamyelocyte 1 % (0-1); Monocyte 6 % (0-10); Neutrophil-Band 4 % (0-5); Neutrophil-Segmented 84 % (47-70); Total Cells Counted 100 (MANUAL DIFF)
[2018-11-21 07:07] LABS: Anisocytosis 1+; Hypochromasia 1+; Microcytosis 1+; Polychromasia 1+
[2018-11-21 07:08] LABS: Platelet Estimate MOD DEC (ADEQ)
[2018-11-21 07:09] LABS: Reactive Lymphocyte 1+
[2018-11-21 07:11] LABS: Absolute Lymphocyte Count 0.47 X10^3/uL (0.83-4.51); Absolute Neutrophil Count 8.3 X10^3/uL (2.0-7.7)
[2018-11-21 07:17] VITALS: PULSE 98
[2018-11-21] MEDS: Dronabinol 2.5 MG Capsule PO (08:15)
--- NOTE | 2018-11-21 08:29 | RAD_ITS ---
STUDY: X-RAY CHEST REASON FOR EXAM: Female, 53 years old. Cough TECHNIQUE: PA and lateral views of the chest. COMPARISON: 11/16/2018 FINDINGS: Stable appearance of a left subclavian Port-A-Cath The lungs are clear and expanded. There is no demonstrated pleural abnormality. Normal size heart. Normal mediastinum and homa. Normal visualized pulmonary arteries. Normal visualized aortic arch and descending thoracic aorta. Normal visualized thoracic spine. Normal visualized ribs, clavicles, and shoulders. There is no demonstrated abnormality of the visualized soft tissue structures of the upper abdomen. RAD/Chest PA and Lateral IMPRESSION: Normal x-ray examination of the chest. Electronically Signed: Jorge Coles MD at 12:19 EDT , Service support ,
--- NOTE | 2018-11-21 08:36 | PN_ITS ---
Patient Problems: Active and Suspected Problems Immunosuppression due to drug therapy (Acute) Pancytopenia with fever (Acute) UTI (urinary tract infection) (Acute) Subjective: All events of the past 24 hours of been reviewed. T-max on 11/20/2018 was 99.8 ?F. Temp this a.m. was 99.7. Blood pressure is stable. Tachycardia has resolved. Current heart rate is in the 90s. Telemetry shows normal sinus rhythm with no ectopy. All lab was personally reviewed. The white blood cell count today is 9.4 with 84% neutrophils and 2% bands. Blood sugars are well controlled. She is c/o a cough that bothered her last night. It is dry. She felt as though something was stuck in her Denies painful swallowing, sore throat, chest pain, SOB. She is feeling better today and is very alert and talkative today. Her was present in the room and they had questions about the Marinol....I explained it was an appetite stimulant and we discussed the potential side effects. they have agreed to try it. - Physical Exam General: Alert, Cooperative, No apparent distress, - - looks more energetic and alert today Oral: Moist Mucosa, No Gingival or Mucosal Lesions/ Ulcerations Neck: Supple, No Nodes, No Nuchal Rigidity Lungs: Rales - in the bases with a rare inspiratory wheeze Cardiovascular: Regular rate, Regular Rhythm, Normal S1, Normal S2, No murmurs, No rub noted, No Gallop Abdomen: Bowel Sounds Present, Soft, Non Tender, Non-Distended, - - No guarding with palpation Extremities: No edema, No Calf Tenderness Skin: No rashes Neurological: Cranial nerves II-XII grossly intact, Neuro grossly intact Psych/Mental Status: Normal Affect - smiling today and laughing, Appropriate Vital Signs Temp Pulse Resp BP Pulse Ox 99.7 F H 98 17 148/79 H 96 11/21/18 05:27 11/21/18 07:17 11/21/18 05:27 11/21/18 05:27 11/21/18 05:27 Oxygen Delivery Method Room Air Weight: 125 lb 3.561 oz Body Mass Index (BMI) 20.1 Intake and Output for Last 24 Hours 11/19/18 11/20/18 11/21/18 23:59 23:59 23:59 Intake Total 1419.74 / 1419.74 3426.93 / 3426.93 891.67 / 891.67 Balance 1419.74 / 1419.74 3426.93 / 3426.93 891.67 / 891.67 Microbiology Past 72 Hours 11/16/18 13:45 Blood Culture - Final Blood Culture (Wb) #2 - Other Escherichia coli 11/16/18 14:35 Blood Culture - Final Blood Culture (Wb) - Anticubital Left Escherichia coli 11/17/18 09:30 Blood Culture - Preliminary Blood Culture (Wb) - Anticubital Right No growth in 48 hours. 11/17/18 10:35 Blood Culture - Preliminary Blood Culture (Wb) - Anticubital Left No growth in 48 hours. 11/16/18 14:32 Urine Culture - Final Urine, Random Presumptive E. coli Laboratory Tests Past 24 Hrs 11/17/18 11/18/18 11/19/18 04:05 05:30 04:05 WBC RBC Hgb Hct MCV MCH MCHC RDW Std Deviation RDW Coeff of Kimberly Plt Count Neut % (Auto) Absolute Neuts (auto) Absolute Lymphs (auto) Total Counted Neutrophils % (Manual) Band Neutrophils % Lymphocytes % (Manual) Monocytes % (Manual) Metamyelocytes % Diff Path Review Reviewed Reviewed Reviewed Reactive Lymphocytes Platelet Estimate Polychromasia Hypochromasia Anisocytosis Microcytosis Iron TIBC Iron Saturation Ferritin Vitamin B12 Folate 11/20/18 11/20/18 11/21/18 05:00 05:00 05:45 WBC 9.4 RBC 3.99 L Hgb 8.6 L Hct 25.8 L MCV 64.7 L MCH 21.6 L MCHC 33.3 RDW Std Deviation 44.4 H RDW Coeff of Kimberly 21.0 H Plt Count 55 L Neut % (Auto) Not Reportable Absolute Neuts (auto) 8.3 H Absolute Lymphs (auto) 0.47 L Total Counted 100 Neutrophils % (Manual) 84 H Band Neutrophils % 4 Lymphocytes % (Manual) 5 L Monocytes % (Manual) 6 Metamyelocytes % 1 Diff Path Review May foll Reactive Lymphocytes 1+ Platelet Estimate MOD DEC Polychromasia 1+ Hypochromasia 1+ Anisocytosis 1+ Microcytosis 1+ Iron Pending TIBC Pending Iron Saturation Pending Ferritin Pending Vitamin B12 Pending Folate Pending POC Glucose 11/21/18 11/20/18 11/20/18 06:48 22:12 16:37 POC Glucose 124 H 114 H 125 H 11/20/18 11:00 POC Glucose 108 Medical Necessity - Tobacco Use Smoking Status: Never smoker Assessment/Plan All Active Problems Immunosuppression due to drug therapy (Acute) Pancytopenia with fever (Acute) Septic shock (Acute) UTI (urinary tract infection) (Acute) Impressions 1. Neutropenic fever/severe sepsis due to UTI due to E. Coli with E. Coli bacteremia. Septic shock ruled out.....Hypotension corrected with fluid resuscitation and never required Pressors. Continue cefazolin and discharged on a p.o. antibiotic. Must be afebrile for greater than 24 hours prior to disc harge. 2. Pancytopenia-more likely than not secondary to chemotherapy plus sepsis. Continue Granix until the white blood cell count is greater than 10,000. Okay to discontinue reverse isolation since the absolute neutrophil count today is 2900. Heparin-induced antibodies are pending. Fibrinogen remains high at 706 and the PT today is normal at 14.3. D-dimer is increased to 2.91. 3. Invasive ductal breast CA which is estrogen receptor negative-receiving chemotherapy from Dr. French 4. Hypokalemia/hypophosphatemia-supplemented and are now within normal limits will try Marinol 5. Poor appetite and intake with weight loss. 6. Diarrhea-C. difficile and enteric pathogen panel are negative. Diarrhea resolved with 1 dose of Imodium. 7. Oral thrush-continue nystatin swish and swallow 8. Chronic hepatitis B carrier, on treatment IS, CXR Continue the Granix until the WBC is > 10,000 Recheck the lab in the AM Check B12,folate, iron studies today
[2018-11-21 09:01] LABS: Ferritin 635 ng/mL (8-252); Iron 19 ug/dL (50-170); Iron Binding Capacity,Total 147 ug/dL (250-450); PERCENT IRON SATURATION 12.9 % (15.0-55.0)
[2018-11-21] MEDS: Na Biphos/Potassium Phosphate PACKET 1 PACKET PO ×2 (10:30→12:49)
[2018-11-21] MEDS: ENTECAVIR 1 MG PO (10:31)
[2018-11-21] MEDS: TBO-FILGRASTIM 300 MCG/0.5 ML ML SC (10:32)
--- NOTE | 2018-11-21 10:32 | PCM.PN.ID ---
Patient Problems: Active and Suspected Problems Immunosuppression due to drug therapy (Acute) Pancytopenia with fever (Acute) UTI (urinary tract infection) (Acute) Subjective: Feeling better, no fever, no abd pain - Physical Exam General: Alert, Cooperative, No apparent distress Lungs: Clear to auscultation, Normal air movement Cardiovascular: Regular rate, Regular Rhythm Abdomen: Soft, Non Tender, Non-Distended Skin: No rashes Vital Signs Temp Pulse Resp BP Pulse Ox 99.7 F H 98 17 148/79 H 96 11/21/18 05:27 11/21/18 07:17 11/21/18 05:27 11/21/18 05:27 11/21/18 05:27 Oxygen Delivery Method Room Air Weight: 56.8 kg Body Mass Index (BMI) 20.1 Intake and Output for Last 24 Hours 11/19/18 11/20/18 11/21/18 23:59 23:59 23:59 Intake Total 1419.74 / 1419.74 3426.93 / 3426.93 891.67 / 891.67 Balance 1419.74 / 1419.74 3426.93 / 3426.93 891.67 / 891.67 Microbiology Past 72 Hours 11/16/18 13:45 Blood Culture - Final Blood Culture (Wb) #2 - Other Escherichia coli 11/16/18 14:35 Blood Culture - Final Blood Culture (Wb) - Anticubital Left Escherichia coli 11/17/18 09:30 Blood Culture - Preliminary Blood Culture (Wb) - Anticubital Right No growth in 48 hours. 11/17/18 10:35 Blood Culture - Preliminary Blood Culture (Wb) - Anticubital Left No growth in 48 hours. 11/16/18 14:32 Urine Culture - Final Urine, Random Presumptive E. coli Laboratory Tests Past 24 Hrs 11/17/18 11/18/18 11/19/18 04:05 05:30 04:05 WBC RBC Hgb Hct MCV MCH MCHC RDW Std Deviation RDW Coeff of Kimberly Plt Count Neut % (Auto) Absolute Neuts (auto) Absolute Lymphs (auto) Total Counted Neutrophils % (Manual) Band Neutrophils % Lymphocytes % (Manual) Monocytes % (Manual) Metamyelocytes % Diff Path Review Reviewed Reviewed Reviewed Reactive Lymphocytes Platelet Estimate Polychromasia Hypochromasia Anisocytosis Microcytosis Iron TIBC Iron Saturation Ferritin Vitamin B12 Folate 11/20/18 11/20/18 11/21/18 05:00 05:00 05:45 WBC 9.4 RBC 3.99 L Hgb 8.6 L Hct 25.8 L MCV 64.7 L MCH 21.6 L MCHC 33.3 RDW Std Deviation 44.4 H RDW Coeff of Kimberly 21.0 H Plt Count 55 L Neut % (Auto) Not Reportable Absolute Neuts (auto) 8.3 H Absolute Lymphs (auto) 0.47 L Total Counted 100 Neutrophils % (Manual) 84 H Band Neutrophils % 4 Lymphocytes % (Manual) 5 L Monocytes % (Manual) 6 Metamyelocytes % 1 Diff Path Review May foll Reactive Lymphocytes 1+ Platelet Estimate MOD DEC Polychromasia 1+ Hypochromasia 1+ Anisocytosis 1+ Microcytosis 1+ Iron 19 L TIBC 147 L Iron Saturation 12.9 L Ferritin 635 H Vitamin B12 Pending Folate 31.40 POC Glucose 11/21/18 11/20/18 11/20/18 06:48 22:12 16:37 POC Glucose 124 H 114 H 125 H 11/20/18 11:00 POC Glucose 108 Medical Necessity - Tobacco Use Smoking Status: Never smoker Route of nutrition/ use of supplements: [] Nutritional Intake: [] IV Site: [] King Catheter: [] - Assessment/Plan Antibiotics: [] Assessment/Plan: [] Active and Suspected Problems Immunosuppression due to drug therapy (Acute) Pancytopenia with fever (Acute) UTI (urinary tract infection) (Acute) neutropenic fever due to ecoli bacteremia from urinary source after recent chemo - overall much improved, no longer neutropenic. Narrowed abx to cefazolin. Ok for home with po duricef 1gm bid for 5 more days. Will follow, d/w Dr. Astudillo.
[2018-11-21 10:53] LABS: Vitamin B12 997 pg/mL (211-911)
--- NOTE | 2018-11-21 12:27 | PCM.DC ---
- Discharge Diagnoses Current Active Problems: Current Active and Chronic Problems Breast cancer (Chronic) Immunosuppression due to drug therapy (Acute) Pancytopenia with fever (Acute) Hepatitis B carrier (Chronic) UTI (urinary tract infection) (Acute) You will use the following diet at home:: No restrictions Your food should be the consistency of: Regular Your liquids should be the consistency of: Regular/Thin Discharge Activity: - - Activity as tolerated Call your doctor if you observe: Fever of 101 or Higher, Inability to urinate, Inability to have a bowel movement, Shortness of breath, Dizziness, Fainting spells, Swelling in the ankles, Chest pain, Calf discomfort, Uncontrolled pain, - - Call your PCP if severe diarrhea ( > 5 stools a day), painful sores in the mouth, painful swallowing, rash or itching. Taking a probiotic such as Lactobacillus or Kefir can help with loose stools while taking antibiotics. Additional Instructions: 1. Make sure to take ALL of the antibiotic prescribed to you. After the antibiotic is finished you will need to have a urine culture done to make sure the infection is gone....your PCP or Dr. French can order this. 2. To keep yourself from getting infections while on chemotherapy stay away from sick people......you have to be around someone who is sick make them wear a mask or you should wear a mask. If you go out of the house into a public situation take hand porcelain enamel installer and use it prior to touching anything and after. Always wear a mask when out in public. Make sure to drink enough water to urinate at least every few hours....it helps to prevent urinary tract infections. When you wipe after a bowel movement always wipe from Front to Back. Try and drink water prior to any sexual intercourse os that you can urinate after.....this also helps prevent urinary tract infections. 3. IF you ever have increased urination, trouble getting started, burning with urination, feeling like you have to go and only going a few drops....call your doctor to get an antibiotic or to be seen in the office. 4. I have given you a prescription for Marinol to help stimulate your appetite. You will take 1 twice a day. If this works for you then ask your PCP or Dr. Recinos for a new prescription when you are running out. It was a pleasure meeting you. Take care of yourself and if you are ever in the hospital again I would be happy to take care of you. Allergies/Adverse Reactions: Allergies No Known Allergies Allergy (Verified 11/16/18 12:38) Medications to take at Discharge metFORMIN HCl [Glucophage] 500 mg PO BIDCM 07/04/13 Entecavir 1 tab PO DAILY 10/05/18 Semaglutide [Ozempic] 1 mg SQ TU 10/05/18 Acetaminophen [Tylenol Extra Strength] 1,000 mg PO Q6H PRN PRN 11/16/18 Cefadroxil 1 gm PO BID #10 tab 11/21/18 Dronabinol [Marinol] 2.5 mg PO BIDAC #60 capsule 11/21/18 Nystatin 500,000 unit PO 4X/DAY #200 ml 11/21/18 The following prescriptions were given: Cefadroxil 1 gm PO BID #10 tab Transmission Status: Pending to [facility]/pharmacy #[id number] Dronabinol [Marinol] 2.5 mg PO BIDAC #60 capsule Transmission Status: Received by [facility]/pharmacy #[id number] Nystatin 500,000 unit PO 4X/DAY #200 ml Transmission Status: Pending to [facility]pharmacy #[id number] Primary Care Physician: Brayden Sparrow DO [Primary Care Provider] - Please follow up with your Primary Care Physician in: 1 week Test Results: Test results from this visit will be discussed in further detail at your follow-up appointment, if applicable. Please Follow Up With: Conrado Recinos MD When: as previously arranged Proposed Discharge Date: 11/21/18
[2018-11-21 12:40] LABS: Bedside Glucose 94 mg/dL (70-110)
--- NOTE | 2018-11-21 12:43 | DS.PCM_ITS ---
Discharge Date and Diagnosis Date of Admission: 11/16/18 Date of Discharge: 11/21/18 - Primary Discharge Diagnosis Active and Suspected Problems Severe sepsis due to UTI in an immunocompromised host receiving chemotherapy for breast CA with neutropenia(Acute) Pancytopenia with fever (Acute) UTI (urinary tract infection) (Acute) Thrush, oral (Acute) Hypophosphatemia (Acute) Hypokalemia (Acute) - Secondary Discharge Diagnosis Chronic Problems Inanition (Chronic) Breast cancer (Chronic) Hepatitis B carrier (Chronic) Hospital Course and Treatment Imaging Results: 11/21/18 08:29 Chest PA and Lateral [RAD] Urgent Clinical Impression(s) from Imaging Studies Chest X-Ray 11/16/18 13:03 IMPRESSION: No acute abnormality is seen. Electronically Signed: Anibal Hinkle, at 15:18 EDT , Service support , Renal Ultrasound 11/17/18 13:13 IMPRESSION: Findings which may be consistent with mild nonspecific renal parenchymal disease No evidence for hydronephrosis or mass Electronically Signed: Deepak Bardales MD at 21:54 EDT , Service support , Chest X-Ray 11/21/18 08:29 IMPRESSION: Normal x-ray examination of the chest. Electronically Signed: Jorge Coles MD at 12:19 EDT , Service support , Microbiology 11/17/18 09:30 Blood Culture (Wb) - Anticubital Right Blood Culture - Final No growth in 5 days. 11/17/18 10:35 Blood Culture (Wb) - Anticubital Left Blood Culture - Final No growth in 5 days. 11/16/18 13:45 Blood Culture (Wb) #2 - Other Blood Culture - Final Escherichia coli 11/16/18 14:35 Blood Culture (Wb) - Anticubital Left Blood Culture - Final Escherichia coli 11/16/18 14:32 Urine, Random Urine Culture - Final Presumptive E. coli 09/20/19 10:25 Stool Enteric Bacteriology - Final 11/17/18 10:25 Stool C. difficile DNA Amplification - Final Dr. Conrado Recinos - oncology Dr. Los Alanis - principal android developer/pulmonary medicine Dr. Issa John-infectious disease Operations: None Procedures: None Summary of Care Provided: The patient is a 53-year-old female with a past medical history of diabetes mellitus type 2, Hep B carrier(currently on tx for Hep B) and malignant neoplasm of the upper outer quadrant of the right breast which is estrogen receptor negative. She presented to the emergency department at [facility] on 11/16/2018 complaining of fever. She was 7 days post 4th cycle of Adriamycin and cyclophosphamide. Vital signs at presentation to the emergency room were temperature 104.4 ?F, pulse rate 132, blood pressure 120/61, respiratory rate 17 and she was 96% saturated on room air. CBC was remarkable for a low white blood cell count at 0.2, low hemoglobin of 8.4 and low platelets of 94,000. The MCV was 63.1 but the RDW standard deviation was normal at 37. BMP showed a low sodium at 133, low potassium at 3.3, BUN of 20 and a creatinine of 1.03. Random glucose was 217. Phosphorus was low at 1.5. A UA had positive leukocyte esterase and positive nitrite. There were also ketones present. Lactic acid was 1.8. She was admitted with a diagnosis of neutropenic fever secondary to suspected urinary tract infection. She was started on imipenem and blood and urine cultures were ordered. Granix was started. 2 of 2 blood cultures at admission were positive for E. coli which was pansensitive. Urine culture was also positive for E. coli. Repeat blood culture on 11/17/2018 had no growth in 48 hours. She was seen in consultation by Dr. John on 11/20/2018 and the antibiotics were de-escalated and she was transitioned to cefazolin. On 11/21/2018 she was still mildly febrile with a temp of 99.8. Tachycardia had resolved. The white blood cell count was up to 9.4 with Granix and there were 84% neutrophils and 2% bands. She continued to have a dry cough. She had been started on Marinol to try to stimulate her appetite and she tolerated it without adverse reaction. she wanted to go home and Dr. John felt this was OK. He recommended Duricef 1 g twice daily for 5 more days. She was discharged home with a prescription for Marinol 2.5 mg twice daily, number 60 capsules. She was also given a prescription for nystatin swish and swallow and for cefadroxil 1 g p.o. twice daily, number 10 tablets. She was instructed to follow-up with her primary care physician in 1 week. She will follow-up with Dr. Recinos as previously arranged. - Physical Exam General: Alert, Cooperative, No apparent distress, - - looks more energetic and alert today Oral: Moist Mucosa, No Gingival or Mucosal Lesions/ Ulcerations Neck: Supple, No Nodes, No Nuchal Rigidity Lungs: Rales - in the bases with a rare inspiratory wheeze Cardiovascular: Regular rate, Regular Rhythm, Normal S1, Normal S2, No murmurs, No rub noted, No Gallop Abdomen: Bowel Sounds Present, Soft, Non Tender, Non-Distended, - - No guarding with palpation Extremities: No edema, No Calf Tenderness Skin: No rashes Neurological: Cranial nerves II-XII grossly intact, Neuro grossly intact Psych/Mental Status: Normal Affect - smiling today and laughing, Appropriate This note was generated with [employer] dictation software. It may contain incorrect words, spelling, and punctuation that were not noted in checking the note before signing. - Physical Exam Vital Signs Temp Pulse Resp BP Pulse Ox 99.7 F H 98 17 148/79 H 96 11/21/18 05:27 11/21/18 07:17 11/21/18 05:27 11/21/18 05:27 11/21/18 05:27 Oxygen Delivery Method Room Air Weight: 125 lb 3.561 oz Body Mass Index (BMI) 20.1 Intake and Output for Last 24 Hours 11/19/18 11/20/18 11/21/18 23:59 23:59 23:59 Intake Total 1419.74 / 1419.74 3426.93 / 3426.93 891.67 / 891.67 Balance 1419.74 / 1419.74 3426.93 / 3426.93 891.67 / 891.67 Microbiology Past 72 Hours 11/16/18 13:45 Blood Culture - Final Blood Culture (Wb) #2 - Other Escherichia coli 11/16/18 14:35 Blood Culture - Final Blood Culture (Wb) - Anticubital Left Escherichia coli 11/17/18 09:30 Blood Culture - Preliminary Blood Culture (Wb) - Anticubital Right No growth in 48 hours. 11/17/18 10:35 Blood Culture - Preliminary Blood Culture (Wb) - Anticubital Left No growth in 48 hours. 11/16/18 14:32 Urine Culture - Final Urine, Random Presumptive E. coli Laboratory Tests Past 24 Hrs 11/17/18 11/18/18 11/19/18 04:05 05:30 04:05 WBC RBC Hgb Hct MCV MCH MCHC RDW Std Deviation RDW Coeff of Kimberly Plt Count Neut % (Auto) Absolute Neuts (auto) Absolute Lymphs (auto) Total Counted Neutrophils % (Manual) Band Neutrophils % Lymphocytes % (Manual) Monocytes % (Manual) Metamyelocytes % Diff Path Review Reviewed Reviewed Reviewed Reactive Lymphocytes Platelet Estimate Polychromasia Hypochromasia Anisocytosis Microcytosis Iron TIBC Iron Saturation Ferritin Vitamin B12 Folate 11/20/18 11/20/18 11/21/18 05:00 05:00 05:45 WBC 9.4 RBC 3.99 L Hgb 8.6 L Hct 25.8 L MCV 64.7 L MCH 21.6 L MCHC 33.3 RDW Std Deviation 44.4 H RDW Coeff of Kimberly 21.0 H Plt Count 55 L Neut % (Auto) Not Reportable Absolute Neuts (auto) 8.3 H Absolute Lymphs (auto) 0.47 L Total Counted 100 Neutrophils % (Manual) 84 H Band Neutrophils % 4 Lymphocytes % (Manual) 5 L Monocytes % (Manual) 6 Metamyelocytes % 1 Diff Path Review May foll Reactive Lymphocytes 1+ Platelet Estimate MOD DEC Polychromasia 1+ Hypochromasia 1+ Anisocytosis 1+ Microcytosis 1+ Iron 19 L TIBC 147 L Iron Saturation 12.9 L Ferritin 635 H Vitamin B12 997 H Folate 31.40 POC Glucose 11/21/18 11/21/18 11/20/18 12:35 06:48 22:12 POC Glucose 94 124 H 114 H 11/20/18 16:37 POC Glucose 125 H Discharge Activity: - - Activity as tolerated Call your doctor if you observe: Fever of 101 or Higher, Inability to urinate, Inability to have a bowel movement, Shortness of breath, Dizziness, Fainting spells, Swelling in the ankles, Chest pain, Calf discomfort, Uncontrolled pain, - - Call your PCP if severe diarrhea ( > 5 stools a day), painful sores in the mouth, painful swallowing, rash or itching. Taking a probiotic such as Lactobacillus or Kefir can help with loose stools while taking antibiotics. Home Medications: Medications to take at Discharge metFORMIN HCl [Glucophage] 500 mg PO BIDCM 07/04/13 Entecavir 1 tab PO DAILY 10/05/18 Semaglutide [Ozempic] 1 mg SQ TU 10/05/18 Acetaminophen [Tylenol Extra Strength] 1,000 mg PO Q6H PRN PRN 11/16/18 Cefadroxil 1 gm PO BID #10 tab 11/21/18 Dronabinol [Marinol] 2.5 mg PO BIDAC #60 cap 11/21/18 Nystatin 500,000 unit PO 4X/DAY #200 ml 11/21/18 Following Prescrptions Were Given to Patient: Cefadroxil 1 gm PO BID #10 tab Transmission Status: Received by [facility]/pharmacy #[id number] Dronabinol [Marinol] 2.5 mg PO BIDAC #60 cap Transmission Status: Received by [facility]/pharmacy #[id number] Nystatin 500,000 unit PO 4X/DAY #200 ml Transmission Status: Received by [facility]/pharmacy #[id number] Primary Care Physician: Brayden Sparrow DO [Primary Care Provider] - Please follow up with your Primary Care Physician in: 1 week Please Follow Up With: Conrado Recinos MD When: as previously arranged Disposition: Home Minutes spent on discharge:: 35 Patient Condition:: Stable Medical Necessity - Tobacco Use Smoking Status: Never smoker Tobacco Use: Non-smoker Meaningful Use Info Meaningful Use Diagnoses (Choose all that apply): None applicable Code Visit Inpatient E&M: 11238 Disch Hosp
[2018-11-21 12:54] VITALS: BP 132/74; PULSE 107; RESP 14; TEMP 37.6; O2SAT 97
[2018-11-21 14:29] LABS: Pathologist Review Reviewed
[2018-11-21 14:42] LABS: Pathologist Review Reviewed
--- NOTE | 2018-11-22 13:51 | CASEMGMT ---
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 Patient states that she is doing better, states that she has a f/u appointment scheduled and denies any issues, concerns or questions regarding aftercare instructions, medications, or f/u. States picked up her medications that she was discharged on. Denies any further recommendations on improving care at [facility]. Thanked patient for her time. Mandi Phipps RNCM
== END 2018-11-21 14:35 | disposition home or self-care (01) | DRG 871 ==
LOC: ED 13:13 → MS2 16:50 → ICU 22:26 → PCU 11-18 12:23
PROVIDERS: Hospitalist; Internal Medicine; Internal Medicine Hematology & Oncology; Admitting Provider Family Medicine; Emergency Provider Emergency Medicine; Family Provider Family Medicine; PCP Family Medicine; Visit Provider Internal Medicine
DX: A41.51 Sepsis due to Escherichia coli [E. coli] (principal); D61.810 Antineoplastic chemotherapy induced pancytopenia; R65.21 Severe sepsis with septic shock; N39.0 Urinary tract infection, site not specified; B37.0 Candidal stomatitis; R64 Cachexia; B18.1 Chronic viral hepatitis B without delta-agent; N17.9 Acute kidney failure, unspecified; D68.9 Coagulation defect, unspecified; E83.39 Other disorders of phosphorus metabolism; E87.6 Hypokalemia; Z68.20 Body mass index [BMI] 20.0-20.9, adult; C50.411 Malignant neoplasm of upper-outer quadrant of right female breast; Z17.1 Estrogen receptor negative status [ER-]; E11.9 Type 2 diabetes mellitus without complications; T45.1X5A Adverse effect of antineoplastic and immunosuppressive drugs, initial encounter; R50.81 Fever presenting with conditions classified elsewhere; B96.20 Unspecified Escherichia coli [E. coli] as the cause of diseases classified elsewhere; D70.1 Agranulocytosis secondary to cancer chemotherapy; Z79.84 Long term (current) use of oral hypoglycemic drugs; Z79.899 Other long term (current) drug therapy
CPT/HCPCS: 36415; 36591; 71046; 76770; 80048; 80053; 80069; 81001; 82248; 82607; 82728; 82746; 82962; 83540; 83550; 83605; 83615; 83735; 84100; 85014; 85018; 85025; 85379; 85384; 85610; 85730; 86022; 86850; 86900; 86901; 86920; 86922; 87040; 87077; 87086; 87088; 87186; 87493; 87506; 93005; 97110; 97116; 97161; 97165; 97530; 97535; 99285; J2185; J7030; J7040; J7050; P9040; A4216; J1447

== ENCOUNTER → 2019-01-09 11:52 | Outpatient (CLI) | payer BC, SELFPAY ==
[2018-11-16 17:29] VITALS: BMI 20.1
[2019-01-09 12:07] VITALS: BP 137/69; PULSE 100; RESP 18; O2SAT 100; BMI 18.6
== END ==
PROVIDERS: Family Provider Family Medicine; PCP Family Medicine; Referring Provider Internal Medicine Hematology & Oncology; Visit Provider Internal Medicine Hematology & Oncology
DX: Z45.2 Encounter for adjustment and management of vascular access device (principal); C50.919 Malignant neoplasm of unspecified site of unspecified female breast
CPT/HCPCS: 36569

== ENCOUNTER → 2019-02-14 09:21 | Outpatient (CLI) | payer BC, SELFPAY ==
[2019-01-09 12:07] VITALS: BMI 18.6
--- NOTE | 2019-02-14 09:28 | MRI_ITS ---
STUDY: BILATERAL BREAST MR WITHOUT AND WITH CONTRAST REASON FOR EXAM: Female, 53 years old. Right breast cancer. MRI for restaging. Most recent chemotherapy January 31, 2019. Patient scheduled for surgery February 22, 2019. TECHNIQUE: Multi-sequence multi-echo imaging of both breasts was performed with a dedicated breast coil. T1-weighted and T2-weighted images were performed before the administration of contrast. T1-weighted images were also performed after the administration of DOTAREM 10ML IV without complications. COMPARISON: Prior breast MRI study dated August 28, 2018. FINDINGS: RIGHT BREAST: The breast tissue is scattered fibroglandular densities with no background enhancement. The mass present on the prior MRI study is no longer present or visible. There are no abnormal enhancing masses or areas of non-mass enhancement in the right breast. LEFT BREAST: The breast tissue is scattered fibroglandular densities with no background enhancement. There are no abnormal enhancing masses or areas of non-mass enhancement in the left breast. There are no enlarged or abnormal lymph nodes. There is no abnormality in the visualized regions of the chest or liver. MRI/Breast Bilateral W/O and W IMPRESSION: Resolution of mass in right breast present on prior study. No abnormality on the present MRI breast with contrast. CATEGORY: BIRADS Category 6: Known Biopsy-Proven Malignancy - Appropriate Action Should Be Taken. A letter regarding these results will be sent to the patient by the facility within 30 days. Electronically Signed: Kolton Moya MD at 12:16 EST , Service support ,
== END ==
PROVIDERS: Family Provider Student in an Organized Health Care Education/Training Program; PCP Student in an Organized Health Care Education/Training Program; Referring Provider Internal Medicine Hematology & Oncology; Visit Provider Internal Medicine Hematology & Oncology
DX: C50.111 Malignant neoplasm of central portion of right female breast (principal); Z17.1 Estrogen receptor negative status [ER-]
CPT/HCPCS: 77049; A9575; C8908

== ENCOUNTER 2020-03-03 18:26 | Observation (INO) | payer BC, SELFPAY ==
[2019-01-09 12:07] VITALS: BMI 18.6
[2020-03-03 18:28] VITALS: BP 104/74; PULSE 87; RESP 16; TEMP 36.1; O2SAT 97; BMI 22.3
--- NOTE | 2020-03-03 18:44 | CT_ITS ---
STUDY: CT ABDOMEN AND PELVIS WITH CONTRAST REASON FOR EXAM: Female, 54 years old. JAUNDICE/DISTENTION/HX BREAST CANCER. On antibiotics for UTI RADIATION DOSAGE (If Supplied By Facility): CTDIvol = ( 9.24 ) mGy, DLP = ( 475.53 ) mGycm TECHNIQUE: Transaxial images were obtained from the dome of the diaphragm to the symphysis pubis without oral contrast. IV 100mL Isovue-300 was administered. Sagittal and coronal images were reconstructed. Individualized dose optimization techniques were used for this CT. COMPARISON: None. FINDINGS: There are bilateral pleural effusions associated with dependent consolidation within the lower lobes. The visualized portions of the heart are within normal limits. There is free fluid throughout the abdomen and pelvis. The liver is heterogenous. There are gallstones within the gallbladder. There is gallbladder wall thickening. Normal spleen. Normal pancreas. Normal bilateral adrenal glands. Normal right kidney. Normal left kidney. Normal visualized stomach. Normal small intestine. Normal colon. The appendix is visualized and appears normal. Normal abdominal aorta. Normal inferior vena cava. Normal retroperitoneum. Normal urinary bladder. Abutting or arising from the uterine fundus there is a round 3.7 x 4.7 x 4.9 cm soft tissue focus with appearance suggestive of an subserosal fibroid. There are additional rounded similar appearing foci within the uterine fundus. There is subcutaneous edema. Normal osseous structures. CT/Abdomen/Pelvis W IV Cont ONLY IMPRESSION: Ascites. Heterogenous liver, this may be secondary to underlying hepatic dysfunction, consider MRI with contrast for further evaluation. Cholelithiasis associated with gallbladder wall thickening which may be reactive. Bilateral pleural effusions associated with dependent consolidation within the lower lobes. Fibroid uterus. Electronically Signed: Siobhan Pierce MD at 20:09 EST Tel , Service support ,
--- NOTE | 2020-03-03 18:50 | ED.DCSUM_ITS ---
History of Present Illness Chief Complaint: Abn Labs Informant: Patient Onset: Days Context: Gradual Onset Timing: Continuous Current Severity: Moderate Maximum Severity: Moderate Narrative: The patient is a 54-year-old female with medical history significant for breast cancer that was treated with lumpectomy, chemo, and radiation in 2019. She does follow with Dr. French here locally. The patient was sent home from work in early January with generalized malaise. She had an outpatient Covid test which was positive on the . She states that she seemed to recover well at home. However, she began to have some abdominal distention and urinary frequency. She did an outpatient urine through the [facility] which was concerning for infection. The patient was started on Keflex. Tomorrow will be her last day. She has noticed that over the past 10 days, she has had some increased abdominal bloating. Today, she followed up for outpatient labs. She was found to have a significantly elevated bilirubin of 12. She has had some mild abdominal pain. She denies any fevers or chills. She was scheduled for outpatient ultrasound tomorrow, but after discussion with her primary care she was sent in for further evaluation. She has no history of prior abdominal surgery. Prior similar symptoms: Yes Recent Illness/Hospitalization: No Past Medical History - Allergies and Home Meds Allergies/Adverse Reactions: Allergies No Known Allergies Allergy (Verified 01/09/19 12:12) Primary Care Physician: Lopez Reed DO [Primary Care Provider] - Prior records reviewed: Yes Past Medical History: - - Prior breast CA Surgical History: - - chemotherapy port placement in September 2018 Smoking Status: Never smoker - Family History Maternal Family History: Reports: No pertinent history Paternal Family History: Reports: No pertinent history Review of Systems General: Denies: Chills, Fever, Sweats Eyes: Denies: Visual changes - bilaterally, Diplopia ENT: Denies: Rhinorrhea, Sore throat Cardiovascular: Denies: Chest pain, Palpitations Respiratory: Denies: Dyspnea, Cough, Dyspnea on exertion Gastrointestinal: Reports: Abdominal pain, Nausea. Denies: Vomiting, Diarrhea, Melena, Hematochezia Genitourinary: Denies: Dysuria, Hematuria, Frequency Musculoskeletal: Denies: Back pain, Extremity Pain Skin: Denies: Rash, Wounds Neurological: Reports: Weakness. Denies: Headache, Numbness Physical Exam Vital Signs/Narrative: Vital Signs Temp Pulse Resp BP Pulse Ox 03/03/20 18:28 97 F L 87 16 104/74 97 Inital Vital Signs reviewed: Yes General: Well nourished, Well developed, No Acute Distress Head: Normocephalic, Atraumatic Eyes: Perrl, EOMI, Scleral icterus ENT: Moist mucous membranes, No rhinorrhea Neck: Supple, Nontender Cardiovascular: Regular rate, Regular rhythm, No murmurs Respiratory: No distress, CTA bilaterally, Chest nontender Abdomen: Soft, Nontender, Normal bowel sounds. Negative for: Guarding, Rebound tenderness Back: Nontender, Normal Inspection Extremities: Nontender, No edema Skin: No rash, Jaundice Neurological: Alert, Oriented x3, Cranial nerves II-XII grossly intact, Normal Strength, Normal Sensation Psychological: Normal affect, Normal Mood Diagnostic/Tx/Re-eval Clinical Impression(s) from Imaging Studies Abdomen/Pelvis CT 03/03/20 18:44 IMPRESSION: Ascites. Heterogenous liver, this may be secondary to underlying hepatic dysfunction, consider MRI with contrast for further evaluation. Cholelithiasis associated with gallbladder wall thickening which may be reactive. Bilateral pleural effusions associated with dependent consolidation within the lower lobes. Fibroid uterus. Electronically Signed: Siobhan Pierce MD at 20:09 EST Tel , Service support , Abnormal Lab Results 03/03/20 03/03/20 03/03/20 19:06 19:06 19:06 WBC Cancelled Corrected WBC Cancelled RBC Cancelled Hgb Cancelled Hct Cancelled MCV Cancelled MCH Cancelled MCHC Cancelled RDW Std Deviation Cancelled RDW Coeff of Kimberly Cancelled Plt Count Cancelled MPV Cancelled Immature Gran % (Auto) Cancelled Neut % (Auto) Cancelled Lymph % (Auto) Cancelled [place] % (Auto) Cancelled Eos % (Auto) Cancelled Baso % (Auto) Cancelled Absolute Neuts (auto) Cancelled Absolute Lymphs (auto) Cancelled Total Counted Cancelled Neutrophils % (Manual) Cancelled Band Neutrophils % Cancelled Lymphocytes % (Manual) Cancelled Monocytes % (Manual) Cancelled Eosinophils % (Manual) Cancelled Basophils % (Manual) Cancelled Metamyelocytes % Cancelled Myelocytes % Cancelled Promyelocytes % Cancelled Blast Cells % Cancelled Plasma Cell % (Manual) Cancelled Other Cells % Cancelled Nucleated RBC % Cancelled Nucleated RBCs/100 WBC Cancelled Differential Comment Cancelled Diff Path Review Cancelled Hypersegmented Neuts Cancelled Atypical Lymphocytes Cancelled Reactive Lymphocytes Cancelled Smudge Cells Cancelled Toxic Granulation Cancelled Toxic Vacuolation Cancelled Dohle Bodies Cancelled Jorge L Rods Cancelled Platelet Estimate Cancelled Immature Plt Fraction Plt Morphology Comment Cancelled RBC Morphology Cancelled Polychromasia Cancelled Hypochromasia Cancelled Poikilocytosis Cancelled Basophilic Stippling Cancelled Anisocytosis Cancelled Microcytosis Cancelled Macrocytosis Cancelled Spherocytes Cancelled Sickle Cells Cancelled Target Cells Cancelled Tear Drop Cells Cancelled Ovalocytes Cancelled Stomatocytes Cancelled [place] Bodies Cancelled [place] Cells Cancelled Bite Cells Cancelled Crenated Cell Cancelled Acanthocytes (Spur) Cancelled Rouleaux Cancelled Schistocytes Cancelled Retic Count Immature Retic Fraction Retic Hgb Equivalent Sodium 137 Potassium 4.9 Chloride 108 H Carbon Dioxide 25.0 Anion Gap 4 L BUN 12 Creatinine 0.88 Estim Creat Clear Calc 65.00 Est GFR (MDRD) Af Amer 85 Est GFR (MDRD) Non-Af 71 BUN/Creatinine Ratio 13.6 Glucose 149 H Lactic Acid Calcium 8.1 L Total Bilirubin 14.10 H Direct Bilirubin 9.37 H AST 107 H ALT 92 H Alkaline Phosphatase 98 Lactate Dehydrogenase 354 H Total Protein 6.0 L Albumin 1.8 L Globulin 4.2 Lipase 266 Urine Color Urine Clarity Urine pH Ur Specific [place] Urine Protein Urine Glucose (UA) Urine Ketones Urine Occult Blood Urine Nitrite Urine Bilirubin Urine Urobilinogen Ur Leukocyte Esterase Urine RBC Urine WBC Ur Squamous Epith Cells Urine Bacteria Urine Mucus 03/03/20 03/03/20 03/03/20 19:20 19:20 19:30 WBC 4.5 Corrected WBC RBC 4.75 Hgb 9.9 L Hct 27.7 L MCV 58.3 L MCH 20.8 L MCHC 35.7 RDW Std Deviation 47.7 H RDW Coeff of Kimberly 28.1 H Plt Count 112 L MPV TNP Immature Gran % (Auto) 0.700 Neut % (Auto) 51.1 Lymph % (Auto) 29.9 [place] % (Auto) 15.8 H Eos % (Auto) 1.8 Baso % (Auto) 0.7 Absolute Neuts (auto) 2.3 Absolute Lymphs (auto) 1.34 Total Counted Neutrophils % (Manual) Band Neutrophils % Lymphocytes % (Manual) Monocytes % (Manual) Eosinophils % (Manual) Basophils % (Manual) Metamyelocytes % Myelocytes % Promyelocytes % Blast Cells % Plasma Cell % (Manual) Other Cells % Nucleated RBC % 0 Nucleated RBCs/100 WBC Differential Comment SCANNED Diff Path Review Hypersegmented Neuts Atypical Lymphocytes Reactive Lymphocytes Smudge Cells Toxic Granulation Toxic Vacuolation Dohle Bodies Jorge L Rods Platelet Estimate Immature Plt Fraction 6.3 Plt Morphology Comment RBC Morphology Polychromasia Hypochromasia Poikilocytosis Basophilic Stippling Anisocytosis Microcytosis Macrocytosis Spherocytes Sickle Cells Target Cells Tear Drop Cells Ovalocytes Stomatocytes [place] Bodies [place] Cells Bite Cells Crenated Cell Acanthocytes (Spur) Rouleaux Schistocytes Retic Count 2.27 H Immature Retic Fraction 13.10 Retic Hgb Equivalent 28.2 L Sodium Potassium Chloride Carbon Dioxide Anion Gap BUN Creatinine Estim Creat Clear Calc Est GFR (MDRD) Af Amer Est GFR (MDRD) Non-Af BUN/Creatinine Ratio Glucose Lactic Acid 1.1 Calcium Total Bilirubin Direct Bilirubin AST ALT Alkaline Phosphatase Lactate Dehydrogenase Total Protein Albumin Globulin Lipase Urine Color Urine Clarity Urine pH Ur Specific [place] Urine Protein Urine Glucose (UA) Urine Ketones Urine Occult Blood Urine Nitrite Urine Bilirubin Urine Urobilinogen Ur Leukocyte Esterase Urine RBC Urine WBC Ur Squamous Epith Cells Urine Bacteria Urine Mucus 03/03/20 19:57 WBC Corrected WBC RBC Hgb Hct MCV MCH MCHC RDW Std Deviation RDW Coeff of Kimberly Plt Count MPV Immature Gran % (Auto) Neut % (Auto) Lymph % (Auto) [place] % (Auto) Eos % (Auto) Baso % (Auto) Absolute Neuts (auto) Absolute Lymphs (auto) Total Counted Neutrophils % (Manual) Band Neutrophils % Lymphocytes % (Manual) Monocytes % (Manual) Eosinophils % (Manual) Basophils % (Manual) Metamyelocytes % Myelocytes % Promyelocytes % Blast Cells % Plasma Cell % (Manual) Other Cells % Nucleated RBC % Nucleated RBCs/100 WBC Differential Comment Diff Path Review Hypersegmented Neuts Atypical Lymphocytes Reactive Lymphocytes Smudge Cells Toxic Granulation Toxic Vacuolation Dohle Bodies Jorge L Rods Platelet Estimate Immature Plt Fraction Plt Morphology Comment RBC Morphology Polychromasia Hypochromasia Poikilocytosis Basophilic Stippling Anisocytosis Microcytosis Macrocytosis Spherocytes Sickle Cells Target Cells Tear Drop Cells Ovalocytes Stomatocytes [place] Bodies [place] Cells Bite Cells Crenated Cell Acanthocytes (Spur) Rouleaux Schistocytes Retic Count Immature Retic Fraction Retic Hgb Equivalent Sodium Potassium Chloride Carbon Dioxide Anion Gap BUN Creatinine Estim Creat Clear Calc Est GFR (MDRD) Af Amer Est GFR (MDRD) Non-Af BUN/Creatinine Ratio Glucose Lactic Acid Calcium Total Bilirubin Direct Bilirubin AST ALT Alkaline Phosphatase Lactate Dehydrogenase Total Protein Albumin Globulin Lipase Urine Color Yellow Urine Clarity Clear Urine pH 7.0 Ur Specific [place] 1.005 Urine Protein Negative Urine Glucose (UA) Normal Urine Ketones Negative Urine Occult Blood 50 H Urine Nitrite Negative Urine Bilirubin 3 H Urine Urobilinogen 4 H Ur Leukocyte Esterase 500 H Urine RBC 0-5 SEEN Urine WBC 0-5 SEEN Ur Squamous Epith Cells 0 SEEN Urine Bacteria 0 SEEN Urine Mucus 0 SEEN - Medical Decision Making The patient presents with new jaundice. She is afebrile. She has very minimal abdominal pain. She is though obviously jaundiced. She does have a history of hepatitis and is on entecavir. However, after discussion with the patient, she stopped taking it about 2 months ago. Metabolic work-up was pursued. Her liver functions are only minimally elevated, but she has a marked elevation of her bilirubin of 14. She does have a stable chronic anemia and mild thrombocytopenia, which I feel may be secondary to splenic sequestration. Patient underwent CT of the abdomen pelvis. This does demonstrate heterogeneous appearing liver with new ascites. I did discuss her case with Dr. Nelson, who was covering for Dr. French. This really does not involve her underlying malignancy and may be reactivation of her hepatitis. Unfortunately, we do not have GI coverage that would be able to help care for the patient. After discussion with family, they requested transfer to [facility]. Impression 1. New onset ascites 2. Liver dysfunction 3. Jaundice ED Disposition - Plan for ED Patient: Referrals: Lopez Reed DO [Primary Care Provider] -
[2020-03-03 19:09] VITALS: BP 104/74; PULSE 72; RESP 13; TEMP 36.1; O2SAT 97
[2020-03-03 19:47] LABS: AST(SGOT) 107 U/L (15-37); Alanine Aminotransfer ALT/SGPT 92 U/L (13-56); Albumin, Serum 1.8 g/dL (3.2-5.0); Alkaline Phosphatase 98 U/L (45-117); Anion Gap 4 (5-15); BUN 12 mg/dL (7-18); BUN/Creat Ratio 13.6 RATIO (10-20); Bilirubin, Direct 9.37 mg/dL (0.00-0.30); Calcium,Total 8.1 mg/dL (8.5-10.1); Chloride 108 mmol/L (98-107); Creatinine, Serum 0.88 mg/dL (0.55-1.02); EST Glomerular Filtration Rate 71 mL/min (>60); Est Glom Filt Rate - Afr Amer 85 mL/min (>60); Globulin 4.2 g/dL (2.2-4.2); Glucose 149 mg/dL (74-106); Lipase 266 U/L (73-393); Potassium 4.9 mmol/L (3.5-5.1); Sodium Level 137 mmol/L (136-145)
[2020-03-03 19:49] LABS: Absolute Lymphocyte Count 1.34 X10^3/uL (0.83-4.51); Absolute Neutrophil Count 2.3 X10^3/uL (2.0-7.7); Basophil# 0.03 X10^3/uL; Basophil% 0.7 % (0-1); Eosinophil# 0.08 X10^3/uL; Eosinophils% 1.8 % (0-5); Hematocrit 27.7 % (37-47); Hemoglobin 9.9 g/dL (12.0-15.0); Lymphocyte # 1.34 X10^3/ul (4.0); Lymphocyte % 29.9 % (19-41); Mean Corp Hgb Conc 35.7 g/dL (32-36); Mean Corpuscular Hgb 20.8 pg (27.0-32.0); Mean Corpuscular Volume 58.3 fL (81-99); Monocyte# 0.71 X10^3/uL; Monocyte% 15.8 % (0-10); NRBC Flagged by Analyzer 0 % (0-5); Neutrophil # 2.29 X10^3/uL (2.7-7.7); Neutrophil % 51.1 % (47-70); POSITIVE MORPHOLOGY YES; Platelet Count 112 K/mm3 (150-450); RBC Distribution Width CV 28.1 % (11.6-14.6); RBC Distribution Width SD 47.7 fl (35.1-43.9); Red Blood Count 4.75 M/mm3 (4.2-5.4); White Blood Count 4.5 K/mm3 (4.4-11.0)
[2020-03-03 19:50] LABS: Differential Indicated SCAN CRITERIA MET
[2020-03-03] MEDS: 0.9% Normal Saline 1,000 ML 125 ML IV (19:56)
[2020-03-03 20:04] VITALS: BP 137/82; PULSE 85; RESP 20; TEMP 36.6; O2SAT 96
[2020-03-03 20:04] LABS: Bacteria 0 SEEN /hpf (None Seen); Mucous, Urine 0 SEEN /hpf (<or=2+); Squamous Epithelial Cells - UA 0 SEEN /hpf (5-10)
[2020-03-03 20:14] LABS: Color, Urine Yellow (Yellow); Glucose, Dipstick Normal (Normal); Ketone-Dipstick Negative (Negative); Leukocyte Esterase-Dipstick 500 /ul (Negative); Nitrite-Dipstick Negative (Negative); Occult Blood-Urine 50 /ul (Negative); Protein-Dipstick Negative (Negative); Specific Gravity, Urine 1.005 (1.002-1.030); Urine Clarity Clear (Clear); Urine Urobilinogen 4 mg/dl (Normal)
[2020-03-03 20:16] LABS: Lactic Acid 1.1 mmol/L (0.4-1.9)
[2020-03-03 20:17] LABS: Urine Bilirubin Dipstick 3 mg/dL (Negative)
[2020-03-03 20:19] LABS: Differential Comment SCANNED
[2020-03-03 20:32] LABS: Red Blood Cells-Urine 0-5 SEEN /hpf (0-5); White Blood Cells 0-5 SEEN /hpf (0-5)
[2020-03-03 20:44] LABS: Immature Platelet Fraction 6.3 % (1.0-7.9); Platelet Count 115 K/mm3 (150-450); RET-HE 28.2 pg (30-35); Reticulocyte Count 2.27 % (0.5-1.5)
[2020-03-03 20:58] LABS: LDH 354 U/L (84-246)
[2020-03-03 21:47] VITALS: BP 138/87; PULSE 73; RESP 19; TEMP 36.6; O2SAT 98
--- NOTE | 2020-03-03 21:48 | ED.RN ---
PER DR. ROMO, SEPSIS SCREEN COMPLETE.
[2020-03-04] VITALS (9 sets, daily range): BP systolic 117–137; BP diastolic 72–83; PULSE 66–80; RESP 12–18; TEMP 36.7–37; O2SAT 96–99; BMI 22.3; BMI 22.5
--- NOTE | 2020-03-04 01:53 | ED.RN ---
CALLED [facility] TO CHECK THE STATUS OF A BED ASSIGNMENT, NO BED AT THIS TIME PER JORDYN IN THE TRANSFER CENTER
--- NOTE | 2020-03-04 05:17 | ED.RN ---
SPOKE WITH PATIENTS AT THIS TIME. FAMILY EXPRESSING ANGER THAT IT IS TAKING SO LONG FOR TRANSFER. THIS NURSE IS GOING TO ATTEMPT TO CONTACT [facility] AND SEE IF THERE IS A BED AT ANOTHER HOSPITAL OR CONSIDER ANOTHER HOSPITAL
--- NOTE | 2020-03-04 06:35 | ED.RN ---
PER FAMILY REQUEST ATTEMPTED SEVERAL OTHER HOSPITALS AT THIS TIME. [facility] IS FULL, [facility] AND [facility] DOES NOT HAVE HEPT SERVICE. CONTACTED [facility] IS CURRENTLY LOOKING INTO BEDS AT THIS TIME
--- NOTE | 2020-03-04 06:37 | ED.RN ---
[facility] NOT ABLE TO ACCEPT AT THIS TIME THEY DO NOT HAVE A LIVER SPECIALIST
--- NOTE | 2020-03-04 07:42 | ED.RN ---
THIS RN IN TO INTRODUCE SELF TO PATIENT. EXPLAINED THAT CURRENTLY [id number] TO WAIT FOR NOTIFICATION FROM [facility] ON A BED. INFORMED PT THAT BREAKFAST TRAY WAS ORDERED AND ALSO HER MORNING MEDICATIONS WERE ORDERED. ASKED PT IF SHE HAD ANY NEEDS. PT DENIES. REORIENTED TO CALL LIGHT. PT VOICES UNDERSTANDING
--- NOTE | 2020-03-04 08:09 | NURSING ---
0805 CALLED [facility]. TALKED TO JAYME AT THE TRANSFER LINE. STILL WAITING ON A BED. THEY ARE DEPENDENT ON DISCHARGES THIS AFTERNOON. ADVISED TO ADMIT PATIENT TO OUR HOSPITAL
--- NOTE | 2020-03-04 08:16 | NURSING ---
DR BALLESTEROS FOR DR COTTON
--- NOTE | 2020-03-04 08:24 | NURSING ---
MED SURG ASHMABEL OBS HYPERBILIRUBINEMIA, HX OF HEPATITIS
--- NOTE | 2020-03-04 08:46 | NURSING ---
DR LUNA IN ER
--- NOTE | 2020-03-04 09:14 | PCM.HP.STD ---
Problem List (1) Thrush, oral Status: Resolved (2) Breast cancer Status: Chronic Qualifiers: Breast location: upper outer quadrant of breast Estrogen receptor status: negative Patient sex: female Laterality: right Qualified Code(s): C50.411 - Malignant neoplasm of upper-outer quadrant of right female breast; Z17.1 - Estrogen receptor negative status [ER-] (3) Immunosuppression due to drug therapy Status: Resolved (4) Hepatitis B carrier Status: Chronic (5) UTI (urinary tract infection) Status: Resolved History of Present Illness Date of Admission: 03/04/20 Chief Complaint: Abdominal bloating. The patient is a 54 year old F who presents to the emergency room due to abdominal bloating and weight gain. She states she had Covid approximately 1 month ago and seemed to recover. She was recently treated for UTI due to abdominal discomfort and urinary symptoms. Patient states she is gained approximately 15 pounds over the past month or so. Denies abdominal pain. Reports jaundiced skin appearance and yellow eyes. Denies nausea, vomiting. Denies fever, chills. Patient is on Entecavir for chronic hepatitis B and states she stopped taking this 2 months ago. She feels she may have misunderstood her doctor during discussion and feels she was not supposed to stop taking it. She has a past medical history of type 2 diabetes mellitus, hepatitis B carrier, history of breast cancer status post lumpectomy and chemotherapy, hypertension. Patient family requesting transfer to [facility] however no bed is available at this time. Past Medical History Past Medical History (Chronic Problems): Chronic Problems Breast cancer (Chronic) Hepatitis B carrier (Chronic) Allergies No Known Allergies Allergy (Verified 01/09/19 12:12) Home Medications: Ambulatory Orders Medication Instructions Recorded Entecavir 1 tab PO DAILY 10/05/18 Semaglutide [Ozempic] 1 mg SQ TU 10/05/18 Acetaminophen [Tylenol Extra 1,000 mg PO Q6H PRN PRN 11/16/18 Strength] Cefadroxil 1 gm PO BID #10 tab 11/21/18 Nystatin 500,000 unit PO 4X/DAY #200 ml 11/21/18 Anastrozole 1 mg PO DAILY 03/03/20 Carvedilol [Coreg] 12.5 mg PO BID 03/03/20 Cephalexin [Keflex] 500 mg PO TID 03/03/20 Cholecalciferol (Vitamin D3) 1,250 mcg PO QWEEK 03/03/20 [Vitamin D3] Ferrous Sulfate 324 mg PO BID 03/03/20 Losartan Potassium [Cozaar] 50 mg PO DAILY 03/03/20 Surgical History: - - chemotherapy port placement in September 2018, right lumpectomy Psychiatric History: No pertinent psych hx 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 Denies: Chills, Fever HEENT: Denies: Head Aches, Sinus Congestion, Sinus Drainage Cardiovascular: Denies: Chest Pain, Palpitations Respiratory: Denies: Cough, Shortness of breath at rest, Sputum production Gastrointestinal: Reports: - - Abdominal bloating. Denies: Abdominal Pain, Constipation, Diarrhea, Nausea, Vomiting Genitourinary: Denies: Dysuria Musculoskeletal: Denies: Joint Pain, Joint Tenderness Skin: Reports: - - Jaundice skin appearance. Denies: Rash, Wounds Neurological: Denies: Numbness, Tingling, Focal weakness Psychiatric: Denies: Anxiety, Depression, Homicidal Ideations, Suicidal Ideations Hematologic/ Lymphatic: Denies: Easy Bruising, Easy Bleeding VTE Information - Inpt Only VTE Present on Admission: No VTE Mechan Device Prophylaxis: SCD's VTE Pharm Prophylaxis ordered?: No Reason prophylaxis not ordered:: Medical Contraindication - Physical Exam Vitals/I&O's: Vital Signs Temp Pulse Resp BP Pulse Ox 98.2 F 77 16 137/83 H 96 03/04/20 08:22 03/04/20 08:22 03/04/20 08:22 03/04/20 08:22 03/04/20 08:22 Oxygen Delivery Method Room Air Weight: 134 lb Body Mass Index (BMI) 22.3 Intake and Output for Last 24 Hours 03/02/20 03/03/20 03/04/20 23:59 23:59 23:59 Intake Total 700 / 700 Balance 700 / 700 General: Alert, Oriented x3, Cooperative, - - Jaundiced appearing HEENT: Atraumatic, PERRLA, EOMI, Normocephalic Neck: Supple, No JVD, Negative Carotid Bruits Lungs: Clear to auscultation, Normal air movement Cardiovascular: Regular rate, No murmurs Abdomen: Bowel Sounds Present, Soft, Non Tender, Non-Distended Extremities: No clubbing, No cyanosis, Capillary Refill Less than 3 Seconds, Edema - Nonpitting bilateral lower extremities Skin: No rashes, No breakdown Musculoskeletal: No Tenderness to Palpation of Joints or Extremities Neurological: Cranial nerves II-XII grossly intact, Neuro grossly intact Psych/Mental Status: Normal Affect, Appropriate Microbiology Past 72 Hours 03/03/20 20:50 Mucosa - Nose SARS-CoV-2 Antigen (Rapid) - Final Laboratory Results 03/03/20 19:06: WBC Cancelled, Corrected WBC Cancelled, RBC Cancelled, Hgb Cancelled, Hct Cancelled, MCV Cancelled, MCH Cancelled, MCHC Cancelled, RDW Std Deviation Cancelled, RDW Coeff of Kimberly Cancelled, Plt Count Cancelled, MPV Cancelled, Immature Gran % (Auto) Cancelled, Neut % (Auto) Cancelled, Lymph % (Auto) Cancelled, Owen % (Auto) Cancelled, Eos % (Auto) Cancelled, Baso % (Auto) Cancelled, Absolute Neuts (auto) Cancelled, Absolute Lymphs (auto) Cancelled, Total Counted Cancelled, Neutrophils % (Manual) Cancelled, Band Neutrophils % Cancelled, Lymphocytes % (Manual) Cancelled, Monocytes % (Manual) Cancelled, Eosinophils % (Manual) Cancelled, Basophils % (Manual) Cancelled, Metamyelocytes % Cancelled, Myelocytes % Cancelled, Promyelocytes % Cancelled, Blast Cells % Cancelled, Plasma Cell % (Manual) Cancelled, Other Cells % Cancelled, Nucleated RBC % Cancelled, Nucleated RBCs/100 WBC Cancelled, Differential Comment Cancelled, Diff Path Review Cancelled, Hypersegmented Neuts Cancelled, Atypical Lymphocytes Cancelled, Reactive Lymphocytes Cancelled, Smudge Cells Cancelled, Toxic Granulation Cancelled, Toxic Vacuolation Cancelled, Dohle Bodies Cancelled, Jorge L Rods Cancelled, Platelet Estimate Cancelled, Plt Morphology Comment Cancelled, RBC Morphology Cancelled, Polychromasia Cancelled, Hypochromasia Cancelled, Poikilocytosis Cancelled, Basophilic Stippling Cancelled, Anisocytosis Cancelled, Microcytosis Cancelled, Macrocytosis Cancelled, Spherocytes Cancelled, Sickle Cells Cancelled, Target Cells Cancelled, Tear Drop Cells Cancelled, Ovalocytes Cancelled, Stomatocytes Cancelled, Fuentes[place] Bodies Cancelled, Rosey Cells Cancelled, Bite Cells Cancelled, Crenated Cell Cancelled, Acanthocytes (Spur) Cancelled, Rouleaux Cancelled, Schistocytes Cancelled 03/03/20 19:06: Sodium 137, Potassium 4.9, Chloride 108 H, Carbon Dioxide 25.0, Anion Gap 4 L, BUN 12, Creatinine 0.88, Estim Creat Clear Calc 65.00, Est GFR (MDRD) Af Amer 85, Est GFR (MDRD) Non-Af 71, BUN/Creatinine Ratio 13.6, Glucose 149 H, Calcium 8.1 L, Total Bilirubin 14.10 H, Direct Bilirubin 9.37 H, AST 107 H, ALT 92 H, Alkaline Phosphatase 98, Total Protein 6.0 L, Albumin 1.8 L, Globulin 4.2, Lipase 266 03/03/20 19:06: Lactate Dehydrogenase 354 H 03/03/20 19:20: WBC 4.5, RBC 4.75, Hgb 9.9 L, Hct 27.7 L, MCV 58.3 L, MCH 20.8 L, MCHC 35.7, RDW Std Deviation 47.7 H, RDW Coeff of Kimberly 28.1 H, Plt Count 112 L, MPV TNP, Immature Gran % (Auto) 0.700, Neut % (Auto) 51.1, Lymph % (Auto) 29.9, Owen % (Auto) 15.8 H, Eos % (Auto) 1.8, Baso % (Auto) 0.7, Absolute Neuts (auto) 2.3, Absolute Lymphs (auto) 1.34, Nucleated RBC % 0, Differential Comment SCANNED 03/03/20 19:20: Immature Plt Fraction 6.3, Retic Count 2.27 H, Immature Retic Fraction 13.10, Retic Hgb Equivalent 28.2 L 03/03/20 19:30: Lactic Acid 1.1 03/03/20 19:57: Urine Color Yellow, Urine Clarity Clear, Urine pH 7.0, Ur Specific [place] 1.005, Urine Protein Negative, Urine Glucose (UA) Normal, Urine Ketones Negative, Urine Occult Blood 50 H, Urine Nitrite Negative, Urine Bilirubin 3 H, Urine Urobilinogen 4 H, Ur Leukocyte Esterase 500 H, Urine RBC 0-5 SEEN, Urine WBC 0-5 SEEN, Ur Squamous Epith Cells 0 SEEN, Urine Bacteria 0 SEEN, Urine Mucus 0 SEEN Current Medications Anastrozole (Anastrozole 1 Mg Tablet) 1 mg PO DAILY [facility] Carvedilol (Carvedilol 12.5 Mg Tablet) 12.5 mg PO BID [facility] Cefadroxil (Cefadroxil 500 Mg Capsule) 1,000 mg PO BID [facility] Ferrous Sulfate (Ferrous Sulfate 325 Mg Tablet) 325 mg PO 1200,1700 [facility] Sodium Chloride () 1,000 mls @ 125 mls/hr IV .Q8H [facility] Last Admin: 03/04/20 03:39 Dose: Not Given Documented by: Losartan Potassium (Losartan Potassium 50 Mg Tablet) 50 mg PO DAILY [facility] Assessment/Plan All Active Problems UTI (urinary tract infection) (Resolved) Immunosuppression due to drug therapy (Resolved) Thrush, oral (Resolved) 1. Jaundice, ascites, abnormal liver function studies-CT of abdomen and pelvis shows ascites, heterogeneous liver which may be secondary to underlying hepatic dysfunction, cholelithiasis associated with gallbladder wall thickening which may be reactive, bilateral pleural effusions associated with dependent consolidation within the lower lobes. Bilirubin 14, AST/ALT elevated. Awaiting bed at [facility] for GI evaluation. IV fluids. Trend labs. 2. Chronic hepatitis B-previously on Entecavir, stopped taking two months ago. This may be contributing to above. Will restart. 3. Type 2 diabetes [id number] with sliding scale insulin. 4. Hypertension-stable, continue carvedilol, losartan. DVT prophylaxis- SCDs This patient was seen by BECKY Guajardo under the supervision of Dr. Macedo.
--- NOTE | 2020-03-04 09:19 | NURSING ---
CALLED [facility] AND TALKED TO LIGIA, TRANSFER LINE. ADMISSED HER PATIENT WAS ADMITTED, BUT STILL NEEDS TRANSFERRED. SHE WILL UPDATE THEIR CHART
[2020-03-04 10:47] LABS: International Normalized Ratio 1.8; Prothrombin Time (Protime)PT. 20.5 SECONDS (11.7-14.9)
[2020-03-04] MEDS: 0.9% Normal Saline 1,000 ML 100 ML IV ×2 (10:51→19:59)
[2020-03-04] MEDS: 0.9% Saline Lock 10 ML Syringe IV (10:55)
--- NOTE | 2020-03-04 12:14 | NURSING ---
pandemic documentation initiated: Date: 03/04/2020 Time: 924
[2020-03-04] MEDS: Losartan Potassium 50 MG Tablet PO (12:25)
[2020-03-04] MEDS: Carvedilol 12.5 MG Tablet PO ×2 (12:25→19:59)
[2020-03-04] MEDS: Ferrous Sulfate 325 MG Tablet PO ×2 (12:25→18:53)
[2020-03-04] MEDS: Anastrozole 1 MG TABLET PO (12:25)
[2020-03-04] MEDS: ENTECAVIR 1 MG PO (15:56)
--- NOTE | 2020-03-04 22:53 | NURSING ---
pt and concern about her blood sugar. accucheck 184.
[2020-03-04 23:01] LABS: Bedside Glucose 184 mg/dL (70-110)
[2020-03-05 02:22] VITALS: BP 128/70; PULSE 82; RESP 17; TEMP 36.8; O2SAT 98
[2020-03-05 06:00] LABS: Absolute Lymphocyte Count 1.79 X10^3/uL (0.83-4.51); Absolute Neutrophil Count 2.3 X10^3/uL (2.0-7.7); Basophil# 0.03 X10^3/uL; Basophil% 0.6 % (0-1); Eosinophil# 0.09 X10^3/uL; Eosinophils% 1.8 % (0-5); Hematocrit 23.7 % (37-47); Hemoglobin 8.6 g/dL (12.0-15.0); Lymphocyte # 1.79 X10^3/ul (4.0); Lymphocyte % 36.2 % (19-41); Mean Corp Hgb Conc 36.3 g/dL (32-36); Mean Corpuscular Hgb 21.3 pg (27.0-32.0); Mean Corpuscular Volume 58.7 fL (81-99); Monocyte# 0.68 X10^3/uL; Monocyte% 13.7 % (0-10); NRBC Flagged by Analyzer 0 % (0-5); Neutrophil # 2.33 X10^3/uL (2.7-7.7); Neutrophil % 47.1 % (47-70); POSITIVE COUNT YES; POSITIVE MORPHOLOGY YES; Platelet Count 94 K/mm3 (150-450); RBC Distribution Width CV 29.3 % (11.6-14.6); RBC Distribution Width SD 53.2 fl (35.1-43.9); Red Blood Count 4.04 M/mm3 (4.2-5.4)
[2020-03-05 06:03] LABS: Differential Indicated SCAN CRITERIA MET
[2020-03-05 06:35] LABS: ALB/GLOB Ratio 0.4 RATIO (0.9-2.4); AST(SGOT) 78 U/L (15-37); Alanine Aminotransfer ALT/SGPT 72 U/L (13-56); Albumin, Serum 1.5 g/dL (3.2-5.0); Alkaline Phosphatase 98 U/L (45-117); Anion Gap 3 (5-15); BUN 14 mg/dL (7-18); BUN/Creat Ratio 18.2 RATIO (10-20); Calcium,Total 7.2 mg/dL (8.5-10.1); Chloride 112 mmol/L (98-107); Creatinine, Serum 0.77 mg/dL (0.55-1.02); EST Glomerular Filtration Rate 82 mL/min (>60); Est Glom Filt Rate - Afr Amer 100 mL/min (>60); Estimated Creatinine Clearance 74.28 ml/min; Globulin 3.4 g/dL (2.2-4.2); Glucose 174 mg/dL (74-106); Potassium 3.9 mmol/L (3.5-5.1); Protein, Total 4.9 g/dL (6.4-8.2); Sodium Level 139 mmol/L (136-145)
[2020-03-05 06:53] LABS: Differential Comment SCANNED
[2020-03-05 06:55] LABS: Anisocytosis 1+; Hypochromasia 1+; Target Cells 2+
[2020-03-05 06:56] LABS: Platelet Estimate SLT DEC (ADEQ)
[2020-03-05 08:00] VITALS: BP 147/78; PULSE 73; RESP 16; TEMP 37.1; O2SAT 97
[2020-03-05] MEDS: 0.9% Normal Saline 1,000 ML 100 ML IV ×2 (09:12→18:14)
[2020-03-05] MEDS: Losartan Potassium 50 MG Tablet PO (09:47)
[2020-03-05] MEDS: Carvedilol 12.5 MG Tablet PO ×2 (09:47→21:20)
[2020-03-05] MEDS: ENTECAVIR 1 MG PO (09:47)
[2020-03-05] MEDS: Anastrozole 1 MG TABLET PO (12:11)
[2020-03-05] MEDS: Ferrous Sulfate 325 MG Tablet PO ×2 (12:23→16:59)
--- NOTE | 2020-03-05 14:07 | PCM.PROGNOTE ---
Subjective: Patient seen and examined. Denies current symptoms or complaints. Reports continued mild abdominal bloating. Bilirubin and liver function labs trending down. Awaiting bed at [facility]. - Physical Exam Vitals/I&O's: Vital Signs Temp Pulse Resp BP Pulse Ox 98.8 F 73 16 147/78 H 97 03/05/20 08:00 03/05/20 08:00 03/05/20 08:00 03/05/20 08:00 03/05/20 08:00 Oxygen Delivery Method Room Air Weight: 135 lb 5.821 oz Body Mass Index (BMI) 22.5 Intake and Output for Last 24 Hours 03/03/20 03/04/20 03/05/20 23:59 23:59 23:59 Intake Total 2933.33 / 2933.33 1240 / 1240 Balance 2933.33 / 2933.33 1240 / 1240 General: Alert, Oriented x3, Cooperative, - - Jaundice appearing HEENT: Atraumatic, PERRLA, EOMI, Normocephalic Neck: Supple, No JVD, Negative Carotid Bruits Lungs: Clear to auscultation, Normal air movement Cardiovascular: Regular rate, No murmurs Abdomen: Bowel Sounds Present, Soft, Non Tender, Non-Distended Extremities: No clubbing, No cyanosis, No edema, Capillary Refill Less than 3 Seconds Skin: No rashes, No breakdown Musculoskeletal: No Tenderness to Palpation of Joints or Extremities Neurological: Cranial nerves II-XII grossly intact, Neuro grossly intact Psych/Mental Status: Normal Affect, Appropriate Microbiology Past 72 Hours 03/03/20 20:50 Mucosa - Nose SARS-CoV-2 Antigen (Rapid) - Final Laboratory Results 03/04/20 22:53: POC Glucose 184 H 03/05/20 05:32: WBC 5.0, RBC 4.04 L, Hgb 8.6 L, Hct 23.7 L, MCV 58.7 L, MCH 21.3 L, MCHC 36.3 H, RDW Std Deviation 53.2 H, RDW Coeff of Kimberly 29.3 H, Plt Count 94 L, Immature Gran % (Auto) 0.600, Neut % (Auto) 47.1, Lymph % (Auto) 36.2, [place] % (Auto) 13.7 H, Eos % (Auto) 1.8, Baso % (Auto) 0.6, Absolute Neuts (auto) 2.3, Absolute Lymphs (auto) 1.79, Nucleated RBC % 0, Differential Comment SCANNED, Platelet Estimate SLT DEC, Hypochromasia 1+, Anisocytosis 1+, Target Cells 2+ 03/05/20 05:32: Sodium 139, Potassium 3.9, Chloride 112 H, Carbon Dioxide 24.0, Anion Gap 3 L, BUN 14, Creatinine 0.77, Estim Creat Clear Calc 74.28, Est GFR (MDRD) Af Amer 100, Est GFR (MDRD) Non-Af 82, BUN/Creatinine Ratio 18.2, Glucose 174 H, Calcium 7.2 L, Total Bilirubin 10.50 H, AST 78 H, ALT 72 H, Alkaline Phosphatase 98, Total Protein 4.9 L, Albumin 1.5 L, Globulin 3.4, Albumin/Globulin Ratio 0.4 L Current Medications Anastrozole (Anastrozole 1 Mg Tablet) 1 mg PO DAILY [facility] Last Admin: 03/05/20 12:11 Dose: 1 mg Documented by: Carvedilol (Carvedilol 12.5 Mg Tablet) 12.5 mg PO BID [facility] Last Admin: 03/05/20 09:47 Dose: 12.5 mg Documented by: Ferrous Sulfate (Ferrous Sulfate 325 Mg Tablet) 325 mg PO 1200,1700 [facility] Last Admin: 03/05/20 12:23 Dose: 325 mg Documented by: Sodium Chloride () 1,000 mls @ 100 mls/hr IV .Q10H [facility] Last Admin: 03/05/20 09:12 Dose: 100 mls/hr Documented by: Sodium Chloride () 250 mls @ 15 mls/hr IV .[id number] PRN PRN Reason: Saline Flush Sodium Chloride () 250 mls @ 15 mls/hr IV .[id number] PRN PRN Reason: Additional IVPB Infusion Losartan Potassium (Losartan Potassium 50 Mg Tablet) 50 mg PO DAILY [facility] Last Admin: 03/05/20 09:47 Dose: 50 mg Documented by: Ondansetron HCl (Ondansetron 4 Mg/2 Ml Vial) 4 mg IV Q8H PRN PRN PRN Reason: NAUSEA/VOMITING Oxycodone HCl (Oxycodone 5 Mg Tablet) 5 mg PO Q4H PRN PRN PRN Reason: Pain Score 4-10 Sodium Chloride (0.9% Saline Lock 10 Ml Syringe) 10 - 40 ml IV UD PRN PRN Reason: SALINE FLUSH Last Admin: 03/04/20 10:55 Dose: 10 ml Documented by: Medical Necessity - Tobacco Use Smoking Status: Never smoker Assessment/Plan All Active Problems UTI (urinary tract infection) (Resolved) Immunosuppression due to drug therapy (Resolved) Thrush, oral (Resolved) 1. Jaundice, ascites, abnormal liver function studies-CT of abdomen and pelvis shows ascites, heterogeneous liver which may be secondary to underlying hepatic dysfunction, cholelithiasis associated with gallbladder wall thickening which may be reactive, bilateral pleural effusions associated with dependent consolidation within the lower lobes. Bilirubin, AST/ALT trending down. Awaiting bed at [facility] for GI evaluation. Suspect acute symptoms are related to discontinuing Entacavir 2 months ago. There is not enough fluid on CT for paracentesis. 2. Chronic hepatitis B-previously on Entecavir, stopped taking two months ago. This may be contributing to above. Medication restarted. 3. Type 2 diabetes [id number]-[id number]-[id number] with sliding scale insulin. 4. Hypertension-stable, continue carvedilol, losartan. DVT prophylaxis- SCDs Discharge planning: Awaiting bed at [facility]. If patient continues to improve, may be able to discharge with outpatient follow-up as opposed to transfer. This patient was seen by BECKY Guajardo under the supervision of Dr. Macedo.
[2020-03-05 15:38] VITALS: BP 148/96; PULSE 78; RESP 14; TEMP 36.6; O2SAT 99
[2020-03-05 18:16] VITALS: TEMP 36.9
--- NOTE | 2020-03-05 20:28 | NURSING ---
INSPECTOR FINISHING had reported that pt was painful but I was with another pt. When I entered room just now, pt stated she was ok. She is just painful when she gets up. Advised her that I had a med to give & then I would return to reevaluate shortly.
[2020-03-05 20:54] VITALS: BP 142/75; PULSE 80; RESP 18; TEMP 36.7; O2SAT 100
[2020-03-05 21:00] VITALS: PULSE 80; RESP 18
[2020-03-06 02:27] VITALS: BP 140/70; PULSE 74; RESP 16; TEMP 36.7; O2SAT 98
[2020-03-06] MEDS: 0.9% Normal Saline 1,000 ML 100 ML IV (03:52)
[2020-03-06 06:25] LABS: Hematocrit 24.5 % (37-47); Hemoglobin 8.8 g/dL (12.0-15.0); Mean Corp Hgb Conc 35.9 g/dL (32-36); Mean Corpuscular Hgb 21.3 pg (27.0-32.0); Mean Corpuscular Volume 59.2 fL (81-99); POSITIVE COUNT YES; POSITIVE MORPHOLOGY YES; Platelet Count 91 K/mm3 (150-450); RBC Distribution Width CV 30.1 % (11.6-14.6); RBC Distribution Width SD 56.2 fl (35.1-43.9); Red Blood Count 4.14 M/mm3 (4.2-5.4); White Blood Count 4.5 K/mm3 (4.4-11.0)
[2020-03-06 06:27] LABS: Scan Indicated on CBC? Y/N YES- FLAGS NOTED
[2020-03-06 06:42] LABS: ALB/GLOB Ratio 0.5 RATIO (0.9-2.4); AST(SGOT) 83 U/L (15-37); Alanine Aminotransfer ALT/SGPT 68 U/L (13-56); Albumin, Serum 1.6 g/dL (3.2-5.0); Alkaline Phosphatase 93 U/L (45-117); Anion Gap 4 (5-15); BUN 12 mg/dL (7-18); Calcium,Total 7.2 mg/dL (8.5-10.1); Chloride 115 mmol/L (98-107); Creatinine, Serum 0.75 mg/dL (0.55-1.02); EST Glomerular Filtration Rate 85 mL/min (>60); Est Glom Filt Rate - Afr Amer 103 mL/min (>60); Estimated Creatinine Clearance 76.26 ml/min; Globulin 3.4 g/dL (2.2-4.2); Glucose 157 mg/dL (74-106); Potassium 3.8 mmol/L (3.5-5.1); Sodium Level 142 mmol/L (136-145)
[2020-03-06 07:01] LABS: Differential Comment SCANNED
[2020-03-06 09:24] VITALS: BP 150/88; PULSE 75; RESP 18; TEMP 36.7; O2SAT 97
[2020-03-06] MEDS: Carvedilol 12.5 MG Tablet PO ×2 (09:36→21:01)
[2020-03-06] MEDS: Anastrozole 1 MG TABLET PO (09:36)
[2020-03-06] MEDS: Losartan Potassium 50 MG Tablet PO (09:36)
[2020-03-06] MEDS: ENTECAVIR 1 MG PO (09:37)
[2020-03-06] MEDS: Ferrous Sulfate 325 MG Tablet PO ×2 (13:04→18:23)
[2020-03-06] MEDS: 0.9% Saline Lock 10 ML Syringe IV (13:04)
[2020-03-06 16:28] VITALS: BP 149/89; PULSE 76; RESP 18; TEMP 36.9; O2SAT 98
--- NOTE | 2020-03-06 19:20 | PCM.PROGNOTE ---
Subjective: She was seen and examined today, her bilirubin is slightly more elevated than it was yesterday but her liver enzymes have not significantly changed. I talked at length with the patient's who was in the room today, I still feel that if the patient goes back on her home medications for hep B that these liver enzyme abnormalities will correct over time. We are still waiting word from the [facility] where they have a bed for the patient-they accepted the patient over 2 days ago. I will recheck the patient's CMP tomorrow, I do not believe she needs fluids at this time and I have stopped her IV fluids. Objective: General: Alert, Oriented x3, Cooperative, - - Jaundice appearing HEENT: Atraumatic, PERRLA, EOMI, Normocephalic Neck: Supple, No JVD, Negative Carotid Bruits Lungs: Clear to auscultation, Normal air movement Cardiovascular: Regular rate, No murmurs Abdomen: Bowel Sounds Present, Soft, Non Tender, Non-Distended Extremities: No clubbing, No cyanosis, No edema, Capillary Refill Less than 3 Seconds Skin: No rashes, No breakdown Musculoskeletal: No Tenderness to Palpation of Joints or Extremities Neurological: Cranial nerves II-XII grossly intact, Neuro grossly intact Psych/Mental Status: Normal Affect, Appropriate - Physical Exam Vitals/I&O's: Vital Signs Temp Pulse Resp BP Pulse Ox 98.4 F 76 18 149/89 H 98 03/06/20 16:28 03/06/20 16:28 03/06/20 16:28 03/06/20 16:28 03/06/20 16:28 Oxygen Delivery Method Room Air Weight: 61.4 kg Body Mass Index (BMI) 22.5 Intake and Output for Last 24 Hours 03/04/20 03/05/20 03/06/20 23:59 23:59 23:59 Intake Total 2933.33 / 2933.33 2383.33 / 2383.33 2586.67 / 2586.67 Output Total 1050 / 1050 Balance 2933.33 / 2933.33 2383.33 / 2183.33 1536.67 / 1536.67 Microbiology Past 72 Hours 03/03/20 20:50 Mucosa - Nose SARS-CoV-2 Antigen (Rapid) - Final Laboratory Results 03/06/20 05:56: WBC 4.5, RBC 4.14 L, Hgb 8.8 L, Hct 24.5 L, MCV 59.2 L, MCH 21.3 L, MCHC 35.9, RDW Std Deviation 56.2 H, RDW Coeff of Kimberly 30.1 H, Plt Count 91 L, Differential Comment SCANNED 03/06/20 05:56: Sodium 142, Potassium 3.8, Chloride 115 H, Carbon Dioxide 23.0, Anion Gap 4 L, BUN 12, Creatinine 0.75, Estim Creat Clear Calc 76.26, Est GFR (MDRD) Af Amer 103, Est GFR (MDRD) Non-Af 85, BUN/Creatinine Ratio 16.0, Glucose 157 H, Calcium 7.2 L, Total Bilirubin 11.10 H, AST 83 H, ALT 68 H, Alkaline Phosphatase 93, Total Protein 5.0 L, Albumin 1.6 L, Globulin 3.4, Albumin/Globulin Ratio 0.5 L Current Medications Anastrozole (Anastrozole 1 Mg Tablet) 1 mg PO DAILY [facility] Last Admin: 03/06/20 09:36 Dose: 1 mg Documented by: Carvedilol (Carvedilol 12.5 Mg Tablet) 12.5 mg PO BID [facility] Last Admin: 03/06/20 09:36 Dose: 12.5 mg Documented by: Ferrous Sulfate (Ferrous Sulfate 325 Mg Tablet) 325 mg PO 1200,1700 [facility] Last Admin: 03/06/20 18:23 Dose: 325 mg Documented by: Sodium Chloride () 250 mls @ 15 mls/hr IV .[id number] PRN PRN Reason: Saline Flush Sodium Chloride () 250 mls @ 15 mls/hr IV .[id number] PRN PRN Reason: Additional IVPB Infusion Losartan Potassium (Losartan Potassium 50 Mg Tablet) 50 mg PO DAILY [facility] Last Admin: 03/06/20 09:36 Dose: 50 mg Documented by: Ondansetron HCl (Ondansetron 4 Mg/2 Ml Vial) 4 mg IV Q8H PRN PRN PRN Reason: NAUSEA/VOMITING Oxycodone HCl (Oxycodone 5 Mg Tablet) 5 mg PO Q4H PRN PRN PRN Reason: Pain Score 4-10 Sodium Chloride (0.9% Saline Lock 10 Ml Syringe) 10 - 40 ml IV UD PRN PRN Reason: SALINE FLUSH Last Admin: 03/06/20 13:04 Dose: 10 ml Documented by: Medical Necessity - Tobacco Use Smoking Status: Never smoker Assessment/Plan All Active Problems UTI (urinary tract infection) (Resolved) Immunosuppression due to drug therapy (Resolved) Thrush, oral (Resolved) #1 jaundice secondary to acute hepatitis B flareup-I do not feel the patient needs fluids at this time, labs will be rechecked tomorrow. #2 acute hepatitis B flareup on chronic hepatitis B-patient is now taking her outpatient antiviral medications in the hospital here. #3 type 2 diabetes-patient's blood sugar will be monitored #4 essential hypertension-continue present medications Again I had a long discussion with the and the patient concerning the course of her medical care, as of now we still do not have a bed at the [facility] for the patient be transferred to [facility] E&M: [id number] Subsequent observation care L3
[2020-03-06 20:56] VITALS: BP 140/75; PULSE 78; RESP 20; TEMP 36.7; O2SAT 98
[2020-03-06 21:09] VITALS: PULSE 70
[2020-03-07 02:21] VITALS: BP 139/85; PULSE 76; RESP 16; TEMP 36.5; O2SAT 97
[2020-03-07 06:26] LABS: ALB/GLOB Ratio 0.4 RATIO (0.9-2.4); AST(SGOT) 90 U/L (15-37); Alanine Aminotransfer ALT/SGPT 69 U/L (13-56); Albumin, Serum 1.6 g/dL (3.2-5.0); Alkaline Phosphatase 102 U/L (45-117); Anion Gap 5 (5-15); BUN 12 mg/dL (7-18); BUN/Creat Ratio 16.1 RATIO (10-20); Calcium,Total 7.7 mg/dL (8.5-10.1); Chloride 109 mmol/L (98-107); Creatinine, Serum 0.75 mg/dL (0.55-1.02); EST Glomerular Filtration Rate 86 mL/min (>60); Est Glom Filt Rate - Afr Amer 103 mL/min (>60); Estimated Creatinine Clearance 76.26 ml/min; Globulin 3.9 g/dL (2.2-4.2); Glucose 145 mg/dL (74-106); Potassium 3.4 mmol/L (3.5-5.1); Protein, Total 5.5 g/dL (6.4-8.2); Sodium Level 137 mmol/L (136-145)
--- NOTE | 2020-03-07 08:50 | NURSING ---
[facility] transfer center, no bed available at this time.
[2020-03-07 10:20] VITALS: BP 149/91; PULSE 75; RESP 18; TEMP 36.7; O2SAT 96
[2020-03-07] MEDS: Carvedilol 12.5 MG Tablet PO (10:23)
[2020-03-07] MEDS: Losartan Potassium 50 MG Tablet PO (10:23)
[2020-03-07] MEDS: ENTECAVIR 1 MG PO (10:24)
[2020-03-07] MEDS: Anastrozole 1 MG TABLET PO (10:25)
--- NOTE | 2020-03-07 11:18 | DCINST_ITS ---
- Discharge Diagnoses Current Active Problems: Current Active and Chronic Problems Breast cancer (Chronic) Hepatitis B carrier (Chronic) You will use the following diet at home:: Calorie/Carbohydrate Controlled (specify 1200, 1400, etc) - 1800 mckinley Your food should be the consistency of: Regular Your liquids should be the consistency of: Regular/Thin Discharge Activity: Return to Normal Activity Weight Bearing Status: Full weight bearing Allergies/Adverse Reactions: Allergies No Known Allergies Allergy (Verified 01/09/19 12:12) Medications to take at Discharge Entecavir 1 tab PO DAILY 10/05/18 Anastrozole 1 mg PO DAILY 03/03/20 Carvedilol [Coreg] 12.5 mg PO BID 03/03/20 Cholecalciferol (Vitamin D3) [Vitamin D3] 1,250 mcg PO QWEEK 03/03/20 Ferrous Sulfate 324 mg PO BID 03/03/20 Losartan Potassium [Cozaar] 50 mg PO DAILY 03/03/20 Anastrozole 1 mg PO DAILY tablet 03/07/20 Carvedilol [Coreg (Beta Jakob)] 12.5 mg PO BID tablet 03/07/20 traMADol [Ultram (G)] 50 mg PO Q6H PRN PRN 7 Days #20 tablet 03/07/20 The following prescriptions were given: traMADol [Ultram (G)] 50 mg PO Q6H PRN PRN 7 Days #20 tablet PRN Reason: Headache Transmission Status: Received by [facility]/pharmacy #[id number] Primary Care Physician: Lopez Reed DO [Primary Care Provider] - Please follow up with your Primary Care Physician in: get a BMP drawn next Tuesday or Tuesday Test Results: Test results from this visit will be discussed in further detail at your follow- up appointment, if applicable. Please Follow Up With: Gaston Campos MD When: within 2 weeks
--- NOTE | 2020-03-09 10:58 | DS.PCM_ITS ---
Discharge Date and Diagnosis Date of Admission: 03/04/20 Date of Discharge: 03/07/20 - Primary Discharge Diagnosis Acute Problems: #1 flareup of chronic hepatitis B with jaundice #2 chronic hepatitis B #3 breast cancer #4 type 2 diabetes #5 essential hypertension - Secondary Discharge Diagnosis Chronic Problems: Chronic Problems Breast cancer (Chronic) Hepatitis B carrier (Chronic) Hospital Course and Treatment Operations: None Procedures: None Summary of Care Provided: The patient is a 55 year old F who was seen in the emergency room at [facility] after having abnormal outpatient labs detecting jaundice and elevated liver enzymes by her PCP. Patient was then sent into the hospital for evaluation, repeat labs showed an elevated bilirubin with elevation of her AST and ALT but not her alkaline phosphatase. Patient was not nauseated or vomiting, [facility] was contacted for transfer the patient to that facility due to the fact that [facility] does not have an active GI physician. [facility] agreed to take the patient but did not have beds, patient remained in the emergency room overnight and the next day the hospitalist service was called to admit the patient here until a bed was available at the [facility]. Patient was admitted here, given IV fluids, and her labs were monitored. Her liver enzymes trended downward, bilirubin initially trended downward after 24 hours but then remained at an elevated level. Patient was asymptomatic with this and I kept the patient here in anticipation of a bed being available at the [facility]-after several days, it was apparent that a bed was not available in the patient's and the patient agreed for discharge home. On 03/07/2020, patient was seen and examined:General: Alert, Oriented x3, Cooperative, - - Jaundice appearing HEENT: Atraumatic, PERRLA, EOMI, Normocephalic Neck: Supple, No JVD, Negative Carotid Bruits Lungs: Clear to auscultation, Normal air movement Cardiovascular: Regular rate, No murmurs Abdomen: Bowel Sounds Present, Soft, Non Tender, Non-Distended Extremities: No clubbing, No cyanosis, No edema, Capillary Refill Less than 3 Seconds Skin: No rashes, No breakdown, apparent jaundice is noted Musculoskeletal: No Tenderness to Palpation of Joints or Extremities Neurological: Cranial nerves II-XII grossly intact, Neuro grossly intact Psych/Mental Status: Normal Affect, Appropriate Patient was discharged home in stable condition on 03/07/2020, she was to follow- up with her primary care physician, it was felt that the patient's flareup of hepatitis B was secondary to her discontinuation of her antiviral medications approximately 2 months prior. Patient states that she misunderstood and stopped her antiviral medication. This medication was restarted during her hospitalization. - Physical Exam Vitals/I&O's: Vital Signs Temp Pulse Resp BP Pulse Ox 98.1 F 75 18 149/91 H 96 03/07/20 10:20 03/07/20 10:20 03/07/20 10:20 03/07/20 10:20 03/07/20 10:20 Oxygen Delivery Method Room Air Weight: 61.4 kg Body Mass Index (BMI) 22.5 Intake and Output for Last 24 Hours 03/07/20 03/08/20 03/09/20 23:59 23:59 23:59 Output Total 550 / 550 Balance -550 / -550 Discharge Activity: Return to Normal Activity Weight Bearing Status: Full weight bearing Home Medications: Medications to take at Discharge Entecavir 1 tab PO DAILY 10/05/18 Anastrozole 1 mg PO DAILY 03/03/20 Carvedilol [Coreg] 12.5 mg PO BID 03/03/20 Cholecalciferol (Vitamin D3) [Vitamin D3] 1,250 mcg PO QWEEK 03/03/20 Ferrous Sulfate 324 mg PO BID 03/03/20 Losartan Potassium [Cozaar] 50 mg PO DAILY 03/03/20 Anastrozole 1 mg PO DAILY tab 03/07/20 Carvedilol [Coreg (Beta Jakob)] 12.5 mg PO BID tab 03/07/20 traMADol [Ultram (G)] 50 mg PO Q6H PRN PRN 7 Days #20 tab 03/07/20 Following Prescriptions Were Given to Patient: traMADol [Ultram (G)] 50 mg PO Q6H PRN PRN 7 Days #20 tab PRN Reason: Headache Transmission Status: Received by [facility]/pharmacy #[id number] Primary Care Physician: Lopez Reed DO [Primary Care Provider] - Please follow up with your Primary Care Physician in: get a BMP drawn next Tuesday or Tuesday Please Follow Up With: Gaston Campos MD When: within 2 weeks Disposition: Home Minutes spent on discharge:: 32 Patient Condition:: Stable Medical Necessity - Tobacco Use Smoking Status: Never smoker Meaningful Use Info Meaningful Use Diagnoses (Choose all that apply): None applicable OBSV E&M: 68839 Observation care discharge
== END 2020-03-07 12:11 | disposition home or self-care (01) ==
LOC: ED 20:11 → MS3 03-04 09:54
PROVIDERS: Nurse Practitioner Family; Admitting Provider Hospitalist; Emergency Provider Emergency Medicine; PCP Student in an Organized Health Care Education/Training Program; Visit Provider Internal Medicine
DX: B16.9 Acute hepatitis B without delta-agent and without hepatic coma (principal); R17 Unspecified jaundice; B18.1 Chronic viral hepatitis B without delta-agent; R18.8 Other ascites; R51.9 Headache, unspecified; R14.0 Abdominal distension (gaseous); N39.0 Urinary tract infection, site not specified; J90 Pleural effusion, not elsewhere classified; D25.9 Leiomyoma of uterus, unspecified; K80.20 Calculus of gallbladder without cholecystitis without obstruction; E11.9 Type 2 diabetes mellitus without complications; I10 Essential (primary) hypertension; Z79.899 Other long term (current) drug therapy; Z92.3 Personal history of irradiation; Z85.3 Personal history of malignant neoplasm of breast; Z92.21 Personal history of antineoplastic chemotherapy; Z86.16 Personal history of COVID-19
CPT/HCPCS: 74177; 80048; 80053; 80076; 81001; 82962; 83605; 83615; 83690; 85025; 85027; 85045; 85610; 87426; 96360; 96361; 99218; 99285; J7030; Q9967; A4216; G0378

== ENCOUNTER → 2020-07-23 09:59 | Outpatient (CLI) | payer BC, SELFPAY ==
[2020-03-04 09:50] VITALS: BMI 22.5
[2020-07-23 12:11] LABS: Hematocrit 36.3 % (37-47); Mean Corp Hgb Conc 30.3 g/dL (32-36); Mean Corpuscular Hgb 20.9 pg (27.0-32.0); Mean Corpuscular Volume 68.9 fL (81-99); Platelet Count 117 K/mm3 (150-450); RBC Distribution Width CV 15.2 % (11.6-14.6); RBC Distribution Width SD 36.7 fl (35.1-43.9); Red Blood Count 5.27 M/mm3 (4.2-5.4)
[2020-07-23 12:49] LABS: ALB/GLOB Ratio 0.8 RATIO (0.9-2.4); AST(SGOT) 31 U/L (15-37); Alanine Aminotransfer ALT/SGPT 35 U/L (13-56); Albumin, Serum 3.5 g/dL (3.2-5.0); Alkaline Phosphatase 74 U/L (45-117); Anion Gap 7 (5-15); BUN 19 mg/dL (7-18); Calcium,Total 9.6 mg/dL (8.5-10.1); Chloride 108 mmol/L (98-107); Creatinine, Serum 0.91 mg/dL (0.55-1.02); EST Glomerular Filtration Rate 68 mL/min (>60); Est Glom Filt Rate - Afr Amer 83 mL/min (>60); Globulin 4.4 g/dL (2.2-4.2); Glucose 91 mg/dL (74-106); Iron 97 ug/dL (50-170); Protein, Total 7.9 g/dL (6.4-8.2); Sodium Level 140 mmol/L (136-145)
[2020-07-23 13:01] LABS: Hepatitis B Surface Antigen REACTIVE (Nonreactive)
[2020-07-24 16:54] LABS: AFP, Tumor Marker 5.9 ng/mL (0.0-8.3)
== END ==
PROVIDERS: PCP Student in an Organized Health Care Education/Training Program; Referring Provider Internal Medicine Gastroenterology; Visit Provider Internal Medicine Gastroenterology
DX: D50.9 Iron deficiency anemia, unspecified (principal); B18.1 Chronic viral hepatitis B without delta-agent
CPT/HCPCS: 36415; 80053; 82105; 83540; 85027; 87340

== ENCOUNTER 2021-04-08 12:15 | Outpatient (CLI) | payer BC, SELFPAY ==
[2021-04-08 15:38] LABS: Hematocrit 39.7 % (37-47); Hemoglobin 12.4 g/dL (12.0-15.0); Mean Corp Hgb Conc 31.2 g/dL (32-36); Mean Corpuscular Hgb 21.5 pg (27.0-32.0); Mean Corpuscular Volume 68.8 fL (81-99); Mean Platelet Vol. 11.2 fl (6.2-12.0); Platelet Count 148 K/mm3 (150-450); RBC Distribution Width CV 14.5 % (11.6-14.6); RBC Distribution Width SD 34.9 fl (35.1-43.9); Red Blood Count 5.77 M/mm3 (4.2-5.4); White Blood Count 4.9 K/mm3 (4.4-11.0)
[2021-04-08 15:43] LABS: Prothrombin Time (Protime)PT. 12.9 SECONDS (11.7-14.9)
[2021-04-08 15:44] LABS: Partial Thromboplast Time 30.8 Seconds (24.1-36.2)
[2021-04-08 15:58] LABS: ALB/GLOB Ratio 0.9 RATIO (0.9-2.4); Albumin, Serum 3.6 g/dL (3.2-5.0); BUN 10 mg/dL (7-18); BUN/Creat Ratio 12.9 RATIO (10-20); Calcium,Total 9.3 mg/dL (8.5-10.1); Creatinine, Serum 0.78 mg/dL (0.55-1.02); EST Glomerular Filtration Rate 81 mL/min (>60); Est Glom Filt Rate - Afr Amer 98 mL/min (>60); Globulin 3.8 g/dL (2.2-4.2); Glucose 120 mg/dL (74-106); Protein, Total 7.4 g/dL (6.4-8.2)
[2021-04-08 15:59] LABS: AST(SGOT) 21 U/L (15-37); Alanine Aminotransfer ALT/SGPT 28 U/L (13-56); Alkaline Phosphatase 43 U/L (45-117); Anion Gap 7 (5-15); Chloride 105 mmol/L (98-107); Iron 111 ug/dL (50-170); Potassium 3.8 mmol/L (3.5-5.1); Sodium Level 139 mmol/L (136-145)
[2021-04-10 14:23] LABS: AFP, Tumor Marker 2.8 ng/mL (0.0-8.3)
== END 2021-04-08 23:59 | disposition home or self-care (01) ==
PROVIDERS: PCP Student in an Organized Health Care Education/Training Program; Referring Provider Internal Medicine Gastroenterology; Visit Provider Internal Medicine Gastroenterology
DX: B18.1 Chronic viral hepatitis B without delta-agent (principal)
CPT/HCPCS: 36415; 80053; 82105; 83540; 85027; 85610; 85730

== ENCOUNTER → 2021-07-17 | Outpatient (CLI) | payer BC, SELFPAY ==
--- NOTE | 2021-07-17 09:15 | US_ITS ---
STUDY: ABDOMINAL ULTRASOUND - ELASTOGRAPHY REASON FOR VISIT: Female, 56 years old. Chronic hepatitis B. TECHNIQUE: Liver stiffness measurements were obtained on a [employer] [id number] 85 ultrasound machine using a CA 1-7 probe following the SRU guidelines. 3 measurements were obtained using a 2-D-SWE method. The IQR/M was 12% suggesting a quality data set. TECHNICAL QUALITY: Adequate. COMPARISON: Comparison is made with prior study done earlier today. FINDINGS: Liver: There is no demonstrated mass lesion. Median liver stiffness measured 7 kPa. US/Elastography Parenchyma/Organ IMPRESSION: Liver stiffness measures 7 kPa compatible with F2-F3 (Mild to moderate liver fibrosis) Metavir score. Electronically Signed: Anibal Hinkle MD at 12:06 EDT ,
--- NOTE | 2021-07-17 09:15 | US_ITS ---
STUDY: ABDOMINAL ULTRASOUND - RIGHT UPPER QUADRANT REASON FOR VISIT: Female, 56 years old CHRONIC HEP B TECHNIQUE: Ultrasound evaluation of the right upper quadrant was performed with real-time and static muñoz-scale imaging. TECHNICAL QUALITY: Adequate. COMPARISON: None. FINDINGS: Liver: The liver measures 13.4 cm. There is normal echogenicity of the liver. The bile ducts are within normal limits. There is hepatic color flow. The direction of portal flow is hepatopetal. There is no demonstrated mass lesion. Gallbladder: Normal distended gallbladder. The gallbladder wall measures 1.8 mm. There is a negative sonographic Calhoun''s sign. There is no pericholecystic fluid. There is a solitary echogenic gallstone within the gallbladder. This measures 7 mm x 9 mm x 5 mm. Findings suggestive of gallbladder polyps. Common Bile Duct (C.B.D.): The common bile duct measures 5.3 mm. Pancreas: Normal size of the head, body and tail of the pancreas. There is normal echogenicity of the pancreas. There is no demonstrated pancreatic mass or cyst. Right Kidney: Normal size of the right kidney. The right kidney measures 10.3 cm x 4.9 cm x 4.9 cm. Normal renal cortex. The right cortex measures 1.4 cm. There is no demonstrated renal mass or cyst. There is no right hydronephrosis. US/Abdomen Limited IMPRESSION: Solitary gallstone. Small gallbladder polyps. Electronically Signed: Anibal Hinkle MD at 12:04 EDT ,
== END | disposition home or self-care (01) ==
LOC: US 09:12
PROVIDERS: PCP Student in an Organized Health Care Education/Training Program; Visit Provider Internal Medicine Gastroenterology
DX: B18.1 Chronic viral hepatitis B without delta-agent (principal)
CPT/HCPCS: 76705; 76981

== ENCOUNTER → 2022-06-09 | Outpatient (CLI) | payer BC, SELFPAY ==
[2022-06-09 12:46] LABS: Hematocrit 40.2 % (37-47); Hemoglobin 12.3 g/dL (12.0-15.0); Mean Corp Hgb Conc 30.6 g/dL (32-36); Mean Corpuscular Hgb 20.6 pg (27.0-32.0); Mean Corpuscular Volume 67.2 fL (81-99); Mean Platelet Vol. 11.2 fl (6.2-12.0); Platelet Count 155 K/mm3 (150-450); RBC Distribution Width CV 16.3 % (11.6-14.6); RBC Distribution Width SD 36.2 fl (35.1-43.9); Red Blood Count 5.98 M/mm3 (4.2-5.4); White Blood Count 5.5 K/mm3 (4.4-11.0)
[2022-06-09 13:16] LABS: AST(SGOT) 23 U/L (15-37); Alanine Aminotransfer ALT/SGPT 45 U/L (13-56); Albumin, Serum 3.6 g/dL (3.2-5.0); Alkaline Phosphatase 53 U/L (45-117); Bilirubin, Direct 0.15 mg/dL (0.00-0.30); Globulin 3.8 g/dL (2.2-4.2); Iron 66 ug/dL (50-170); Protein, Total 7.4 g/dL (6.4-8.2)
[2022-06-10 13:04] LABS: AFP, Tumor Marker 2.4 ng/mL (0.0-9.2)
== END | disposition home or self-care (01) ==
PROVIDERS: PCP Student in an Organized Health Care Education/Training Program; Referring Provider Internal Medicine Gastroenterology; Visit Provider Internal Medicine Gastroenterology
DX: B18.1 Chronic viral hepatitis B without delta-agent (principal); E11.9 Type 2 diabetes mellitus without complications
CPT/HCPCS: 36415; 80076; 82105; 83540; 85027

== ENCOUNTER → 2022-12-15 | Outpatient (CLI) | payer BC, SELFPAY ==
[2022-12-15 13:29] LABS: AST(SGOT) 17 U/L (15-37); Alanine Aminotransfer ALT/SGPT 25 U/L (13-56); Albumin, Serum 3.6 g/dL (3.2-5.0); Alkaline Phosphatase 52 U/L (45-117); Bilirubin, Direct 0.09 mg/dL (0.00-0.30); Globulin 3.8 g/dL (2.2-4.2); Protein, Total 7.4 g/dL (6.4-8.2)
[2022-12-15 13:48] LABS: Hepatitis B Surface Antibody Non-Reactive
[2022-12-15 13:51] LABS: Hepatitis B Surface Antigen REACTIVE (Nonreactive)
[2022-12-16 14:09] LABS: Hepatitis Be Ab Positive (Negative); Hepatitis Be Ag Negative (Negative)
== END | disposition home or self-care (01) ==
PROVIDERS: PCP Student in an Organized Health Care Education/Training Program; Referring Provider Internal Medicine Gastroenterology; Visit Provider Internal Medicine Gastroenterology
DX: B18.1 Chronic viral hepatitis B without delta-agent (principal)
CPT/HCPCS: 36415; 80076; 82105; 86225; 86706; 86707; 87340; 87350

== ENCOUNTER → 2022-12-17 | Outpatient (CLI) | payer BC, SELFPAY ==
[2022-12-17 12:26] LABS: Hematocrit 40.2 % (37-47); Mean Corp Hgb Conc 29.9 g/dL (32-36); Mean Corpuscular Hgb 20.1 pg (27.0-32.0); Mean Corpuscular Volume 67.3 fL (81-99); Mean Platelet Vol. 10.2 fl (6.2-12.0); Platelet Count 156 K/mm3 (150-450); RBC Distribution Width CV 15.8 % (11.6-14.6); RBC Distribution Width SD 36.1 fl (35.1-43.9); Red Blood Count 5.97 M/mm3 (4.2-5.4); White Blood Count 4.8 K/mm3 (4.4-11.0)
== END | disposition home or self-care (01) ==
LOC: LAB.FUTURE 09:49
PROVIDERS: PCP Student in an Organized Health Care Education/Training Program; Referring Provider Internal Medicine Gastroenterology; Visit Provider Internal Medicine Gastroenterology
DX: B18.1 Chronic viral hepatitis B without delta-agent (principal)
CPT/HCPCS: 85027

== ENCOUNTER → 2023-06-20 | Outpatient (CLI) | payer BC, SELFPAY ==
[2023-06-20 17:28] LABS: Hematocrit 38.7 % (37-47); Hemoglobin 11.7 g/dL (12.0-15.0); Mean Corp Hgb Conc 30.2 g/dL (32-36); Mean Corpuscular Hgb 20.1 pg (27.0-32.0); Mean Corpuscular Volume 66.5 fL (81-99); Mean Platelet Vol. 10.9 fl (6.2-12.0); Platelet Count 149 K/mm3 (150-450); RBC Distribution Width CV 16.8 % (11.6-14.6); RBC Distribution Width SD 37.4 fl (35.1-43.9); Red Blood Count 5.82 M/mm3 (4.2-5.4); White Blood Count 6.6 K/mm3 (4.4-11.0)
[2023-06-20 17:52] LABS: AST(SGOT) 26 U/L (15-37); Alanine Aminotransfer ALT/SGPT 30 U/L (13-56); Albumin, Serum 3.8 g/dL (3.2-5.0); Alkaline Phosphatase 52 U/L (45-117); Anion Gap 7 (5-15); BUN 18 mg/dL (7-18); BUN/Creat Ratio 16.1 RATIO (10-20); Calcium,Total 8.7 mg/dL (8.5-10.1); Chloride 101 mmol/L (98-107); Creatinine, Serum 1.12 mg/dL (0.55-1.02); EST Glomerular Filtration Rate 53 mL/min (>60); Est Glom Filt Rate - Afr Amer 64 mL/min (>60); Globulin 3.8 g/dL (2.2-4.2); Glucose 136 mg/dL (74-106); Iron 69 ug/dL (50-170); Potassium 3.5 mmol/L (3.5-5.1); Protein, Total 7.6 g/dL (6.4-8.2); Sodium Level 137 mmol/L (136-145)
[2023-06-20 18:10] LABS: Prothrombin Time (Protime)PT. 12.8 SECONDS (11.7-14.9)
[2023-06-20 18:12] LABS: Partial Thromboplast Time 29.5 Seconds (24.1-36.2)
[2023-06-22 18:07] LABS: AFP, Tumor Marker 2.4 ng/mL (0.0-9.2)
== END | disposition home or self-care (01) ==
PROVIDERS: PCP Student in an Organized Health Care Education/Training Program; Referring Provider Internal Medicine Gastroenterology; Visit Provider Internal Medicine Gastroenterology
DX: B18.1 Chronic viral hepatitis B without delta-agent (principal)
CPT/HCPCS: 36415; 80053; 82105; 83540; 85027; 85610; 85730

== ENCOUNTER → 2024-11-07 | Outpatient (CLI) | payer BC, SELFPAY ==
[2024-11-07 17:51] LABS: Hematocrit 41.7 % (37-47); Hemoglobin 12.7 g/dL (12.0-15.0); Mean Corp Hgb Conc 30.5 g/dL (32-36); Mean Corpuscular Volume 66.7 fL (81-99); Platelet Count 140 K/mm3 (150-450); RBC Distribution Width CV 16.3 % (11.6-14.6); RBC Distribution Width SD 35.6 fl (35.1-43.9); Red Blood Count 6.25 M/mm3 (4.2-5.4); White Blood Count 6.1 K/mm3 (4.4-11.0)
[2024-11-07 18:11] LABS: AST(SGOT) 25 U/L (<=31); Alanine Aminotransfer ALT/SGPT 20 U/L (<=34); Albumin, Serum 4.3 g/dL (3.4-4.8); Alkaline Phosphatase 61 U/L (35-104); Bilirubin, Direct 0.13 mg/dL (0.00-0.30); Globulin 3.1 g/dL (2.2-4.2)
== END | disposition home or self-care (01) ==
LOC: MTLAB 16:04
PROVIDERS: PCP Student in an Organized Health Care Education/Training Program; Referring Provider Internal Medicine Gastroenterology; Visit Provider Internal Medicine Gastroenterology
DX: B18.1 Chronic viral hepatitis B without delta-agent (principal)
CPT/HCPCS: 36415; 80076; 82105; 85027